=== PATIENT | male | born 1955 | race American Indian/Alaskan Native ===

== ENCOUNTER 2021-10-20 19:54 | Inpatient (IN) | payer OTHER ==
[2021-10-20] MEDS ORDERED: fentaNYL 100 MCG/2 ML INJ ONE (20:00)
[2021-10-20] MEDS ORDERED: LIDOCAINE PF 100 MG/5 ML (CARDIAC SYRINGE) IV ONE (20:08)
[2021-10-20] MEDS ORDERED: LACTATED RINGERS 1000 ML IV SOLN IV ONE (20:43)
--- NOTE | 2021-10-20 20:47 | Emergency Department Report ---
ED General Adult HPI - General Chief complaint: Dyspnea/Respdistress Stated complaint: RESPIRATORY DISTRESS Time Seen by Provider: 10/20/21 20:30 Source: patient, EMS (Verbal report received from emergency medical services. EMS documentation not available at time of chart dictation ), RN notes reviewed, old records reviewed Mode of arrival: Stretcher Limitations: Altered Mental Status - History of Present Illness Initial comments: Primary CARE doctor: Dr. José Past medical history: Prostate cancer, metastases to bone, chronic respiratory failure, anemia, generalized weakness, indwelling tracheostomy This is a 66-year-old gentleman. He is not known to myself previously. He is brought to the hospital by emergency medical services with an EMS articulated complaint of tracheostomy dislodgment and inability to replace trachea. Patient is found to be febrile and tachycardic with EMS and in the emergency room. In the ER, patient receiving [id number] ventilation from EMS and from respiratory therapy, and they are also attempting to replace patient's tracheostomy. They were unsuccessful. Patient is desaturating. Patient placed on nasal cannula at 15 L/min. Using a gum elastic bougie catheter, the patient's tracheal stoma is gently accessed and bougie is gently advanced, and palpable tracheal clicks are appreciated. A 6.0 endotracheal tube is then gently inserted over the bougie catheter, and placed appropriately into the patient's stoma. The pilot fuel engineer balloon was inflated, breath sounds are appreciated bilaterally, and patient has appropriate end-tidal capnography color change. Post procedure x-ray demonstrates close proximity to the right mainstem, so the endotracheal tube is subsequently retracted, repeat x-rays obtained, demonstrates appropriate placement. The tube was then sutured into place. A code sepsis is called overhead. The patient is awake but confused. He is not able to describe the qualitative nature of his symptoms, exacerbating factors, relieving factors or aggravating factors. No additional history is available at this time -: unknown - Related Data Allergies Allergy/AdvReac Type Severity Reaction Status Date / Time No Known Allergies Allergy Verified 10/20/21 20:58 ED Review of Systems ROS: Stated complaint: RESPIRATORY DISTRESS Other details as noted in HPI Comment: Unobtainable due to pts medical conditions ED Physical Exam - General Limitations: Altered Mental Status General appearance: anxious, in distress, obese - Head Head exam: Present: atraumatic, normocephalic - Eye Eye exam: Present: normal appearance, EOMI - ENT ENT exam: Present: normal exam, normal orophraynx, mucous membranes moist, normal external ear exam - Neck Neck exam: Absent: normal inspection (Tracheostomy stoma is noted to have some purulent material discharging.), tenderness, meningismus - Respiratory Respiratory exam: Present: respiratory distress, rales, rhonchi - Cardiovascular Cardiovascular Exam: Present: normal rhythm, tachycardia, normal heart sounds. Absent: bradycardia, irregular rhythm, systolic murmur, diastolic murmur, rubs, gallop - GI/Abdominal GI/Abdominal exam: Present: soft. Absent: distended, tenderness, guarding, rebound, rigid, pulsatile mass - Extremities Exam Extremities exam: Present: normal inspection, other (2+ pulses noted in the bilateral upper and lower extremities. There is no palpable cord. negative Homans sign. Muscular compartments are soft. The pelvis is stable.). Absent: calf tenderness - Back Exam Back exam: Present: normal inspection. Absent: tenderness, CVA tenderness (R), CVA tenderness (L), paraspinal tenderness, vertebral tenderness - Neurological Exam Neurological exam: Present: altered, other (The patient is awake. The patient moves 4 extremities. The patient is anxious and confused.) - Psychiatric Psychiatric exam: Present: anxious - Skin Skin exam: Present: warm, dry, intact, normal color. Absent: rash ED Course Vital Signs 10/20/21 10/20/21 10/20/21 19:56 20:00 20:05 Temperature Pulse Rate Respiratory Rate Blood Pressure Blood Pressure [Left] O2 Sat by Pulse 93 91 Oximetry O2 Sat by Pulse 96 Oximetry [ Changed] 10/20/21 10/20/21 10/20/21 20:16 20:31 20:45 Temperature Pulse Rate 130 H 129 H Respiratory 27 H 24 Rate Blood Pressure 90/55 98/64 Blood Pressure [Left] O2 Sat by Pulse 94 100 100 Oximetry O2 Sat by Pulse Oximetry [ Changed] 10/20/21 10/20/21 10/20/21 20:46 20:59 21:01 Temperature 99.3 F Pulse Rate 126 H 152 H 145 H Respiratory 24 24 28 H Rate Blood Pressure 100/70 89/62 Blood Pressure 89/62 [Left] O2 Sat by Pulse 100 100 Oximetry O2 Sat by Pulse Oximetry [ Changed] 10/20/21 10/20/21 10/20/21 21:15 21:31 21:45 Temperature Pulse Rate 129 H 130 H 128 H Respiratory 23 17 21 Rate Blood Pressure 96/56 99/58 105/66 Blood Pressure [Left] O2 Sat by Pulse 100 100 100 Oximetry O2 Sat by Pulse Oximetry [ Changed] 10/20/21 10/20/21 10/20/21 22:01 22:15 22:31 Temperature Pulse Rate 126 H 126 H 123 H Respiratory 23 23 26 H Rate Blood Pressure 100/70 105/71 110/64 Blood Pressure [Left] O2 Sat by Pulse 100 100 100 Oximetry O2 Sat by Pulse Oximetry [ Changed] 10/20/21 22:45 Temperature Pulse Rate 124 H Respiratory 22 Rate Blood Pressure 114/66 Blood Pressure [Left] O2 Sat by Pulse 100 Oximetry O2 Sat by Pulse Oximetry [ Changed] - Reevaluation(s) Reevaluation #1: 10/20/21 22:03 Differential diagnosis, including but not limited to: Sepsis, bacteremia, viremia, pneumonia, urinary tract infection, tracheostomy failure Assessment and plan: 66-year-old gentleman ruling in for sepsis, complicated by tracheostomy failure. I have intubated the patient through his tracheal stoma, and he is currently being maintained on a mechanical ventilator. Code sepsis called overhead, fluids, antibiotics, and appropriate laboratory studies. X-ray of the chest reviewed and appreciated. Contacted general surgery on-call, Dr. Rausch. Contacted critical care on-call, Dr. Santos. Discussed the patient's history, physical, and clinical impression. Dr. Santos of pulmonary critical care will follow in consultation. Dr. Hernandez of general surgery will follow in consultation. Blood pressure acceptable at this time, patient clinically improved on mechanical ventilation. Admit to the medical service for further management and care for the aforementioned. Hospital physician is paged to arrange admission. 10/20/21 23:02 Dr Means to admit to ICU Patient is 175 pounds, not 175 kg - Intubation Time Out Performed: No (Emergency situation) Sedative: none Laryngoscope: none Assist Device Used: Bougie ET Tube Size: 6 Tube Secured Depth (cm): 16 Tube Secured Location: other (At the neck) Tube Placement Confirmation: equal breath sounds bilat, no breath sounds over epi, confirmation by capnometr Additional Comments: Patient placed on nasal cannula at 15 L/min. He is preoxygenated to 99%. A gum elastic bougie catheter is gently placed through the tracheal stoma, and inserted distally, appreciating palpable tracheal clicks. A 6.0 endotracheal tube is then gently inserted over the gum elastic bougie catheter, and advanced distally. The bougie catheter is then removed, and the polyp balloon is inflated. The 6.0 endotracheal tube is sutured into the skin with 3-0 monofil ament nonabsorbable sutures. The patient tolerated the procedure adequately ED Medical Decision Making - Lab Data Result diagrams: 10/20/21 21:03 10/20/21 21:03 Vital Signs 10/20/21 10/20/21 10/20/21 19:56 20:00 20:05 Temperature Pulse Rate Respiratory Rate Blood Pressure Blood Pressure [Left] O2 Sat by Pulse 93 91 Oximetry O2 Sat by Pulse 96 Oximetry [ Changed] 10/20/21 10/20/21 10/20/21 20:16 20:31 20:45 Temperature Pulse Rate 130 H 129 H Respiratory 27 H 24 Rate Blood Pressure 90/55 98/64 Blood Pressure [Left] O2 Sat by Pulse 94 100 100 Oximetry O2 Sat by Pulse Oximetry [ Changed] 10/20/21 10/20/21 10/20/21 20:46 20:59 21:01 Temperature 99.3 F Pulse Rate 152 H 145 H Respiratory 24 24 28 H Rate Blood Pressure 89/62 Blood Pressure 89/62 [Left] O2 Sat by Pulse 100 Oximetry O2 Sat by Pulse Oximetry [ Changed] 10/20/21 10/20/21 21:15 21:31 Temperature Pulse Rate 129 H 130 H Respiratory 23 17 Rate Blood Pressure 96/56 99/58 Blood Pressure [Left] O2 Sat by Pulse 100 100 Oximetry O2 Sat by Pulse Oximetry [ Changed] Lab Results 10/20/21 10/20/21 10/20/21 Range/Units 21:03 21:03 21:03 WBC 9.2 (4.5-11.0) K/mm3 RBC 2.86 L (3.65-5.03) M/mm3 Hgb 7.7 L (11.8-15.2) gm/dl Hct 23.6 L (35.5-45.6) % MCV 83 L (84-94) fl MCH 27 L (28-32) pg MCHC 33 (32-34) % RDW 23.0 H (13.2-15.2) % Plt Count 535 H (140-440) K/mm3 Lymph % (Auto) 6.7 L (13.4-35.0) % [place] % (Auto) 9.4 H (0.0-7.3) % Eos % (Auto) 0.2 (0.0-4.3) % Baso % (Auto) 0.2 (0.0-1.8) % Lymph # (Auto) 0.6 L (1.2-5.4) K/mm3 [place] # (Auto) 0.9 H (0.0-0.8) K/mm3 Eos # (Auto) 0.0 (0.0-0.4) K/mm3 Baso # (Auto) 0.0 (0.0-0.1) K/mm3 Seg Neutrophils % 83.5 H (40.0-70.0) % Seg Neutrophils # 7.6 (1.8-7.7) K/mm3 APTT 41.4 H (24.2-36.6) Sec. Sodium 136 L (137-145) mmol/L Potassium 5.0 (3.6-5.0) mmol/L Chloride 101.0 (98-107) mmol/L Carbon Dioxide 18 L (22-30) mmol/L Anion Gap 22 mmol/L BUN 16 (9-20) mg/dL Creatinine 0.7 L (0.8-1.3) mg/dL Estimated GFR > 60 ml/min BUN/Creatinine Ratio 23 % Glucose 114 H (75-100) mg/dL Lactic Acid (0.7-2.0) mmol/L Calcium 7.1 L (8.4-10.2) mg/dL Total Bilirubin 0.90 (0.1-1.2) mg/dL AST 70 H (5-40) units/L ALT 7 (7-56) units/L Alkaline Phosphatase 1174 H (35-129) units/L Total Protein 5.1 L (6.3-8.2) g/dL Albumin 2.3 L (3.9-5) g/dL Albumin/Globulin Ratio 0.8 % Urine Color (Yellow) Urine Turbidity (Clear) Urine pH (5.0-7.0) Ur Specific [place] (1.003-1.030) Urine Protein (Negative) mg/dL Urine Glucose (UA) (Negative) mg/dL Urine Ketones (Negative) mg/dL Urine Blood (Negative) Urine Nitrite (Negative) Ur Reducing Substances Urine Bilirubin (Negative) Urine Ictotest Urine Urobilinogen (<2.0) mg/dL Ur Leukocyte Esterase (Negative) Urine WBC (Auto) (0.0-6.0) /HPF Urine RBC (Auto) (0.0-6.0) /HPF Urine Mucus /HPF 10/20/21 10/20/21 Range/Units 21:03 Unknown WBC (4.5-11.0) K/mm3 RBC (3.65-5.03) M/mm3 Hgb (11.8-15.2) gm/dl Hct (35.5-45.6) % MCV (84-94) fl MCH (28-32) pg MCHC (32-34) % RDW (13.2-15.2) % Plt Count (140-440) K/mm3 Lymph % (Auto) (13.4-35.0) % [place] % (Auto) (0.0-7.3) % Eos % (Auto) (0.0-4.3) % Baso % (Auto) (0.0-1.8) % Lymph # (Auto) (1.2-5.4) K/mm3 [place] # (Auto) (0.0-0.8) K/mm3 Eos # (Auto) (0.0-0.4) K/mm3 Baso # (Auto) (0.0-0.1) K/mm3 Seg Neutrophils % (40.0-70.0) % Seg Neutrophils # (1.8-7.7) K/mm3 APTT (24.2-36.6) Sec. Sodium (137-145) mmol/L Potassium (3.6-5.0) mmol/L Chloride (98-107) mmol/L Carbon Dioxide (22-30) mmol/L Anion Gap mmol/L BUN (9-20) mg/dL Creatinine (0.8-1.3) mg/dL Estimated GFR ml/min BUN/Creatinine Ratio % Glucose (75-100) mg/dL Lactic Acid 3.10 H* (0.7-2.0) mmol/L Calcium (8.4-10.2) mg/dL Total Bilirubin (0.1-1.2) mg/dL AST (5-40) units/L ALT (7-56) units/L Alkaline Phosphatase (35-129) units/L Total Protein (6.3-8.2) g/dL Albumin (3.9-5) g/dL Albumin/Globulin Ratio % Urine Color [place] (Yellow) Urine Turbidity Clear (Clear) Urine pH 5.0 (5.0-7.0) Ur Specific [place] 1.035 H (1.003-1.030) Urine Protein 30 mg/dl (Negative) mg/dL Urine Glucose (UA) Neg (Negative) mg/dL Urine Ketones Neg (Negative) mg/dL Urine Blood Neg (Negative) Urine Nitrite Neg (Negative) Ur Reducing Substances Not Reportable Urine Bilirubin Neg (Negative) Urine Ictotest Not Reportable Urine Urobilinogen < 2.0 (<2.0) mg/dL Ur Leukocyte Esterase Negative (Negative) Urine WBC (Auto) 2.0 (0.0-6.0) /HPF Urine RBC (Auto) < 1.0 (0.0-6.0) /HPF Urine Mucus Few /HPF - EKG Data -: EKG Interpreted by [place] EKG shows normal: sinus rhythm Rate: tachycardia - EKG Data When compared to previous EKG there are: previous EKG unavailable 10/20/21 21:52 The EKG is interpreted at 21: 24 Sinus rhythm, tachycardia, rate 128 bpm. Motion artifact. PACs. Not a STEMI. Normal axis. - Radiology Data Radiology results: pending, report reviewed, image reviewed XR chest 1V ap INDICATION / CLINICAL INFORMATION: ett placement. COMPARISON: None available. FINDINGS: SUPPORT DEVICES: Endotracheal tube projects over the midtrachea. Right chest wall port catheter tip terminates over the cavoatrial junction. HEART /PULMONARY VASCULATURE: Heart is enlarged. LUNGS / PLEURA: There is masslike consolidation left upper lung. Right lung appears to be clear. No sizable pleural effusion. No pneumothorax. Additional findings: Diffuse sclerosis of the osseous structures, likely reflecting diffuse osseous metastatic disease. IMPRESSION: 1. Left upper lobe mass, presumably reflecting neoplasm. 2. Suspected diffuse osseous metastatic disease. 3. Endotracheal tube projects over the midtrachea. Signer Name: Mamadou Crocker MD Signed: 10/20/2021 8:28 PM Workstation Name: [id number] Critical Care Time: Yes Critical care time in (mins) excluding proc time.: 45 Critical care attestation.: If time is entered above; I have spent that time in minutes in the direct care of this critically ill patient, excluding procedure time. ED Disposition Clinical Impression: Sepsis, Tracheostomy malfunction, Chronic respiratory failure, Prostate cancer metastatic to bone Disposition: ADMITTED INPATIENT Is pt being admited?: Yes Does the pt Need Aspirin: No Condition: Fair Referrals: LUKE JOSÉ MD [Primary Care Provider] - 3-5 Days
[2021-10-20] MEDS: fentaNYL 100 MCG/2 ML INJ IV PRN ×2 (21:01→22:01)
[2021-10-20 21:06] LABS: Mucus,Urine FEW /HPF; RBC,Urine < 1.0 /HPF (0.0-6.0)
[2021-10-20 21:16] LABS: Color,Urine Amber (Yellow)
[2021-10-20 21:17] LABS: Bilirubin,Urine NEG (Negative); Blood,Urine NEG (Negative); Urobilinogen,Urine < 2.0 mg/dL (<2.0)
[2021-10-20 21:18] LABS: Basophils % (Auto) 0.2 % (0.0-1.8); Eosinophils % (Auto) 0.2 % (0.0-4.3); Hematocrit 23.6 % (35.5-45.6); Hemoglobin 7.7 gm/dl (11.8-15.2); Lymphocytes # (Auto) 0.6 K/mm3 (1.2-5.4); Lymphocytes % (Auto) 6.7 % (13.4-35.0); Mean Corpuscular HGB Conc 33 % (32-34); Mean Corpuscular Volume 83 fl (84-94); Monocytes # (Auto) 0.9 K/mm3 (0.0-0.8); Monocytes % (Auto) 9.4 % (0.0-7.3); Platelet Count 535 K/mm3 (140-440); Red Blood Count 2.86 M/mm3 (3.65-5.03)
--- NOTE | 2021-10-20 21:33 | XRay Report ---
XR chest 1V ap INDICATION / CLINICAL INFORMATION: ett placement. COMPARISON: None available. FINDINGS: SUPPORT DEVICES: Endotracheal tube projects over the midtrachea. Right chest wall port catheter tip t erminates over the cavoatrial junction. HEART /PULMONARY VASCULATURE: Heart is enlarged. LUNGS / PLEURA: There is masslike consolidation left upper lung. Right lung appears to be clear. No s izable pleural effusion. No pneumothorax. Additional findings: Diffuse sclerosis of the osseous structures, likely reflecting diffuse osseous m etastatic disease. IMPRESSION: 1. Left upper lobe mass, presumably reflecting neoplasm. 2. Suspected diffuse osseous metastatic disease. 3. Endotracheal tube projects over the midtrachea. Signer Name: Mamadou Crocker MD Signed: 10/20/2021 9:28 PM Workstation Name: [id number]
[2021-10-20 21:38] LABS: Alanine Aminotransferase 7 units/L (7-56); Albumin 2.3 g/dL (3.9-5); Blood Urea Nitrogen 16 mg/dL (9-20); Calcium 7.1 mg/dL (8.4-10.2); Hemolysis Index 4
[2021-10-20 21:41] LABS: BUN/Creatinine Ratio 23
[2021-10-20] MEDS ORDERED: ACETAMINOPHEN 650 MG RECT SUPP PR ONE (21:44)
[2021-10-20] MEDS ORDERED: VANCOMYCIN 2,000 MG in SODIUM CHLORIDE 0.9% 500 ML 500 ML IV ONE (22:00)
[2021-10-20 22:42] LABS: ABG Base Excess -6.4 mmol/L (-2.0-3.0); ABG Methemoglobin 0.6 % (0.0-1.5); ABG Oxygen Saturation 99.3 % (95.0-99.0); ABG PCO2 30.9 mm Hg; ABG PH 7.383 pH Units (7.350-7.450)
[2021-10-20] MEDS ORDERED: CEFEPIME/NS 2 GM/100 ML 2 GM/100 ML BAG IV ONE (23:44)
[2021-10-20] MEDS ORDERED: VANCOMYCIN PHARMACY TO DOSE IV SCH (23:45)
[2021-10-20] MEDS ORDERED: ONDANSETRON 4 MG/2 ML INJ IV PRN (23:57)
[2021-10-20] MEDS ORDERED: MORPHINE 2 MG/1 ML INJ IV PRN (23:57)
[2021-10-20] MEDS ORDERED: ALBUTEROL 2.5 MG/3 ML NEBU IH PRN (23:57)
[2021-10-20] MEDS ORDERED: ACETAMINOPHEN 325 MG TAB PO PRN (23:57)
--- NOTE | 2021-10-21 00:05 | History and Physical Report ---
History of Present Illness Date of examination: 10/21/21 Date of admission: 10/21/21 Chief complaint: Dyspnea Respiratory distress History of present illness: Prostate cancer, metastases to bone, chronic respiratory failure, anemia, generalized weakness, indwelling tracheostomy 66-year-old gentleman with history of Prostate cancer, metastases to bone, chronic respiratory failure, anemia, generalized weakness, indwelling tracheostomy was brought to the emergency room because of tracheostomy dislodgment and inability to replace trachea. Patient is found to be febrile and tachycardic with EMS and in the emergency room. In the ER, patient receiving [id number] ventilation from EMS and from respiratory therapy, and they are also attempting to replace patient's tracheostomy. They were unsuccessful. Patient is desaturating. Patient placed on nasal cannula at 15 L/min. Using a gum elastic bougie catheter A 6.0 endotracheal tube is then gently inserted over the bougie catheter, and placed appropriately into the patient's stoma. The remotely piloted vehicle controller balloon was inflated, breath sounds are appreciated bilaterally, and patient has appropriate end-tidal capnography color change. Post procedure x-ray demonstrates close proximity to the right mainstem, so the endotracheal tube is subsequently retracted, repeat x-rays obtained, demonstrates appropriate placement. The tube was then sutured into place. A code sepsis is called overhead. The patient is awake but confused. In the emergency room patient also found to have WBC of 9.2, hemoglobin 7.7 and lactic acid 3.10. We are going to admit the patient to the ICU will consult critical care and surgery for evaluation 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, chronic respiratory failure, anemia, generalized weakness, indwelling tracheostomy) Past Surgical History: Other (Tracheostomy) Social history: other (Unknown) Family history: no significant family history Medications and Allergies Allergies Allergy/AdvReac Type Severity Reaction Status Date / Time No Known Allergies Allergy Verified 10/20/21 20:58 Active Meds: Active Medications Fentanyl (Fentanyl 100 Mcg/2 Ml Inj) 50 mcg IV Q10MIN PRN PRN Reason: ANALGESIA Last Admin: 10/20/21 22:01 Dose: 50 mcg Fentanyl Citrate (Fentanyl Drip Premix) 2,000 mcg in 100 mls @ 8.765 mls/hr IV TITR [place]; Protocol Cefepime HCl (Cefepime/Ns 2 Gm/100 Ml) 2 gm in 100 mls @ 200 mls/hr IV ONCE ONE; Protocol Stop: 10/21/21 00:13 Last Admin: 10/20/21 23:13 Dose: 200 mls/hr Review of Systems All systems: negative Constitutional: other (Respiratory distress) Cardiovascular: shortness of breath, dyspnea on exertion Respiratory: cough, shortness of breath, dyspnea on exertion Exam - Constitutional Vitals: Temp Pulse Resp BP Pulse Ox 99.3 F 131 H 21 113/63 95 10/20/21 20:59 10/20/21 23:39 10/20/21 23:31 10/20/21 23:31 10/20/21 23:39 General appearance: Present: severe distress - EENT Eyes: Present: PERRL ENT: hearing intact, clear oral mucosa - Neck Neck: Present: supple, normal ROM - Respiratory Respiratory effort: normal Respiratory: bilateral: diminished - Cardiovascular Heart Sounds: Present: S1 & S2. Absent: rub, click - Extremities Extremities: pulses symmetrical, No edema Peripheral Pulses: within normal limits - Abdominal General gastrointestinal: Present: soft, non-tender, non-distended, normal bowel sounds Male genitourinary: Present: normal - Integumentary Integumentary: Present: clear, warm, dry - Musculoskeletal Musculoskeletal: gait normal, strength equal bilaterally - Psychiatric Psychiatric: other (Patient is awake but confused) - Neurologic Neurologic: CNII-XII intact, moves all extremities, other (Patient is alert but confused) Results - Labs CBC & Chem 7: 10/20/21 21:03 10/20/21 21:03 Labs: Laboratory Last Values WBC 9.2 K/mm3 (4.5-11.0) 10/20/21 21:03 RBC 2.86 M/mm3 (3.65-5.03) L 10/20/21 21:03 Hgb 7.7 gm/dl (11.8-15.2) L 10/20/21 21:03 Hct 23.6 % (35.5-45.6) L 10/20/21 21:03 MCV 83 fl (84-94) L 10/20/21 21:03 MCH 27 pg (28-32) L 10/20/21 21:03 MCHC 33 % (32-34) 10/20/21 21:03 RDW 23.0 % (13.2-15.2) H 10/20/21 21:03 Plt Count 535 K/mm3 (140-440) H 10/20/21 21:03 Lymph % (Auto) 6.7 % (13.4-35.0) L 10/20/21 21:03 [place] % (Auto) 9.4 % (0.0-7.3) H 10/20/21 21:03 Eos % (Auto) 0.2 % (0.0-4.3) 10/20/21 21:03 Baso % (Auto) 0.2 % (0.0-1.8) 10/20/21 21:03 Lymph # (Auto) 0.6 K/mm3 (1.2-5.4) L 10/20/21 21:03 [place] # (Auto) 0.9 K/mm3 (0.0-0.8) H 10/20/21 21:03 Eos # (Auto) 0.0 K/mm3 (0.0-0.4) 10/20/21 21:03 Baso # (Auto) 0.0 K/mm3 (0.0-0.1) 10/20/21 21:03 Seg Neutrophils % 83.5 % (40.0-70.0) H 10/20/21 21:03 Seg Neutrophils # 7.6 K/mm3 (1.8-7.7) 10/20/21 21:03 APTT 41.4 Sec. (24.2-36.6) H 10/20/21 21:03 ABG pH 7.383 pH Units (7.350-7.450) 10/20/21 22:30 ABG pCO2 30.9 mm Hg 10/20/21 22:30 ABG pO2 218.0 mm Hg (80.0-90.0) H 10/20/21 22:30 ABG HCO3 18.0 mmol/L (20.0-26.0) L 10/20/21 22:30 ABG O2 Saturation 99.3 % (95.0-99.0) H 10/20/21 22:30 ABG O2 Content 11.0 (0.0-44) 10/20/21 22:30 ABG Base Excess -6.4 mmol/L (-2.0-3.0) L 10/20/21 22:30 ABG Hemoglobin 7.6 gm/dl (14.0-18.0) L 10/20/21 22:30 ABG Carboxyhemoglobin 1.1 % (0.0-5.0) 10/20/21 22:30 ABG Methemoglobin 0.6 % (0.0-1.5) 10/20/21 22:30 Oxyhemoglobin 97.6 % (95.0-99.0) 10/20/21 22:30 FiO2 100 % 10/20/21 22:30 Sodium 136 mmol/L (137-145) L 10/20/21 21:03 Potassium 5.0 mmol/L (3.6-5.0) 10/20/21 21:03 Chloride 101.0 mmol/L (98-107) 10/20/21 21:03 Carbon Dioxide 18 mmol/L (22-30) L 10/20/21 21:03 Anion Gap 22 mmol/L 10/20/21 21:03 BUN 16 mg/dL (9-20) 10/20/21 21:03 Creatinine 0.7 mg/dL (0.8-1.3) L 10/20/21 21:03 Estimated GFR > 60 ml/min 10/20/21 21:03 BUN/Creatinine Ratio 23 % 10/20/21 21:03 Glucose 114 mg/dL (75-100) H 10/20/21 21:03 Lactic Acid 3.10 mmol/L (0.7-2.0) H* 10/20/21 21:03 Calcium 7.1 mg/dL (8.4-10.2) L 10/20/21 21:03 Total Bilirubin 0.90 mg/dL (0.1-1.2) 10/20/21 21:03 AST 70 units/L (5-40) H 10/20/21 21:03 ALT 7 units/L (7-56) 10/20/21 21:03 Alkaline Phosphatase 1174 units/L (35-129) H 10/20/21 21:03 Total Protein 5.1 g/dL (6.3-8.2) L 10/20/21 21:03 Albumin 2.3 g/dL (3.9-5) L 10/20/21 21:03 Albumin/Globulin Ratio 0.8 % 10/20/21 21:03 Urine Color [place] (Yellow) 10/20/21 Unknown Urine Turbidity Clear (Clear) 10/20/21 Unknown Urine pH 5.0 (5.0-7.0) 10/20/21 Unknown Ur Specific [place] 1.035 (1.003-1.030) H 10/20/21 Unknown Urine Protein 30 mg/dl mg/dL (Negative) 10/20/21 Unknown Urine Glucose (UA) Neg mg/dL (Negative) 10/20/21 Unknown Urine Ketones Neg mg/dL (Negative) 10/20/21 Unknown Urine Blood Neg (Negative) 10/20/21 Unknown Urine Nitrite Neg (Negative) 10/20/21 Unknown Ur Reducing Substances Not Reportable 10/20/21 Unknown Urine Bilirubin Neg (Negative) 10/20/21 Unknown Urine Ictotest Not Reportable 10/20/21 Unknown Urine Urobilinogen < 2.0 mg/dL (<2.0) 10/20/21 Unknown Ur Leukocyte Esterase Negative (Negative) 10/20/21 Unknown Urine WBC (Auto) 2.0 /HPF (0.0-6.0) 10/20/21 Unknown Urine RBC (Auto) < 1.0 /HPF (0.0-6.0) 10/20/21 Unknown Urine Mucus Few /HPF 10/20/21 Unknown Microbiology: Microbiology 10/20/21 21:03 Peripheral/Venous Blood Culture - Preliminary Culture in Progress 10/20/21 21:03 Peripheral/Venous Blood Culture - Preliminary Culture in Progress - Imaging and Cardiology Chest x-ray: report reviewed Assessment and Plan VTE prophylaxis?: Chemical Plan of care discussed with patient/family: Yes - Patient Problems (1) Acute respiratory failure Current Visit: Yes Status: Acute Plan to address problem: Admit the patient to the ICU. Patient is on vent through tracheostomy, DuoNeb by nebulizer every 4 hours. Albuterol via nebulizer every 4 hours as needed. Will consult critical care evaluation as well as surgery for evaluation and management. (2) Sepsis Current Visit: Yes Status: Acute Plan to address problem: D5 half-normal saline at the rate of 100 cc/h. Cefepime 1 g IV every 8 hours and vancomycin 1 g IV every 12 hours. We will do the blood cultures sputum culture. We recheck the CBC and lactic acid in the morning. (3) Weakness Current Visit: Yes Status: Acute Plan to address problem: D5 half-normal saline at the rate of 100 cc/h. Reconsult nutrition evaluation for malnutrition (4) Anemia Current Visit: Yes Status: Acute Plan to address problem: We will closely monitor the hemoglobin we will transfuse if the hemoglobin less than 7.5. Recheck CBC in the morning (5) Prostate cancer metastatic to bone Current Visit: Yes Status: Acute Plan to address problem: . We continue the home medication. Outpatient follow-up with oncology. (6) Tracheostomy malfunction Current Visit: Yes Status: Acute Plan to address problem: Patient is on vent through tracheostomy, DuoNeb by nebulizer every 4 hours. Albuterol via nebulizer every 4 hours as needed. Will consult critical care evaluation as well as surgery for evaluation and management. (7) DVT prophylaxis Current Visit: Yes Status: Acute Plan to address problem: Heparin 5000 units subcu every 12 hours for DVT prophylaxis. Pepcid 20 mg IV every 12 hours for GI prophylaxis. Patient is a full code
[2021-10-21] MEDS: fentaNYL DRIP Premix 2,000 MCG/100 ML BAG IV SCH ×3 (01:26→23:22)
[2021-10-21] MEDS: IPRATROPIUM/ALBUTEROL SULFATE 3 ML AMPUL.NEB IH SCH ×4 (04:26→21:08)
[2021-10-21] MEDS: D5W/0.45% NACL 1,000 ML IV SCH (04:32)
[2021-10-21 05:05] LABS: Basophils # (Auto) 0.1 K/mm3 (0.0-0.1); Basophils % (Auto) 0.8 % (0.0-1.8); Eosinophils % (Auto) 0.6 % (0.0-4.3); Hematocrit 21.7 % (35.5-45.6); Hemoglobin 6.9 gm/dl (11.8-15.2); Lymphocytes # (Auto) 0.5 K/mm3 (1.2-5.4); Mean Corpuscular HGB Conc 32 % (32-34); Mean Corpuscular Volume 83 fl (84-94); Monocytes # (Auto) 0.6 K/mm3 (0.0-0.8); Monocytes % (Auto) 9.2 % (0.0-7.3); Platelet Count 490 K/mm3 (140-440); Red Blood Count 2.63 M/mm3 (3.65-5.03)
[2021-10-21 05:12] LABS: Red Cell Distribution Width 22.7 % (13.2-15.2)
[2021-10-21 05:13] LABS: ABG HCO3 19.1 mmol/L (20.0-26.0); ABG Methemoglobin 0.5 % (0.0-1.5); ABG Oxygen Saturation 97.5 % (95.0-99.0); ABG PCO2 30.7 mm Hg; ABG PH 7.411 pH Units (7.350-7.450); ABG PO2 94.2 mm Hg (80.0-90.0)
[2021-10-21 05:26] LABS: BUN/Creatinine Ratio 30; Blood Urea Nitrogen 18 mg/dL (9-20); Calcium 7.6 mg/dL (8.4-10.2); Hemolysis Index 8
--- NOTE | 2021-10-21 07:02 | Consultation ---
History of Present Illness Reason for consult: abdominal pain - History of present illness History of present illness: 66-year-old gentleman with history of Prostate cancer, metastases to bone, chronic respiratory failure, anemia, generalized weakness, indwelling tracheostomy was brought to the emergency room because of tracheostomy dislodgment and inability to replace trachea. Patient is found to be febrile and tachycardic with EMS and in the emergency room. In the ER, patient receiving [id number] ventilation from EMS and from respiratory therapy, and they are also attempting to replace patient's tracheostomy. They were unsuccessful. Patient is desaturating. Patient placed on nasal cannula at 15 L/min. Using a gum elastic bougie catheter A 6.0 endotracheal tube is then gently inserted over the bougie catheter, and placed appropriately into the patient's stoma. The air force pilot balloon was inflated, breath sounds are appreciated bilaterally, and patient has appropriate end-tidal capnography color change. Post procedure x-ray demonstrates close proximity to the right mainstem, so the endotracheal tube is subsequently retracted, repeat x-rays obtained, demonstrates appropriate placement. The tube was then sutured into place. A code sepsis is called overhead. The patient is awake but confused. In the emergency room patient also found to have WBC of 9.2, hemoglobin 7.7 and lactic acid 3.10. We are going to admit the patient to the ICU will consult critical care and surgery for evaluation. surgical consult is for replacement of the shiley tracheostomy device. 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, chronic respiratory failure, anemia, generalized weakness, indwelling tracheostomy) Past Surgical History: Other (Tracheostomy) Social history: other (Unknown) Family history: no significant family history Medications and Allergies Allergies Allergy/AdvReac Type Severity Reaction Status Date / Time No Known Allergies Allergy Verified 10/20/21 20:58 Active Meds: Active Medications Acetaminophen (Acetaminophen 325 Mg Tab) 650 mg PO Q4H PRN PRN Reason: Pain MILD(1-3)/Fever >100.5/RIVAS Albuterol (Albuterol 2.5 Mg/3 Ml Nebu) 2.5 mg IH Q3HRT PRN PRN Reason: Shortness Of Breath Albuterol/Ipratropium (Ipratropium/Albuterol Sulfate 3 Ml Ampul.Neb) 1 ampul IH Q6HRT [place] Last Admin: 10/21/21 04:26 Dose: 1 ampul Famotidine (Famotidine 20 Mg/2 Ml Inj) 20 mg IV BID [facility] Fentanyl (Fentanyl 100 Mcg/2 Ml Inj) 50 mcg IV Q10MIN PRN PRN Reason: ANALGESIA Last Admin: 10/20/21 22:01 Dose: 50 mcg Heparin Sodium (Porcine) (Heparin 5,000 Unit/1 Ml Vial) 5,000 unit SUB-Q Q12HR [place] Hydromorphone HCl (Hydromorphone 1 Mg/1 Ml Inj) 0.5 mg IV Q3H PRN PRN Reason: Pain , Severe (7-10) Fentanyl Citrate (Fentanyl Drip Premix) 2,000 mcg in 100 mls @ 8.765 mls/hr IV TITR [place]; Protocol Last Titration: 10/21/21 02:10 Dose: 2 mcg/kg/hr, 17.53 mls/hr Dextrose/Sodium Chloride (D5/0.45ns) 1,000 mls @ 100 mls/hr IV DIRECT [place] Last Admin: 10/21/21 04:32 Dose: 100 mls/hr Cefepime HCl (Cefepime/Ns 1 Gm/100 Ml) 1 gm in 100 mls @ 200 mls/hr IV Q8H [place]; Protocol Vancomycin HCl 1,250 mg/ (Sodium Chloride) 275 mls @ 166.667 mls/hr IV Q12H [place] Morphine Sulfate (Morphine 2 Mg/1 Ml Inj) 2 mg IV Q4H PRN PRN Reason: Pain, Moderate (4-6) Ondansetron HCl (Ondansetron 4 Mg/2 Ml Inj) 4 mg IV Q8H PRN PRN Reason: Nausea And Vomiting Sodium Chloride (Sodium Chloride 0.9% 10 Ml Flush Syringe) 10 ml IV BID [place] Sodium Chloride (Sodium Chloride 0.9% 10 Ml Flush Syringe) 10 ml IV PRN PRN PRN Reason: LINE FLUSH Exam Vital Signs Pulse Ox 93 10/20/21 19:56 Results - Labs 10/21/21 15:23 10/21/21 04:44 Abnormal lab results 10/20/21 10/20/21 10/20/21 Range/Units 21:03 21:03 21:03 RBC 2.86 L (3.65-5.03) M/mm3 Hgb 7.7 L (11.8-15.2) gm/dl Hct 23.6 L (35.5-45.6) % MCV 83 L (84-94) fl MCH 27 L (28-32) pg RDW 23.0 H (13.2-15.2) % Plt Count 535 H (140-440) K/mm3 Lymph % (Auto) 6.7 L (13.4-35.0) % [place] % (Auto) 9.4 H (0.0-7.3) % Lymph # (Auto) 0.6 L (1.2-5.4) K/mm3 [place] # (Auto) 0.9 H (0.0-0.8) K/mm3 Seg Neutrophils % 83.5 H (40.0-70.0) % APTT 41.4 H (24.2-36.6) Sec. ABG pO2 (80.0-90.0) mm Hg ABG HCO3 (20.0-26.0) mmol/L ABG O2 Saturation (95.0-99.0) % ABG Base Excess (-2.0-3.0) mmol/L ABG Hemoglobin (14.0-18.0) gm/dl Sodium 136 L (137-145) mmol/L Carbon Dioxide 18 L (22-30) mmol/L Creatinine 0.7 L (0.8-1.3) mg/dL Glucose 114 H (75-100) mg/dL Lactic Acid (0.7-2.0) mmol/L Calcium 7.1 L (8.4-10.2) mg/dL AST 70 H (5-40) units/L Alkaline Phosphatase 1174 H (35-129) units/L Total Protein 5.1 L (6.3-8.2) g/dL Albumin 2.3 L (3.9-5) g/dL Ur Specific [place] (1.003-1.030) 10/20/21 10/20/21 10/20/21 Range/Units 21:03 22:30 Unknown RBC (3.65-5.03) M/mm3 Hgb (11.8-15.2) gm/dl Hct (35.5-45.6) % MCV (84-94) fl MCH (28-32) pg RDW (13.2-15.2) % Plt Count (140-440) K/mm3 Lymph % (Auto) (13.4-35.0) % [place] % (Auto) (0.0-7.3) % Lymph # (Auto) (1.2-5.4) K/mm3 [place] # (Auto) (0.0-0.8) K/mm3 Seg Neutrophils % (40.0-70.0) % APTT (24.2-36.6) Sec. ABG pO2 218.0 H (80.0-90.0) mm Hg ABG HCO3 18.0 L (20.0-26.0) mmol/L ABG O2 Saturation 99.3 H (95.0-99.0) % ABG Base Excess -6.4 L (-2.0-3.0) mmol/L ABG Hemoglobin 7.6 L (14.0-18.0) gm/dl Sodium (137-145) mmol/L Carbon Dioxide (22-30) mmol/L Creatinine (0.8-1.3) mg/dL Glucose (75-100) mg/dL Lactic Acid 3.10 H* (0.7-2.0) mmol/L Calcium (8.4-10.2) mg/dL AST (5-40) units/L Alkaline Phosphatase (35-129) units/L Total Protein (6.3-8.2) g/dL Albumin (3.9-5) g/dL Ur Specific [place] 1.035 H (1.003-1.030) 10/21/21 10/21/21 10/21/21 Range/Units 04:44 04:44 04:44 RBC 2.63 L (3.65-5.03) M/mm3 Hgb 6.9 L (11.8-15.2) gm/dl Hct 21.7 L (35.5-45.6) % MCV 83 L (84-94) fl MCH 26 L (28-32) pg RDW 22.7 H (13.2-15.2) % Plt Count 490 H (140-440) K/mm3 Lymph % (Auto) 7.0 L (13.4-35.0) % [place] % (Auto) 9.2 H (0.0-7.3) % Lymph # (Auto) 0.5 L (1.2-5.4) K/mm3 [place] # (Auto) (0.0-0.8) K/mm3 Seg Neutrophils % 82.4 H (40.0-70.0) % APTT (24.2-36.6) Sec. ABG pO2 94.2 H (80.0-90.0) mm Hg ABG HCO3 19.1 L (20.0-26.0) mmol/L ABG O2 Saturation (95.0-99.0) % ABG Base Excess -5.0 L (-2.0-3.0) mmol/L ABG Hemoglobin 6.6 L (14.0-18.0) gm/dl Sodium (137-145) mmol/L Carbon Dioxide 17 L (22-30) mmol/L Creatinine 0.6 L (0.8-1.3) mg/dL Glucose (75-100) mg/dL Lactic Acid (0.7-2.0) mmol/L Calcium 7.6 L (8.4-10.2) mg/dL AST (5-40) units/L Alkaline Phosphatase (35-129) units/L Total Protein (6.3-8.2) g/dL Albumin (3.9-5) g/dL Ur Specific [place] (1.003-1.030) Diabetes panel 10/20/21 10/21/21 Range/Units 21:03 04:44 Sodium 136 L 138 (137-145) mmol/L Potassium 5.0 5.0 (3.6-5.0) mmol/L Chloride 101.0 105.7 (98-107) mmol/L Carbon Dioxide 18 L 17 L (22-30) mmol/L BUN 16 18 (9-20) mg/dL Creatinine 0.7 L 0.6 L (0.8-1.3) mg/dL Glucose 114 H 96 (75-100) mg/dL Calcium 7.1 L 7.6 L (8.4-10.2) mg/dL AST 70 H (5-40) units/L ALT 7 (7-56) units/L Alkaline Phosphatase 1174 H (35-129) units/L Total Protein 5.1 L (6.3-8.2) g/dL Albumin 2.3 L (3.9-5) g/dL Calcium panel 10/20/21 10/21/21 Range/Units 21:03 04:44 Calcium 7.1 L 7.6 L (8.4-10.2) mg/dL Albumin 2.3 L (3.9-5) g/dL Pituitary panel 10/20/21 10/21/21 Range/Units 21:03 04:44 Sodium 136 L 138 (137-145) mmol/L Potassium 5.0 5.0 (3.6-5.0) mmol/L Chloride 101.0 105.7 (98-107) mmol/L Carbon Dioxide 18 L 17 L (22-30) mmol/L BUN 16 18 (9-20) mg/dL Creatinine 0.7 L 0.6 L (0.8-1.3) mg/dL Glucose 114 H 96 (75-100) mg/dL Calcium 7.1 L 7.6 L (8.4-10.2) mg/dL Adrenal panel 10/20/21 10/21/21 Range/Units 21:03 04:44 Sodium 136 L 138 (137-145) mmol/L Potassium 5.0 5.0 (3.6-5.0) mmol/L Chloride 101.0 105.7 (98-107) mmol/L Carbon Dioxide 18 L 17 L (22-30) mmol/L BUN 16 18 (9-20) mg/dL Creatinine 0.7 L 0.6 L (0.8-1.3) mg/dL Glucose 114 H 96 (75-100) mg/dL Calcium 7.1 L 7.6 L (8.4-10.2) mg/dL Total Bilirubin 0.90 (0.1-1.2) mg/dL AST 70 H (5-40) units/L ALT 7 (7-56) units/L Alkaline Phosphatase 1174 H (35-129) units/L Total Protein 5.1 L (6.3-8.2) g/dL Albumin 2.3 L (3.9-5) g/dL Assessment and Plan surgical consult is for replacement of the shiley tracheostomy device. Will discuss with shipping coordinator, pulmonary and anesthesia. CT of neck imaging reviewed. tracheal stenosis extends from just below the glott ic area to the level of the thoracic inlet. Replacing the ET tube would require a long stem shiley. Reccommend transfer to facility with ENT and Thoracic services. Also not Dr. Santos' last note regarding pt's advanced directives.
[2021-10-21] MEDS: CEFEPIME/NS 1 GM/100 ML 1 GM/100 ML BAG IV SCH ×2 (07:50→17:22)
[2021-10-21] MEDS ORDERED: SODIUM CHLORIDE 0.9% 500 ML 500 ML IV SCH ×2 (08:00→16:25)
--- NOTE | 2021-10-21 09:47 | XRay Report ---
CHEST - 1 VIEW INDICATION: follow up respiratory failure COMPARISON: Yesterday FINDINGS: SUPPORT DEVICES: Stable support device positioning. HEART: Stable cardiomediastinal silhouette. LUNGS/PLEURA: Metastatic disease and patchy multifocal airspace disease again noted, improved in the left upper lobe. ADDITIONAL FINDINGS: None. IMPRESSION: Slightly improved exam. Signer Name: Reese Yeung MD Signed: 10/21/2021 9:43 AM Workstation Name: [id number]
[2021-10-21] MEDS ORDERED: LACTATED RINGERS 1,000 ML IV ONE ×3 (10:00→15:00)
[2021-10-21] MEDS ORDERED: VANCOMYCIN 1,000 MG in SODIUM CHLORIDE 0.9% 500 ML 500 ML IV SCH (10:00)
[2021-10-21] MEDS: HEPARIN 5,000 UNIT/1 ML VIAL SUB-Q SCH ×2 (10:26→21:51)
[2021-10-21] MEDS: ACETAMINOPHEN 650 MG RECT SUPP PR PRN ×2 (10:26→23:44)
[2021-10-21] MEDS: FAMOTIDINE 20 MG/2 ML INJ IV SCH ×2 (10:26→21:51)
--- NOTE | 2021-10-21 11:26 | Electrocardiograph Report ---
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
--- NOTE | 2021-10-21 11:27 | Electrocardiograph Report ---
[facility] Test Date: 2021-10-21 Test Time: 10:20:37 Pat Name: SHAUN ADAMS Department: Room: A252 1 Gender: M Managed Care Nurse: NURSE : 1955 Requested By: AGUEDA SALINAS Order Number: [id number] Reading MD: Gera Bolaños Measurements Intervals [place] Rate: 150 P: 263 [place]: 52 QRS: 68 QRSD: 73 T: 86 QT: 346 QTc: 547 Interpretive Statements Sinus or ectopic atrial tachycardia Prolonged QT interval Compared to ECG 10/20/2021 21:24:12 Prolonged QT interval now present Sinus tachycardia no longer present Myocardial infarct finding no longer present Electronically Signed On 10-21-2021 11:27:37 EDT by Gera Bolaños
--- NOTE | 2021-10-21 11:49 | Consultation ---
History of Present Illness Consult date: 10/21/21 Requesting physician: TAJ FIORE Reason for consult: other (Airway Dislodgement) History of present illness: 66 y/o male with known Prostate CA with mets to bone and chronic respiratory failure admitted via the ED after patient had dislodgement of trach. Per ED notes, RT and EMS not able to replace trach so using a bougie, stoma was intubated with a 6.0 tube. Per ED they spoke with general surgery who agreed to evaluate patient and replace trach as this ET tube was placed as a temporary measure. Remainder of the review is either unobtainable or negative. Currently on Fent drip and has been placed on the vent via ET in stoma that is sutured in. 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, chronic respiratory failure, anemia, generalized weakness, indwelling tracheostomy) Past Surgical History: Other (Tracheostomy) Social history: other (Unknown) Family history: no significant family history Medications and Allergies Allergies Allergy/AdvReac Type Severity Reaction Status Date / Time No Known Allergies Allergy Verified 10/20/21 20:58 Active Meds: Active Medications Acetaminophen (Acetaminophen 325 Mg Tab) 650 mg PO Q4H PRN PRN Reason: Pain MILD(1-3)/Fever >100.5/RIVAS Acetaminophen (Acetaminophen 650 Mg Rect Supp) 650 mg PA Q4H PRN PRN Reason: Pain, Mild (1-3) Last Admin: 10/21/21 10:26 Dose: 650 mg Albuterol (Albuterol 2.5 Mg/3 Ml Nebu) 2.5 mg IH Q3HRT PRN PRN Reason: Shortness Of Breath Albuterol/Ipratropium (Ipratropium/Albuterol Sulfate 3 Ml Ampul.Neb) 1 ampul IH Q6HRT [facility] Last Admin: 10/21/21 08:35 Dose: 1 ampul Famotidine (Famotidine 20 Mg/2 Ml Inj) 20 mg IV BID [facility] Last Admin: 10/21/21 10:26 Dose: 20 mg Fentanyl (Fentanyl 100 Mcg/2 Ml Inj) 50 mcg IV Q10MIN PRN PRN Reason: ANALGESIA Last Admin: 10/20/21 22:01 Dose: 50 mcg Heparin Sodium (Porcine) (Heparin 5,000 Unit/1 Ml Vial) 5,000 unit SUB-Q Q12HR [facility] Last Admin: 10/21/21 10:26 Dose: 5,000 unit Hydromorphone HCl (Hydromorphone 1 Mg/1 Ml Inj) 0.5 mg IV Q3H PRN PRN Reason: Pain , Severe (7-10) Fentanyl Citrate (Fentanyl Drip Premix) 2,000 mcg in 100 mls @ 8.765 mls/hr IV TITR [place]; Protocol Last Titration: 10/21/21 02:10 Dose: 2 mcg/kg/hr, 17.53 mls/hr Dextrose/Sodium Chloride (D5/0.45ns) 1,000 mls @ 100 mls/hr IV DIRECT [place] Last Admin: 10/21/21 04:32 Dose: 100 mls/hr Cefepime HCl (Cefepime/Ns 1 Gm/100 Ml) 1 gm in 100 mls @ 200 mls/hr IV Q8H [place]; Protocol Last Admin: 10/21/21 07:50 Dose: 200 mls/hr Vancomycin HCl 1,250 mg/ (Sodium Chloride) 275 mls @ 166.667 mls/hr IV Q12H [facility] Sodium Chloride (Nacl 0.9% 500 Ml) 500 mls @ 0 mls/hr IV ONCE@0800 [facility] Stop: 10/21/21 18:00 Last Admin: 10/21/21 10:27 Dose: 42 mls/hr Morphine Sulfate (Morphine 2 Mg/1 Ml Inj) 2 mg IV Q4H PRN PRN Reason: Pain, Moderate (4-6) Ondansetron HCl (Ondansetron 4 Mg/2 Ml Inj) 4 mg IV Q8H PRN PRN Reason: Nausea And Vomiting Sodium Chloride (Sodium Chloride 0.9% 10 Ml Flush Syringe) 10 ml IV BID [facility] Sodium Chloride (Sodium Chloride 0.9% 10 Ml Flush Syringe) 10 ml IV PRN PRN PRN Reason: LINE FLUSH Review of Systems ROS unobtainable: due to mental status Physical Examination Vital signs: Vital Signs Pulse Ox 93 10/20/21 19:56 General appearance: asleep Eyes: non-icteric Neck: other (6.0 ET tube in stoma) Effort: normal Ascultation: Bilateral: clear Percussion: Bilateral: not dull Cardiovascular: other (sinus tach) Gastrointestinal: normoactive bowel sounds Extremities: no cyanosis, no edema, pulses normal Results - Laboratory Findings CBC and BMP: 10/21/21 04:44 10/21/21 04:44 ABG ABG pH 7.411 pH Units (7.350-7.450) 10/21/21 04:44 ABG pCO2 30.7 mm Hg 10/21/21 04:44 ABG pO2 94.2 mm Hg (80.0-90.0) H 10/21/21 04:44 ABG O2 Saturation 97.5 % (95.0-99.0) 10/21/21 04:44 Abnormal lab findings: Abnormal Labs 10/20/21 10/20/21 10/20/21 21:03 21:03 21:03 RBC 2.86 L Hgb 7.7 L Hct 23.6 L MCV 83 L MCH 27 L RDW 23.0 H Plt Count 535 H Lymph % (Auto) 6.7 L [place] % (Auto) 9.4 H Lymph # (Auto) 0.6 L [place] # (Auto) 0.9 H Seg Neutrophils % 83.5 H APTT 41.4 H ABG pO2 ABG HCO3 ABG O2 Saturation ABG Base Excess ABG Hemoglobin Sodium 136 L Carbon Dioxide 18 L Creatinine 0.7 L Glucose 114 H Lactic Acid Calcium 7.1 L AST 70 H Alkaline Phosphatase 1174 H Total Protein 5.1 L Albumin 2.3 L Ur Specific [place] Crossmatch 10/20/21 10/20/21 10/20/21 21:03 22:30 Unknown RBC Hgb Hct MCV MCH RDW Plt Count Lymph % (Auto) [place] % (Auto) Lymph # (Auto) [place] # (Auto) Seg Neutrophils % APTT ABG pO2 218.0 H ABG HCO3 18.0 L ABG O2 Saturation 99.3 H ABG Base Excess -6.4 L ABG Hemoglobin 7.6 L Sodium Carbon Dioxide Creatinine Glucose Lactic Acid 3.10 H* Calcium AST Alkaline Phosphatase Total Protein Albumin Ur Specific [place] 1.035 H Crossmatch 10/21/21 10/21/21 10/21/21 04:44 04:44 04:44 RBC 2.63 L Hgb 6.9 L Hct 21.7 L MCV 83 L MCH 26 L RDW 22.7 H Plt Count 490 H Lymph % (Auto) 7.0 L [place] % (Auto) 9.2 H Lymph # (Auto) 0.5 L [place] # (Auto) Seg Neutrophils % 82.4 H APTT ABG pO2 94.2 H ABG HCO3 19.1 L ABG O2 Saturation ABG Base Excess -5.0 L ABG Hemoglobin 6.6 L Sodium Carbon Dioxide 17 L Creatinine 0.6 L Glucose Lactic Acid Calcium 7.6 L AST Alkaline Phosphatase Total Protein Albumin Ur Specific [place] Crossmatch 10/21/21 10/21/21 07:37 07:37 RBC Hgb Hct MCV MCH RDW Plt Count Lymph % (Auto) [place] % (Auto) Lymph # (Auto) [place] # (Auto) Seg Neutrophils % APTT ABG pO2 ABG HCO3 ABG O2 Saturation ABG Base Excess ABG Hemoglobin Sodium Carbon Dioxide Creatinine Glucose Lactic Acid 4.10 H* Calcium AST Alkaline Phosphatase Total Protein Albumin Ur Specific [place] Crossmatch See Detail - Diagnostic Findings Chest x-ray: image reviewed Assessment and Plan 66 y/o male with chronic respiratory failure, admitted with dislodgement of trach. Called the Rehab/custodial doc who looked up patient. He came [place] the [place] and apparently has tracheal stenosis with vocal cord paralysis and there was no plan to remove this trach. I have spoken with general surgery about this as well. Will do the followin. Attempt to obtain records from [place], especially regarding the tracheal stenosis and the level of stenosis. 2. Will obtain CT of neck here, noncontrast to see if we can evaluate the level 3. Consider attempting to transfer back to [place] if gen surge not able to help with airway or to an institution that has ENT care 4. Tachycardia is sinus. Patient is in pain but likely is volume deplete as well. He has gotten one unit of blood and will give several boluses of fluids now and reassess as tolerated. 5. Anemia, likely from chronic disease. Agree with transfusion but would have given 2 units. 6. Pain control 7. Guarded prognosis. CCT 31 minutes.
--- NOTE | 2021-10-21 12:30 | Event Note ---
Date: 10/21/21 Patient has an advanced directive and a medical power of divorce attorney who is here and has brought in his prostate cancer meds. His advance directive says that he would not want to be resuscitated and would not want to be placed on mechanical ventilation. He has now been made an AND.
[2021-10-21] MEDS: VANCOMYCIN 1,250 MG in SODIUM CHLORIDE 0.9% 250ML 250 ML IV SCH ×2 (13:06→23:33)
[2021-10-21] MEDS ORDERED: DEXTROSE 50% IN WATER (25GM) 50 ML SYRINGE IV PRN (15:09)
--- NOTE | 2021-10-21 15:27 | Progress Note ---
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, chronic respiratory failure s/p trach, sacral stenosis, HTN, SVT admitted with dislodgment of tracheostomy Neuro: h/o chronic pain -Sedated with fentanyl -RASS goal 0 to -1 -Avoid delirium -Reorientation as needed -Maintain sleep-wake cycle -As needed analgesia -Bilateral restraints for safety Cardiac: ST, h/o SVT, HTN -Cardiology consulted, appreciate recommendations -Blood pressure monitoring per protocol -We will give LR boluses and reassess -Given two bolus so far -Of note patient home meds include metoprolol 50mg BID -BP soft->with holding IV BB for now Respiratory: Chronic respiratory failure, h/o tracheal stenosis, vocal cord paralysis -[facility] consulted, appreciate recommendations -Intubated with a 6.0 ETT and tracheostomy tube on 10/20 in the ED -A.m. vent settings: Assist-control/PRVC tidal volume 500, rate 18, PEEP 6, FiO2 60% -See RT notes for titration -A.m. ABG noted -VAP bundle -SPO2 monitoring -CT neck pending GI: Protein calorie malnutrition, elevated alkaline phos and AST -24 hours -523 mL -PPI -MIVF while n.p.o. -Trend LFTs : Metabolic acidosis -Strict intake and output -Renally dose medications -Avoid nephrotoxic medications -Daily weights ID: Lactic acidosis, ? PNA, Sepsis -meets criteria with LA, tachycardia, possible pna on imaging -Infectious disease consulted, appreciate recommendation -Antibiotic therapy with cefepime, vancomycin -Follow-up blood culture -Monitor WBC and temperature curve Endo: NAD -Avoid hypoglycemia -SSI -Accu-Cheks q. 6 Heme: Anemia, h/o anemia of chronic disease -Trend CBC -Transfuse hemoglobin less than 7 -h/h 6.9/21.7 -1 unit prbc -repeat hbg 6.8 -1 unit prbc -Monitor for signs of bleeding -SCDs to BLE while in bed -heparin subq The high probability of a clinically significant, sudden or life threatening deterioration of the [multi] system(s) required my full and direct attention, intervention and personal management. The aggregate critical care time was [60] minutes. This time is in addition to time spent performing reported procedures but includes the following: [x] Data Review and interpretation [x] Patient assessment and monitoring of vital signs [x] Documentation [x] Medication orders and management Disposition Plan: icu Total Time Spent with Patient (Minutes): 60 History Interval history: This is 66 year old male with Prostate CA with mets to spine s/p radiaiton therapy, chronic resp failure s/p trach (2018), trachal stenosis, HTN, h/o SVT, COVID 19 (06/2021) with moderna vaccine x2, anemia and chronic pain who presented to the ED on 10/20 from his [facility] after tracheostomy dislodgement and inability to replace trach via EMS on 15 L NC. In the ED 6.0 OETT was inserted into his tracheostomy and sutured into place. Work-up in the emergency department revealed lactic acidosis, tachycardia. Patient was admitted to the hospitalist service with consults to [facility] and general surgery patient was admitted to the hospital service Hospital course to date: 10/21: Code status changed to DNR, POA brought Living will which is in the chart along with records from [facility]. LR bolus for tachycardia. Upon review of medical records it was noted that patient was on beta-giovanni. No p.o. access currently. Withholding IV beta-giovanni initiation due to low blood pressure. We will continue antibiotics due to concerning imaging. Neck CT pending. Hospitalist Physical - Constitutional Vitals: Temp Pulse Resp BP Pulse Ox 100.9 F H 128 H 24 84/60 100 10/21/21 11:54 10/21/21 14:46 10/21/21 14:46 10/21/21 13:00 10/21/21 13:00 General appearance: Present: mild distress - EENT Eyes: Present: PERRL, EOM intact - Neck Neck: Absent: masses or JVD, cervical LAD - Respiratory Respiratory effort: normal Respiratory: bilateral: diminished - Cardiovascular Rhythm: regular Heart Sounds: Present: S1 & S2. Absent: systolic murmur, diastolic murmur - Extremities Extremities: no ischemia, pulses intact, pulses symmetrical, No edema, normal temperature, normal color Peripheral Pulses: within normal limits - Abdominal General gastrointestinal: soft, non-tender, non-distended, normal bowel sounds - Integumentary Integumentary: Present: warm, dry - Psychiatric Psychiatric: other (sedated) - Neurologic Neurologic: other (sedated, bilateral wrist restriants in place) - Allied Health Allied health notes reviewed: nursing, RT Results - Labs CBC & Chem 7: 10/21/21 15:23 10/21/21 04:44 Labs: Laboratory Last Values WBC 6.7 K/mm3 (4.5-11.0) 10/21/21 04:44 RBC 2.63 M/mm3 (3.65-5.03) L 10/21/21 04:44 Hgb 6.9 gm/dl (11.8-15.2) L 10/21/21 04:44 Hct 21.7 % (35.5-45.6) L 10/21/21 04:44 MCV 83 fl (84-94) L 10/21/21 04:44 MCH 26 pg (28-32) L 10/21/21 04:44 MCHC 32 % (32-34) 10/21/21 04:44 RDW 22.7 % (13.2-15.2) H 10/21/21 04:44 Plt Count 490 K/mm3 (140-440) H 10/21/21 04:44 Lymph % (Auto) 7.0 % (13.4-35.0) L 10/21/21 04:44 [place] % (Auto) 9.2 % (0.0-7.3) H 10/21/21 04:44 Eos % (Auto) 0.6 % (0.0-4.3) 10/21/21 04:44 Baso % (Auto) 0.8 % (0.0-1.8) 10/21/21 04:44 Lymph # (Auto) 0.5 K/mm3 (1.2-5.4) L 10/21/21 04:44 [place] # (Auto) 0.6 K/mm3 (0.0-0.8) 10/21/21 04:44 Eos # (Auto) 0.0 K/mm3 (0.0-0.4) 10/21/21 04:44 Baso # (Auto) 0.1 K/mm3 (0.0-0.1) 10/21/21 04:44 Seg Neutrophils % 82.4 % (40.0-70.0) H 10/21/21 04:44 Seg Neutrophils # 5.5 K/mm3 (1.8-7.7) 10/21/21 04:44 APTT 41.4 Sec. (24.2-36.6) H 10/20/21 21:03 ABG pH 7.411 pH Units (7.350-7.450) 10/21/21 04:44 ABG pCO2 30.7 mm Hg 10/21/21 04:44 ABG pO2 94.2 mm Hg (80.0-90.0) H 10/21/21 04:44 ABG HCO3 19.1 mmol/L (20.0-26.0) L 10/21/21 04:44 ABG O2 Saturation 97.5 % (95.0-99.0) 10/21/21 04:44 ABG O2 Content 9.1 (0.0-44) 10/21/21 04:44 ABG Base Excess -5.0 mmol/L (-2.0-3.0) L 10/21/21 04:44 ABG Hemoglobin 6.6 gm/dl (14.0-18.0) L 10/21/21 04:44 ABG Carboxyhemoglobin 1.4 % (0.0-5.0) 10/21/21 04:44 ABG Methemoglobin 0.5 % (0.0-1.5) 10/21/21 04:44 Oxyhemoglobin 95.6 % (95.0-99.0) 10/21/21 04:44 FiO2 60 % 10/21/21 04:44 Sodium 138 mmol/L (137-145) 10/21/21 04:44 Potassium 5.0 mmol/L (3.6-5.0) 10/21/21 04:44 Chloride 105.7 mmol/L (98-107) 10/21/21 04:44 Carbon Dioxide 17 mmol/L (22-30) L 10/21/21 04:44 Anion Gap 20 mmol/L 10/21/21 04:44 BUN 18 mg/dL (9-20) 10/21/21 04:44 Creatinine 0.6 mg/dL (0.8-1.3) L 10/21/21 04:44 Estimated GFR > 60 ml/min 10/21/21 04:44 BUN/Creatinine Ratio 30 % 10/21/21 04:44 Glucose 96 mg/dL (75-100) 10/21/21 04:44 Lactic Acid 4.10 mmol/L (0.7-2.0) H* 10/21/21 07:37 Calcium 7.6 mg/dL (8.4-10.2) L 10/21/21 04:44 Total Bilirubin 0.90 mg/dL (0.1-1.2) 10/20/21 21:03 AST 70 units/L (5-40) H 10/20/21 21:03 ALT 7 units/L (7-56) 10/20/21 21:03 Alkaline Phosphatase 1174 units/L (35-129) H 10/20/21 21:03 Total Protein 5.1 g/dL (6.3-8.2) L 10/20/21 21:03 Albumin 2.3 g/dL (3.9-5) L 10/20/21 21:03 Albumin/Globulin Ratio 0.8 % 10/20/21 21:03 Urine Color Lala (Yellow) 10/20/21 Unknown Urine Turbidity Clear (Clear) 10/20/21 Unknown Urine pH 5.0 (5.0-7.0) 10/20/21 Unknown Ur Specific [place] 1.035 (1.003-1.030) H 10/20/21 Unknown Urine Protein 30 mg/dl mg/dL (Negative) 10/20/21 Unknown Urine Glucose (UA) Neg mg/dL (Negative) 10/20/21 Unknown Urine Ketones Neg mg/dL (Negative) 10/20/21 Unknown Urine Blood Neg (Negative) 10/20/21 Unknown Urine Nitrite Neg (Negative) 10/20/21 Unknown Ur Reducing Substances Not Reportable 10/20/21 Unknown Urine Bilirubin Neg (Negative) 10/20/21 Unknown Urine Ictotest Not Reportable 10/20/21 Unknown Urine Urobilinogen < 2.0 mg/dL (<2.0) 10/20/21 Unknown Ur Leukocyte Esterase Negative (Negative) 10/20/21 Unknown Urine WBC (Auto) 2.0 /HPF (0.0-6.0) 10/20/21 Unknown Urine RBC (Auto) < 1.0 /HPF (0.0-6.0) 10/20/21 Unknown Urine Mucus Few /HPF 10/20/21 Unknown Blood Type A POSITIVE 10/21/21 07:37 Antibody Screen Negative 10/21/21 07:37 Crossmatch See Detail 10/21/21 07:37 Microbiology: Microbiology 10/20/21 22:30 Tracheal Aspirate Sputum Culture - Preliminary 10/20/21 21:03 Peripheral/Venous Blood Culture - Preliminary Culture in Progress 10/20/21 21:03 Peripheral/Venous Blood Culture - Preliminary Culture in Progress Duran/IV: Voiding Method Indwelling Catheter Active Medications - Current Medications Current Medications: Generic Name Dose Route Start Last Admin Trade Name Freq PRN Reason Stop Dose Admin Acetaminophen 650 mg 10/20/21 23:57 Acetaminophen 325 Mg Tab PO Q4H PRN Pain MILD(1-3)/Fever >100.5/RIVAS Acetaminophen 650 mg 10/21/21 10:09 10/21/21 10:26 Acetaminophen 650 Mg Rect Supp NV 650 mg Q4H PRN Administration Pain, Mild (1-3) Albuterol 2.5 mg 10/20/21 23:57 Albuterol 2.5 Mg/3 Ml Nebu IH Q3HRT PRN Shortness Of Breath Albuterol/Ipratropium 1 ampul 10/21/21 02:00 10/21/21 14:46 Ipratropium/Albuterol Sulfate 3 Ml Ampul.Neb IH 1 ampul Q6HRT [place] Administration Dextrose 0 ml 10/21/21 15:11 Dextrose 10% *Hypoglycemia IV PRN PRN Hypoglycemia Famotidine 20 mg 10/21/21 10:00 10/21/21 10:26 Famotidine 20 Mg/2 Ml Inj IV 20 mg BID [place] Administration Fentanyl 50 mcg 10/20/21 20:44 10/20/21 22:01 Fentanyl 100 Mcg/2 Ml Inj IV 50 mcg Q10MIN PRN Administration ANALGESIA Heparin Sodium (Porcine) 5,000 unit 10/21/21 10:00 10/21/21 10:26 Heparin 5,000 Unit/1 Ml Vial SUB-Q 5,000 unit Q12HR [place] Administration Hydromorphone HCl 0.5 mg 10/20/21 23:57 Hydromorphone 1 Mg/1 Ml Inj IV Q3H PRN Pain , Severe (7-10) Fentanyl Citrate 2,000 mcg in 100 mls @ 8.765 mls/hr 10/20/21 21:00 10/21/21 13:05 Fentanyl Drip Premix IV 2 mcg/kg/hr TITR [place] 17.53 mls/hr Administration Protocol 1 MCG/KG/HR Dextrose/Sodium Chloride 1,000 mls @ 100 mls/hr 10/20/21 23:45 10/21/21 04:32 D5/0.45ns IV 100 mls/hr DIRECT [place] Administration Cefepime HCl 1 gm in 100 mls @ 200 mls/hr 10/21/21 08:00 10/21/21 07:50 Cefepime/Ns 1 Gm/100 Ml IV 200 mls/hr Q8H [place] Administration Protocol Vancomycin HCl 1,250 mg/ 275 mls @ 166.667 mls/hr 10/21/21 10:00 10/21/21 13:06 Sodium Chloride IV 166.667 mls/hr Q12H [place] Administration Sodium Chloride 500 mls @ 0 mls/hr 10/21/21 08:00 10/21/21 10:27 Nacl 0.9% 500 Ml IV 10/21/21 18:00 42 mls/hr ONCE@0800 [place] Administration As Directed Lactated Ringer's 1,000 mls @ 999 mls/hr 10/21/21 15:00 Lactated Ringers IV 10/21/21 16:00 BOLUS ONE Insulin Human Regular 0 units 10/21/21 16:00 Insulin Regular, Human 100 Units/1 Ml SUB-Q Q6H [facility] Protocol Morphine Sulfate 2 mg 10/20/21 23:57 Morphine 2 Mg/1 Ml Inj IV Q4H PRN Pain, Moderate (4-6) Ondansetron HCl 4 mg 10/20/21 23:57 Ondansetron 4 Mg/2 Ml Inj IV Q8H PRN Nausea And Vomiting Sodium Chloride 10 ml 10/21/21 10:00 10/21/21 13:06 Sodium Chloride 0.9% 10 Ml Flush Syringe IV 10 ml BID [place] Administration Sodium Chloride 10 ml 10/20/21 23:57 Sodium Chloride 0.9% 10 Ml Flush Syringe IV PRN PRN LINE FLUSH
[2021-10-21 15:39] LABS: Basophils % (Auto) 0.4 % (0.0-1.8); Eosinophils # (Auto) 0.1 K/mm3 (0.0-0.4); Hematocrit 20.9 % (35.5-45.6); Hemoglobin 6.8 gm/dl (11.8-15.2); Lymphocytes # (Auto) 0.5 K/mm3 (1.2-5.4); Lymphocytes % (Auto) 7.1 % (13.4-35.0); Mean Corpuscular HGB Conc 33 % (32-34); Mean Corpuscular Volume 83 fl (84-94); Monocytes # (Auto) 0.5 K/mm3 (0.0-0.8); Monocytes % (Auto) 6.5 % (0.0-7.3); Platelet Count 422 K/mm3 (140-440); Red Blood Count 2.51 M/mm3 (3.65-5.03); Red Cell Distribution Width 21.6 % (13.2-15.2)
--- NOTE | 2021-10-21 17:36 | Cat Scan Report ---
CT NECK 10/21/2021 HISTORY: Concern for tracheal stenosis. FINDINGS: Unenhanced CT images of the soft tissues of the neck were obtained. Images are evaluated in the axial, coronal, and sagittal plane. Patient has a tracheostomy tube in place. Above this level, the trachea and airway is completely occl uded are coapted. Soft tissue thickening is seen surrounding the tracheostomy tube into the subglotti c region. It is unclear whether this represents inflammatory or neoplastic soft tissue. Extensive osseous metastases are present throughout all visible skeletal structures. This includes an expansile lesion of the right clavicular head. There is evidence of a moderate left pleural effusion and small right pleural effusion. IMPRESSION: Soft tissue thickening in the supraglottic trachea above the tracheostomy level, with soft tissue thi ckening surrounding the upper tracheal endotracheal tube. Diffuse osseous metastasis. Bilateral pleural effusion, left greater than right All CT scans at this location are performed using dose reduction to ALARA by means of automated expos ure control. Signer Name: Alexei Lai MD Signed: 10/21/2021 5:32 PM Workstation Name: [id number]
[2021-10-21] MEDS: INSULIN REGULAR, HUMAN 100 UNITS/1 ML SUB-Q SCH (19:09)
[2021-10-21] MEDS ORDERED: dilTIAZem 25 MG/5 ML INJ IV ONE (21:48)
[2021-10-21] MEDS: HYDROmorphone 1 MG/1 ML INJ IV PRN (23:52)
[2021-10-22] MEDS: CEFEPIME/NS 1 GM/100 ML 1 GM/100 ML BAG IV SCH ×3 (00:55→16:25)
[2021-10-22] MEDS: D5W/0.45% NACL 1,000 ML IV SCH ×3 (00:55→22:38)
[2021-10-22] MEDS ORDERED: SODIUM CHLORIDE 0.9% 1000 ML 1,000 ML IV ONE ×2 (02:29→08:30)
[2021-10-22] MEDS: IPRATROPIUM/ALBUTEROL SULFATE 3 ML AMPUL.NEB IH SCH ×4 (02:47→20:10)
[2021-10-22 04:51] LABS: Hematocrit 23.3 % (35.5-45.6); Hemoglobin 7.4 gm/dl (11.8-15.2); Mean Corpuscular HGB Conc 32 % (32-34); Mean Corpuscular Volume 84 fl (84-94); Platelet Count 413 K/mm3 (140-440); Red Blood Count 2.76 M/mm3 (3.65-5.03)
[2021-10-22 05:14] LABS: Blood Urea Nitrogen 15 mg/dL (9-20); Calcium 7.5 mg/dL (8.4-10.2); Hemolysis Index 0
[2021-10-22 05:16] LABS: BUN/Creatinine Ratio 30
[2021-10-22] MEDS: DEXTROSE 10% *Hypoglycemia IV PRN (05:16)
[2021-10-22 05:19] LABS: ABG Base Excess -5.8 mmol/L (-2.0-3.0); ABG HCO3 19.5 mmol/L (20.0-26.0); ABG Methemoglobin 0.6 % (0.0-1.5); ABG Oxygen Saturation 97.2 % (95.0-99.0); ABG PCO2 37.2 mm Hg; ABG PH 7.337 pH Units (7.350-7.450); ABG PO2 94.2 mm Hg (80.0-90.0)
[2021-10-22] MEDS: fentaNYL DRIP Premix 2,000 MCG/100 ML BAG IV SCH ×4 (06:44→22:27)
[2021-10-22] MEDS ORDERED: SODIUM CHLORIDE 0.9% 1000 ML 1,000 ML ONE (06:45)
--- NOTE | 2021-10-22 08:10 | Electrocardiograph Report ---
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
--- NOTE | 2021-10-22 08:38 | Progress Note ---
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, chronic respiratory failure s/p trach, sacral stenosis, HTN, SVT admitted with dislodgment of tracheostomy Neuro: h/o chronic pain -Sedated with fentanyl -RASS goal 0 to -1 -Avoid delirium -Reorientation as needed -Maintain sleep-wake cycle -As needed analgesia -Bilateral restraints for safety Cardiac: ST, h/o SVT, HTN -Cardiology consulted, appreciate recommendations -Blood pressure monitoring per protocol -We will give LR boluses and reassess -Given two bolus so far -Of note patient home meds include metoprolol 50mg BID -BP soft->with holding IV BB for now Respiratory: Chronic respiratory failure, h/o tracheal stenosis, vocal cord paralysis -[facility] consulted, appreciate recommendations -Intubated with a 6.0 ETT and tracheostomy tube on 10/20 in the ED -A.m. vent settings: Assist-control/PRVC tidal volume 500, rate 18, PEEP 6, FiO2 60% -See RT notes for titration -A.m. ABG noted -VAP bundle -SPO2 monitoring -CT neck pending GI: Protein calorie malnutrition, elevated alkaline phos and AST -24 hours -523 mL -PPI -MIVF while n.p.o. -Trend LFTs : Metabolic acidosis -Strict intake and output -Renally dose medications -Avoid nephrotoxic medications -Daily weights ID: Lactic acidosis, ? PNA, Sepsis -meets criteria with LA, tachycardia, possible pna on imaging -Infectious disease consulted, appreciate recommendation -Antibiotic therapy with cefepime, vancomycin -Follow-up blood culture -Monitor WBC and temperature curve Endo: NAD -Avoid hypoglycemia -SSI -Accu-Cheks q. 6 Heme: Anemia, h/o anemia of chronic disease -Trend CBC -Transfuse hemoglobin less than 7 -h/h 6.9/21.7 -1 unit prbc -repeat hbg 6.8 -1 unit prbc -Monitor for signs of bleeding -SCDs to BLE while in bed -heparin subq The high probability of a clinically significant, sudden or life threatening deterioration of the [multi] system(s) required my full and direct attention, intervention and personal management. The aggregate critical care time was [60] minutes. This time is in addition to time spent performing reported procedures but includes the following: [x] Data Review and interpretation [x] Patient assessment and monitoring of vital signs [x] Documentation [x] Medication orders and management Disposition Plan: icu Total Time Spent with Patient (Minutes): 60 History Interval history: This is 66 year old male with Prostate CA with mets to spine s/p radiaiton therapy, chronic resp failure s/p trach (2018), trachal stenosis, HTN, h/o SVT, COVID 19 (06/2021) with moderna vaccine x2, anemia and chronic pain who presented to the ED on 10/20 from his [place] [facility] after tracheostomy dislodgement and inability to replace trach via EMS on 15 L [place]. In the ED 6.0 OETT was inserted into his tracheostomy and sutured into place. Work-up in the emergency department revealed lactic acidosis, tachycardia. Patient was admitted to the hospitalist service with consults to [facility] and general surgery patient was admitted to the hospital service Hospital course to date: 10/21: Code status changed to DNR, POA brought Living will which is in the chart along with records from [place] [facility]. LR bolus for tachycardia. Upon review of medical records it was noted that patient was on beta-giovanni. No p.o. access currently. Withholding IV beta-giovanni initiation due to low blood pressure. We will continue antibiotics due to concerning imaging. Neck CT pending. 10/22: Ct neck results noted. Supraglottic stenosis noted as well as diffuse metatatic disease c/w history of prostate ca. Surgical and PCCM perspective noted. Unfortunately, will likely need ENT services if POA decides be aggressive with tracheal stenosis which we do not have in house. Will need to discuss with POA re: GOC and how aggressive they would like to be. Hgb drop noted this AM, transfused one unit. Hospitalist Physical - Physical exam Narrative exam: General appearance: Present: mild distress - EENT Eyes: Present: PERRL, EOM intact - Neck Neck: Absent: masses or JVD, cervical LAD - Respiratory Respiratory effort: normal Respiratory: bilateral: diminished - Cardiovascular Rhythm: regular Heart Sounds: Present: S1 & S2. Absent: systolic murmur, diastolic murmur - Extremities Extremities: no ischemia, pulses intact, pulses symmetrical, No edema, normal temperature, normal color Peripheral Pulses: within normal limits - Abdominal General gastrointestinal: soft, non-tender, non-distended, normal bowel sounds - Integumentary Integumentary: Present: warm, dry - Psychiatric Psychiatric: other (sedated) - Neurologic Neurologic: other (sedated, bilateral wrist restriants in place) - Allied Health Allied health notes reviewed: nursing, RT - Constitutional Vitals: Temp Pulse Resp BP Pulse Ox 102 F H 174 H 16 88/36 99 10/22/21 03:22 10/22/21 06:01 10/22/21 06:01 10/22/21 06:01 10/22/21 06:01 General appearance: Present: mild distress Results - Labs CBC & Chem 7: 10/22/21 04:24 10/22/21 04:24 Labs: Laboratory Last Values WBC 8.7 K/mm3 (4.5-11.0) 10/22/21 04:24 RBC 2.76 M/mm3 (3.65-5.03) L 10/22/21 04:24 Hgb 7.4 gm/dl (11.8-15.2) L 10/22/21 04:24 Hct 23.3 % (35.5-45.6) L 10/22/21 04:24 MCV 84 fl (84-94) 10/22/21 04:24 MCH 27 pg (28-32) L 10/22/21 04:24 MCHC 32 % (32-34) 10/22/21 04:24 RDW 22.0 % (13.2-15.2) H 10/22/21 04:24 Plt Count 413 K/mm3 (140-440) 10/22/21 04:24 Lymph % (Auto) 7.1 % (13.4-35.0) L 10/21/21 15:23 [place] % (Auto) 6.5 % (0.0-7.3) 10/21/21 15:23 Eos % (Auto) 2.0 % (0.0-4.3) 10/21/21 15:23 Baso % (Auto) 0.4 % (0.0-1.8) 10/21/21 15:23 Lymph # (Auto) 0.5 K/mm3 (1.2-5.4) L 10/21/21 15:23 [place] # (Auto) 0.5 K/mm3 (0.0-0.8) 10/21/21 15:23 Eos # (Auto) 0.1 K/mm3 (0.0-0.4) 10/21/21 15:23 Baso # (Auto) 0.0 K/mm3 (0.0-0.1) 10/21/21 15:23 Seg Neutrophils % 84.0 % (40.0-70.0) H 10/21/21 15: Seg Neutrophils # 6.1 K/mm3 (1.8-7.7) 10/21/21 15:23 APTT 41.4 Sec. (24.2-36.6) H 10/20/21 21:03 ABG pH 7.337 pH Units (7.350-7.450) L 10/22/21 04:15 ABG pCO2 37.2 mm Hg 10/22/21 04:15 ABG pO2 94.2 mm Hg (80.0-90.0) H 10/22/21 04:15 ABG HCO3 19.5 mmol/L (20.0-26.0) L 10/22/21 04:15 ABG O2 Saturation 97.2 % (95.0-99.0) 10/22/21 04:15 ABG O2 Content 9.9 (0.0-44) 10/22/21 04:15 ABG Base Excess -5.8 mmol/L (-2.0-3.0) L 10/22/21 04:15 ABG Hemoglobin 7.2 gm/dl (14.0-18.0) L 10/22/21 04:15 ABG Carboxyhemoglobin 1.4 % (0.0-5.0) 10/22/21 04:15 ABG Methemoglobin 0.6 % (0.0-1.5) 10/22/21 04:15 Oxyhemoglobin 95.3 % (95.0-99.0) 10/22/21 04:15 FiO2 45 % 10/22/21 04:15 Sodium 137 mmol/L (137-145) 10/22/21 04:24 Potassium 4.2 mmol/L (3.6-5.0) 10/22/21 04:24 Chloride 109.2 mmol/L (98-107) H 10/22/21 04:24 Carbon Dioxide 18 mmol/L (22-30) L 10/22/21 04:24 Anion Gap 14 mmol/L 10/22/21 04:24 BUN 15 mg/dL (9-20) 10/22/21 04:24 Creatinine 0.5 mg/dL (0.8-1.3) L 10/22/21 04:24 Estimated GFR > 60 ml/min 10/22/21 04:24 BUN/Creatinine Ratio 30 % 10/22/21 04:24 Glucose 77 mg/dL (75-100) 10/22/21 04:24 POC Glucose 81 mg/dL (70-105) 10/21/21 16:38 Lactic Acid 2.40 mmol/L (0.7-2.0) H* 10/21/21 15:11 Calcium 7.5 mg/dL (8.4-10.2) L 10/22/21 04:24 Phosphorus 3.00 mg/dL (2.5-4.5) 10/22/21 04:24 Magnesium 1.80 mg/dL (1.7-2.3) 10/22/21 04:24 Total Bilirubin 0.90 mg/dL (0.1-1.2) 10/20/21 21:03 AST 70 units/L (5-40) H 10/20/21 21:03 ALT 7 units/L (7-56) 10/20/21 21:03 Alkaline Phosphatase 1174 units/L (35-129) H 10/20/21 21:03 Total Protein 5.1 g/dL (6.3-8.2) L 10/20/21 21:03 Albumin 2.3 g/dL (3.9-5) L 10/20/21 21:03 Albumin/Globulin Ratio 0.8 % 10/20/21 21:03 Urine Color [place] (Yellow) 10/20/21 Unknown Urine Turbidity Clear (Clear) 10/20/21 Unknown Urine pH 5.0 (5.0-7.0) 10/20/21 Unknown Ur Specific [place] 1.035 (1.003-1.030) H 10/20/21 Unknown Urine Protein 30 mg/dl mg/dL (Negative) 10/20/21 Unknown Urine Glucose (UA) Neg mg/dL (Negative) 10/20/21 Unknown Urine Ketones Neg mg/dL (Negative) 10/20/21 Unknown Urine Blood Neg (Negative) 10/20/21 Unknown Urine Nitrite Neg (Negative) 10/20/21 Unknown Ur Reducing Substances Not Reportable 10/20/21 Unknown Urine Bilirubin Neg (Negative) 10/20/21 Unknown Urine Ictotest Not Reportable 10/20/21 Unknown Urine Urobilinogen < 2.0 mg/dL (<2.0) 10/20/21 Unknown Ur Leukocyte Esterase Negative (Negative) 10/20/21 Unknown Urine WBC (Auto) 2.0 /HPF (0.0-6.0) 10/20/21 Unknown Urine RBC (Auto) < 1.0 /HPF (0.0-6.0) 10/20/21 Unknown Urine Mucus Few /HPF 10/20/21 Unknown Blood Type A POSITIVE 10/21/21 07:37 Antibody Screen Negative 10/21/21 07:37 Crossmatch See Detail 10/21/21 07:37 Microbiology: Microbiology 10/20/21 21:03 Peripheral/Venous Blood Culture - Preliminary NO GROWTH AFTER 24 HOURS 10/20/21 21:03 Peripheral/Venous Blood Culture - Preliminary NO GROWTH AFTER 24 HOURS 10/20/21 22:30 Tracheal Aspirate Sputum Culture - Preliminary [place]/IV: Voiding Method Indwelling Catheter Active Medications - Current Medications Current Medications: Generic Name Dose Route Start Last Admin Trade Name Freq PRN Reason Stop Dose Admin Acetaminophen 650 mg 10/20/21 23:57 10/21/21 16:01 Acetaminophen 325 Mg Tab PO 650 mg Q4H PRN Administration Pain MILD(1-3)/Fever >100.5/RIVAS Acetaminophen 650 mg 10/21/21 10:09 10/21/21 23:44 Acetaminophen 650 Mg Rect Supp NV 650 mg Q4H PRN Administration Pain, Mild (1-3) Albuterol 2.5 mg 10/20/21 23:57 Albuterol 2.5 Mg/3 Ml Nebu IH Q3HRT PRN Shortness Of Breath Albuterol/Ipratropium 1 ampul 10/21/21 02:00 10/22/21 02:47 Ipratropium/Albuterol Sulfate 3 Ml Ampul.Neb IH Not Given Q6HRT [place] Dextrose 0 ml 10/21/21 15:11 10/22/21 05:16 Dextrose 10% *Hypoglycemia IV 250 ml PRN PRN Administration Hypoglycemia Famotidine 20 mg 10/21/21 10:00 10/21/21 21:51 Famotidine 20 Mg/2 Ml Inj IV 20 mg BID [place] Administration Fentanyl 50 mcg 10/20/21 20:44 10/20/21 22:01 Fentanyl 100 Mcg/2 Ml Inj IV 50 mcg Q10MIN PRN Administration ANALGESIA Heparin Sodium (Porcine) 5,000 unit 10/21/21 10:00 10/21/21 21:51 Heparin 5,000 Unit/1 Ml Vial SUB-Q 5,000 unit Q12HR [place] Administration Hydromorphone HCl 0.5 mg 10/20/21 23:57 10/21/21 23:52 Hydromorphone 1 Mg/1 Ml Inj IV 0.5 mg Q3H PRN Administration Pain , Severe (7-10) Fentanyl Citrate 2,000 mcg in 100 mls @ 8.765 mls/hr 10/20/21 21:00 10/22/21 07:56 Fentanyl Drip Premix IV 2 mcg/kg/hr TITR [place] 17.53 mls/hr Titration Protocol 1 MCG/KG/HR Dextrose/Sodium Chloride 1,000 mls @ 100 mls/hr 10/20/21 23:45 10/22/21 00:55 D5/0.45ns IV 100 mls/hr DIRECT [place] Administration Cefepime HCl 1 gm in 100 mls @ 200 mls/hr 10/21/21 08:00 10/22/21 00:55 Cefepime/Ns 1 Gm/100 Ml IV 200 mls/hr Q8H [place] Administration Protocol Vancomycin HCl 1,250 mg/ 275 mls @ 166.667 mls/hr 10/21/21 10:00 10/21/21 23:33 Sodium Chloride IV 166.667 mls/hr Q12H [place] Administration Sodium Chloride 500 mls @ 0 mls/hr 10/21/21 16:25 Nacl 0.9% 500 Ml IV ONCE [place] As Directed Sodium Chloride 1,000 mls @ 999 mls/hr 10/22/21 08:30 Nacl 0.9% 1000 Ml IV 10/22/21 09:30 BOLUS ONE Insulin Human Regular 0 units 10/21/21 16:00 10/21/21 19:09 Insulin Regular, Human 100 Units/1 Ml SUB-Q Not Given Q6H [place] Protocol Morphine Sulfate 2 mg 10/20/21 23:57 Morphine 2 Mg/1 Ml Inj IV Q4H PRN Pain, Moderate (4-6) Ondansetron HCl 4 mg 10/20/21 23:57 Ondansetron 4 Mg/2 Ml Inj IV Q8H PRN Nausea And Vomiting Sodium Chloride 10 ml 10/21/21 10:00 10/21/21 21:56 Sodium Chloride 0.9% 10 Ml Flush Syringe IV 10 ml BID [place] Administration Sodium Chloride 10 ml 10/20/21 23:57 Sodium Chloride 0.9% 10 Ml Flush Syringe IV PRN PRN LINE FLUSH Nutrition/Malnutrition Assess - Dietary Evaluation Nutrition/Malnutrition Findings: Nutrition Notes Start: 10/21/21 17:22 Freq: Status: Active Protocol: Document 10/21/21 17:22 FELECIA (Rec: 10/21/21 17:35 FELECIA [id number]) Nutrition Notes Need for Assessment generated from: MD Order Initial or Follow up Brief Note Current Diagnosis Sepsis,Respiratory Failure Other Pertinent Diagnosis Tracheostomy malfunction, Anemia, Metastatic Cancer, Weakness. Current Diet NPO (since 10/20 23:58). Height 5 ft 10 in Weight 80 kg [place] Body Weight (kg) 75.45 BMI 25.2 Intake Prior to Admission Good Weight change and time frame POt denies having loss body weight [place]. Weight Status Appropriate Subjective/Other Information RD consult for evaluation of nutritional intake. Pt is currently on NPO, evaluation of nutritional intake cannot be performed. Will assess at F/U. Pt on mechanical ventilation through tracheostomy. Percent of energy/protein needs met: Pt currently on NPO. Nutrition Intervention Follow-Up By: 10/28/21 Additional Comments When pertinent, start monitoring food tolerance, %PO intake of meals, and BM.
--- NOTE | 2021-10-22 09:44 | XRay Report ---
CHEST 1 VIEW INDICATION: follow up respiratory failure. COMPARISON: Yesterday FINDINGS: Support devices: Stable Heart: Within normal limits. Lungs/Pleura: Bilateral lung opacities appear slightly increased since yesterday's exam, more so on t he left lung. No pleural effusion or pneumothorax is identified. Additional findings: Extensive bony metastases are again noted. IMPRESSION: Mild interval increase in the bilateral lung opacities. Signer Name: Marlon Mckeon Jr, MD Signed: 10/22/2021 9:40 AM Workstation Name: [id number]
[2021-10-22] MEDS: HEPARIN 5,000 UNIT/1 ML VIAL SUB-Q SCH ×2 (09:46→21:25)
[2021-10-22] MEDS: FAMOTIDINE 20 MG/2 ML INJ IV SCH ×2 (09:46→21:24)
[2021-10-22] MEDS: ACETAMINOPHEN 650 MG RECT SUPP PR PRN (09:47)
[2021-10-22] MEDS: VANCOMYCIN 1,250 MG in SODIUM CHLORIDE 0.9% 250ML 250 ML IV SCH ×2 (10:00→22:37)
[2021-10-22] MEDS: INSULIN REGULAR, HUMAN 100 UNITS/1 ML SUB-Q SCH ×3 (10:00→19:49)
--- NOTE | 2021-10-22 11:05 | Progress Note ---
Assessment and Plan 66 y/o male with chronic respiratory failure, admitted with dislodgement of trach. 10/22/21: Patient with completely occluded airway proxmial/caudal to the 6.0 ET tube going through stoma. Per surgery here, they are not able to place trach and suggest transfer. I am considering calling his POA and discussing comfort measures given this patient has metastatic cancer and because this was not done with contrast, rads states they cannot tell exactly what type if tissue is occluding airway but they are concerned for tumor vs some inflammatory tissue. I personally do no think another institution with ENT or Thoracic would accept this patient knowing his overall prognosis. Continue supportive measures for now. Called the Rehab/correction doc who looked up patient. He came from the [place] and apparently has tracheal stenosis with vocal cord paralysis and there was no plan to remove this trach. I have spoken with general surgery about this as well. Will do the followin. Attempt to obtain records from [place], especially regarding the tracheal stenosis and the level of stenosis. 2. Will obtain CT of neck here, noncontrast to see if we can evaluate the level 3. Consider attempting to transfer back to [place] if gen surge not able to help with airway or to an institution that has ENT care 4. Tachycardia is sinus. Patient is in pain but likely is volume deplete as well. He has gotten one unit of blood and will give several boluses of fluids now and reassess as tolerated. 5. Anemia, likely from chronic disease. Agree with transfusion but would have given 2 units. 6. Pain control 7. Guarded prognosis. CCT 31 minutes. Subjective Date of service: 10/22/21 Interval history: No acute events. CT of neck done showing complete occlusion proximal/caudal airway. Spoke general surgery this am and they are not able to obtain trach given this situation and have recommended transfer for ENT vs Thoracic, vs both. Objective Vital Signs - 12hr 10/21/21 10/21/21 10/21/21 23:10 23:20 23:30 Temperature Pulse Rate 117 H 118 H 122 H Pulse Rate [ Bilateral Throughout] Pulse Rate [ Radial] Pulse Rate [ Right Dorsalis Pedis] Respiratory 13 18 16 Rate Respiratory Rate [Bilateral Throughout] Blood Pressure 93/64 93/64 96/61 O2 Sat by Pulse 100 100 100 Oximetry 10/21/21 10/21/21 10/21/21 23:40 23:50 23:56 Temperature 102.8 F H Pulse Rate 126 H 126 H Pulse Rate [ Bilateral Throughout] Pulse Rate [ Radial] Pulse Rate [ Right Dorsalis Pedis] Respiratory 16 11 L Rate Respiratory Rate [Bilateral Throughout] Blood Pressure 96/61 96/61 O2 Sat by Pulse 100 94 Oximetry 10/22/21 10/22/21 10/22/21 00:00 00:10 00:20 Temperature Pulse Rate 129 H 122 H 120 H Pulse Rate [ Bilateral Throughout] Pulse Rate [ Radial] Pulse Rate [ 123 H Right Dorsalis Pedis] Respiratory 6 L 17 8 L Rate Respiratory Rate [Bilateral Throughout] Blood Pressure 94/46 94/46 94/46 O2 Sat by Pulse 100 100 100 Oximetry 10/22/21 10/22/21 10/22/21 00:30 00:41 00:51 Temperature Pulse Rate 120 H 124 H 149 H Pulse Rate [ Bilateral Throughout] Pulse Rate [ Radial] Pulse Rate [ Right Dorsalis Pedis] Respiratory 6 L 10 L 8 L Rate Respiratory Rate [Bilateral Throughout] Blood Pressure 78/46 94/46 81/44 O2 Sat by Pulse 100 99 100 Oximetry 10/22/21 10/22/21 10/22/21 01:00 01:11 01:21 Temperature Pulse Rate 124 H 117 H 122 H Pulse Rate [ Bilateral Throughout] Pulse Rate [ Radial] Pulse Rate [ Right Dorsalis Pedis] Respiratory 16 9 L 11 L Rate Respiratory Rate [Bilateral Throughout] Blood Pressure 77/45 77/45 77/45 O2 Sat by Pulse 100 100 100 Oximetry 10/22/21 10/22/21 10/22/21 01:25 01:31 01:33 Temperature Pulse Rate 178 H 152 H Pulse Rate [ Bilateral Throughout] Pulse Rate [ 123 H Radial] Pulse Rate [ Right Dorsalis Pedis] Respiratory 13 18 Rate Respiratory Rate [Bilateral Throughout] Blood Pressure 108/68 108/58 108/58 O2 Sat by Pulse 99 100 Oximetry 10/22/21 10/22/21 10/22/21 01:41 01:51 02:00 Temperature Pulse Rate 150 H 122 H 118 H Pulse Rate [ Bilateral Throughout] Pulse Rate [ Radial] Pulse Rate [ Right Dorsalis Pedis] Respiratory 7 L 13 6 L Rate Respiratory Rate [Bilateral Throughout] Blood Pressure 108/58 108/58 95/52 O2 Sat by Pulse 99 100 100 Oximetry 10/22/21 10/22/2110/22/22 02:11 02:21 02:30 Temperature Pulse Rate 120 H 180 H 180 H Pulse Rate [ Bilateral Throughout] Pulse Rate [ Radial] Pulse Rate [ Right Dorsalis Pedis] Respiratory 5 L 15 13 Rate Respiratory Rate [Bilateral Throughout] Blood Pressure 95/52 95/52 92/51 O2 Sat by Pulse 99 97 99 Oximetry 10/22/21 10/22/21 10/22/21 02:40 02:51 03:00 Temperature Pulse Rate 178 H 122 H 127 H Pulse Rate [ Bilateral Throughout] Pulse Rate [ Radial] Pulse Rate [ Right Dorsalis Pedis] Respiratory 11 L 16 7 L Rate Respiratory Rate [Bilateral Throughout] Blood Pressure 108/51 103/60 92/55 O2 Sat by Pulse 98 97 99 Oximetry 10/22/21 10/22/21 10/22/21 03:11 03:20 03:22 Temperature 102 F H Pulse Rate 129 H 121 H Pulse Rate [ Bilateral Throughout] Pulse Rate [ Radial] Pulse Rate [ Right Dorsalis Pedis] Respiratory 9 L 9 L Rate Respiratory Rate [Bilateral Throughout] Blood Pressure 92/55 104/56 O2 Sat by Pulse 100 99 Oximetry 10/22/21 10/22/21 10/22/21 03:30 03:41 03:51 Temperature Pulse Rate 126 H 120 H 119 H Pulse Rate [ Bilateral Throughout] Pulse Rate [ Radial] Pulse Rate [ Right Dorsalis Pedis] Respiratory 6 L 0 L 8 L Rate Respiratory Rate [Bilateral Throughout] Blood Pressure 88/49 88/49 88/49 O2 Sat by Pulse 100 100 100 Oximetry 10/22/21 10/22/21 10/22/21 04:00 04:11 04:21 Temperature Pulse Rate 117 H 123 H 122 H Pulse Rate [ Bilateral Throughout] Pulse Rate [ Radial] Pulse Rate [ 123 H Right Dorsalis Pedis] Respiratory 7 L 5 L 15 Rate Respiratory Rate [Bilateral Throughout] Blood Pressure 90/41 90/41 90/41 O2 Sat by Pulse 100 100 100 Oximetry 10/22/21 10/22/21 10/22/21 04:30 04:41 04:48 Temperature Pulse Rate 119 H 118 H 117 H Pulse Rate [ Bilateral Throughout] Pulse Rate [ Radial] Pulse Rate [ Right Dorsalis Pedis] Respiratory 10 L 8 L Rate Respiratory Rate [Bilateral Throughout] Blood Pressure 89/48 89/48 89/48 O2 Sat by Pulse 99 99 99 Oximetry 10/22/21 10/22/21 10/22/21 04:51 05:00 05:11 Temperature Pulse Rate 116 H 116 H 119 H Pulse Rate [ Bilateral Throughout] Pulse Rate [ Radial] Pulse Rate [ Right Dorsalis Pedis] Respiratory 7 L 6 L 12 Rate Respiratory Rate [Bilateral Throughout] Blood Pressure 89/48 87/48 87/48 O2 Sat by Pulse 100 100 100 Oximetry 10/22/21 10/22/21 10/22/21 05:21 05:30 05:41 Temperature Pulse Rate 115 H 113 H 122 H Pulse Rate [ Bilateral Throughout] Pulse Rate [ Radial] Pulse Rate [ Right Dorsalis Pedis] Respiratory 7 L 5 L 6 L Rate Respiratory Rate [Bilateral Throughout] Blood Pressure 90/54 84/46 88/36 O2 Sat by Pulse 100 100 100 Oximetry 10/22/21 10/22/21 10/22/21 05:51 06:01 07:48 Temperature Pulse Rate 124 H 174 H 119 H Pulse Rate [ Bilateral Throughout] Pulse Rate [ Radial] Pulse Rate [ Right Dorsalis Pedis] Respiratory 9 L 16 Rate Respiratory Rate [Bilateral Throughout] Blood Pressure 88/36 88/36 85/48 O2 Sat by Pulse 100 99 100 Oximetry 10/22/21 10/22/21 09:00 09:20 Temperature 101.5 F H Pulse Rate Pulse Rate [ 130 H Bilateral Throughout] Pulse Rate [ Radial] Pulse Rate [ Right Dorsalis Pedis] Respiratory Rate Respiratory 18 Rate [Bilateral Throughout] Blood Pressure O2 Sat by Pulse Oximetry Constitutional: asleep Eyes: non-icteric Neck: other (6.0 ET tube in stoma) Effort: normal Ascultation: Bilateral: clear Percussion: Bilateral: not dull Cardiovascular: other (sinus tach) Gastrointestinal: normoactive bowel sounds Extremities: no cyanosis, no edema, pulses normal CBC and BMP: 10/24/21 04:13 10/24/21 04:13 ABG, PT/INR, D-dimer: ABG ABG pH 7.337 pH Units (7.350-7.450) L 10/22/21 04:15 ABG pCO2 37.2 mm Hg 10/22/21 04:15 ABG pO2 94.2 mm Hg (80.0-90.0) H 10/22/21 04:15 ABG O2 Saturation 97.2 % (95.0-99.0) 10/22/21 04:15 Abnormal lab findings: Abnormal Labs 10/20/21 10/20/21 10/20/21 21:03 21:03 21:03 RBC 2.86 L Hgb 7.7 L Hct 23.6 L MCV 83 L MCH 27 L RDW 23.0 H Plt Count 535 H Lymph % (Auto) 6.7 L [place] % (Auto) 9.4 H Lymph # (Auto) 0.6 L [place] # (Auto) 0.9 H Seg Neutrophils % 83.5 H APTT 41.4 H ABG pH ABG pO2 ABG HCO3 ABG O2 Saturation ABG Base Excess ABG Hemoglobin Sodium 136 L Chloride Carbon Dioxide 18 L Creatinine 0.7 L Glucose 114 H Lactic Acid Calcium 7.1 L AST 70 H Alkaline Phosphatase 1174 H Total Protein 5.1 L Albumin 2.3 L Ur Specific [place] Crossmatch 10/20/21 10/20/21 10/20/21 21:03 22:30 Unknown RBC Hgb Hct MCV MCH RDW Plt Count Lymph % (Auto) [place] % (Auto) Lymph # (Auto) [place] # (Auto) Seg Neutrophils % APTT ABG pH ABG pO2 218.0 H ABG HCO3 18.0 L ABG O2 Saturation 99.3 H ABG Base Excess -6.4 L ABG Hemoglobin 7.6 L Sodium Chloride Carbon Dioxide Creatinine Glucose Lactic Acid 3.10 H* Calcium AST Alkaline Phosphatase Total Protein Albumin Ur Specific [place] 1.035 H Crossmatch 10/21/21 10/21/21 10/21/21 04:44 04:44 04:44 RBC 2.63 L Hgb 6.9 L Hct 21.7 L MCV 83 L MCH 26 L RDW 22.7 H Plt Count 490 H Lymph % (Auto) 7.0 L [place] % (Auto) 9.2 H Lymph # (Auto) 0.5 L [place] # (Auto) Seg Neutrophils % 82.4 H APTT ABG pH ABG pO2 94.2 H ABG HCO3 19.1 L ABG O2 Saturation ABG Base Excess -5.0 L ABG Hemoglobin 6.6 L Sodium Chloride Carbon Dioxide 17 L Creatinine 0.6 L Glucose Lactic Acid Calcium 7.6 L AST Alkaline Phosphatase Total Protein Albumin Ur Specific [place] Crossmatch 10/21/21 10/21/2110/21/22 07:37 07:37 15:11 RBC Hgb Hct MCV MCH RDW Plt Count Lymph % (Auto) [place] % (Auto) Lymph # (Auto) [place] # (Auto) Seg Neutrophils % APTT ABG pH ABG pO2 ABG HCO3 ABG O2 Saturation ABG Base Excess ABG Hemoglobin Sodium Chloride Carbon Dioxide Creatinine Glucose Lactic Acid 4.10 H* 2.40 H* Calcium AST Alkaline Phosphatase Total Protein Albumin Ur Specific [place] Crossmatch See Detail 10/21/21 10/22/21 10/22/21 15:23 04:15 04:24 RBC 2.51 L 2.76 L Hgb 6.8 L 7.4 L Hct 20.9 L 23.3 L MCV 83 L MCH 27 L 27 L RDW 21.6 H 22.0 H Plt Count Lymph % (Auto) 7.1 L [place] % (Auto) Lymph # (Auto) 0.5 L [place] # (Auto) Seg Neutrophils % 84.0 H APTT ABG pH 7.337 L ABG pO2 94.2 H ABG HCO3 19.5 L ABG O2 Saturation ABG Base Excess -5.8 L ABG Hemoglobin 7.2 L Sodium Chloride Carbon Dioxide Creatinine Glucose Lactic Acid Calcium AST Alkaline Phosphatase Total Protein Albumin Ur Specific [place] Crossmatch 10/22/21 04:24 RBC Hgb Hct MCV MCH RDW Plt Count Lymph % (Auto) [place] % (Auto) Lymph # (Auto) [place] # (Auto) Seg Neutrophils % APTT ABG pH ABG pO2 ABG HCO3 ABG O2 Saturation ABG Base Excess ABG Hemoglobin Sodium Chloride 109.2 H Carbon Dioxide 18 L Creatinine 0.5 L Glucose Lactic Acid Calcium 7.5 L AST Alkaline Phosphatase Total Protein Albumin Ur Specific [place] Crossmatch
[2021-10-22] MEDS ORDERED: dilTIAZem 25 MG/5 ML INJ IV ONE (21:32)
[2021-10-23] MEDS: DEXTROSE 10% *Hypoglycemia IV PRN (00:55)
[2021-10-23] MEDS: IPRATROPIUM/ALBUTEROL SULFATE 3 ML AMPUL.NEB IH SCH ×4 (01:09→19:51)
[2021-10-23] MEDS: CEFEPIME/NS 1 GM/100 ML 1 GM/100 ML BAG IV SCH ×4 (01:29→23:59)
[2021-10-23] MEDS: fentaNYL DRIP Premix 2,000 MCG/100 ML BAG IV SCH ×5 (03:42→22:35)
[2021-10-23] MEDS: INSULIN REGULAR, HUMAN 100 UNITS/1 ML SUB-Q SCH ×4 (03:44→22:45)
--- NOTE | 2021-10-23 03:50 | Progress Note ---
Assessment and Plan 66 y/o male with chronic respiratory failure, admitted with dislodgement of trach. 10/23/21: I did not call any place on yesterday. I will speak with the POA sometime this weekend. I want to give him (POA) some more time as this will be difficult for him. Continue supportive measures. 10/22/21: Patient with completely occluded airway proxmial/caudal to the 6.0 ET tube going through stoma. Per surgery here, they are not able to place trach and suggest transfer. I am considering calling his POA and discussing comfort measures given this patient has metastatic cancer and because this was not done with contrast, rads states they cannot tell exactly what type if tissue is occluding airway but they are concerned for tumor vs some inflammatory tissue. I personally do no think another institution with ENT or Thoracic would accept this patient knowing his overall prognosis. Continue supportive measures for now. Called the [facility] doc who looked up patient. 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 I have spoken with general surgery about this as well. Will do the followin. Attempt to obtain records from [place], especially regarding the tracheal stenosis and the level of stenosis. 2. Will obtain CT of neck here, noncontrast to see if we can evaluate the level 3. Consider attempting to transfer back to [place] if gen surge not able to help with airway or to an institution that has ENT care 4. Tachycardia is sinus. Patient is in pain but likely is volume deplete as well. He has gotten one unit of blood and will give several boluses of fluids now and reassess as tolerated. 5. Anemia, likely from chronic disease. Agree with transfusion but would have given 2 units. 6. Pain control 7. Guarded prognosis. CCT 31 minutes. Subjective Date of service: 10/23/21 Interval history: I did not call another institution yesterday. Clinically unchanged. Objective Vital Signs - 12hr 10/22/21 10/22/21 10/22/21 15:50 16:00 16:10 Temperature Pulse Rate 111 H 110 H 111 H Pulse Rate [ Bilateral Throughout] Pulse Rate [ Right Dorsalis Pedis] Respiratory 21 18 17 Rate Respiratory Rate [Bilateral Throughout] Blood Pressure 97/64 97/64 104/59 O2 Sat by Pulse 100 100 100 Oximetry 10/22/21 10/22/21 10/22/21 16:20 16:30 16:40 Temperature Pulse Rate 112 H 109 H 111 H Pulse Rate [ Bilateral Throughout] Pulse Rate [ Right Dorsalis Pedis] Respiratory 19 12 20 Rate Respiratory Rate [Bilateral Throughout] Blood Pressure 104/59 105/70 105/70 O2 Sat by Pulse 100 92 100 Oximetry 10/22/21 10/22/21 10/22/21 16:50 17:00 17:10 Temperature 98.5 F Pulse Rate 111 H 113 H 111 H Pulse Rate [ Bilateral Throughout] Pulse Rate [ Right Dorsalis Pedis] Respiratory 18 18 22 Rate Respiratory Rate [Bilateral Throughout] Blood Pressure 105/70 97/63 97/63 O2 Sat by Pulse 100 100 Oximetry 10/22/21 10/22/21 10/22/21 17:20 17:30 17:40 Temperature Pulse Rate 111 H 112 H 111 H Pulse Rate [ Bilateral Throughout] Pulse Rate [ Right Dorsalis Pedis] Respiratory 16 20 17 Rate Respiratory Rate [Bilateral Throughout] Blood Pressure 97/63 100/56 100/56 O2 Sat by Pulse 100 100 100 Oximetry 10/22/21 10/22/21 10/22/21 17:50 18:00 18:10 Temperature Pulse Rate 113 H 111 H 114 H Pulse Rate [ Bilateral Throughout] Pulse Rate [ Right Dorsalis Pedis] Respiratory 17 19 17 Rate Respiratory Rate [Bilateral Throughout] Blood Pressure 100/56 96/64 96/64 O2 Sat by Pulse 100 100 100 Oximetry 10/22/21 10/22/21 10/22/21 18:20 18:30 18:40 Temperature Pulse Rate 119 H 113 H 119 H Pulse Rate [ Bilateral Throughout] Pulse Rate [ Right Dorsalis Pedis] Respiratory 19 17 16 Rate Respiratory Rate [Bilateral Throughout] Blood Pressure 96/64 89/62 89/62 O2 Sat by Pulse 100 100 100 Oximetry 10/22/21 10/22/21 10/22/21 18:50 19:00 19:10 Temperature Pulse Rate 111 H 113 H 109 H Pulse Rate [ Bilateral Throughout] Pulse Rate [ Right Dorsalis Pedis] Respiratory 19 19 15 Rate Respiratory Rate [Bilateral Throughout] Blood Pressure 89/62 92/62 92/62 O2 Sat by Pulse 100 100 100 Oximetry 10/22/21 10/22/21 10/22/21 19:20 19:30 19:40 Temperature Pulse Rate 119 H 122 H 112 H Pulse Rate [ Bilateral Throughout] Pulse Rate [ Right Dorsalis Pedis] Respiratory 18 18 15 Rate Respiratory Rate [Bilateral Throughout] Blood Pressure 92/62 95/63 95/63 O2 Sat by Pulse 100 100 100 Oximetry 10/22/21 10/22/21 10/22/21 19:50 19:53 20:00 Temperature 98.9 F Pulse Rate 109 H 115 H 110 H Pulse Rate [ Bilateral Throughout] Pulse Rate [ 110 H Right Dorsalis Pedis] Respiratory 18 17 Rate Respiratory Rate [Bilateral Throughout] Blood Pressure 95/63 95/63 96/59 O2 Sat by Pulse 100 100 84 Oximetry 10/22/21 10/22/21 10/22/21 20:10 20:20 20:30 Temperature Pulse Rate 117 H 112 H 113 H Pulse Rate [ 112 H Bilateral Throughout] Pulse Rate [ Right Dorsalis Pedis] Respiratory 21 12 15 Rate Respiratory 18 Rate [Bilateral Throughout] Blood Pressure 96/59 96/59 96/59 O2 Sat by Pulse 100 96 97 Oximetry 10/22/21 10/22/21 10/22/21 20:40 20:50 21:00 Temperature Pulse Rate 114 H 112 H 142 H Pulse Rate [ Bilateral Throughout] Pulse Rate [ Right Dorsalis Pedis] Respiratory 17 17 18 Rate Respiratory Rate [Bilateral Throughout] Blood Pressure 96/59 96/59 96/59 O2 Sat by Pulse 100 100 100 Oximetry 10/22/21 10/22/21 10/22/21 21:10 21:20 21:30 Temperature Pulse Rate 114 H 122 H 178 H Pulse Rate [ Bilateral Throughout] Pulse Rate [ Right Dorsalis Pedis] Respiratory 17 13 15 Rate Respiratory Rate [Bilateral Throughout] Blood Pressure 94/59 94/59 104/60 O2 Sat by Pulse 100 94 Oximetry 10/22/21 10/22/21 10/22/21 21:39 21:40 21:50 Temperature Pulse Rate 177 H 175 H 133 H Pulse Rate [ Bilateral Throughout] Pulse Rate [ Right Dorsalis Pedis] Respiratory 14 17 18 Rate Respiratory Rate [Bilateral Throughout] Blood Pressure 101/57 101/57 101/57 O2 Sat by Pulse 100 100 100 Oximetry 10/22/21 10/22/21 10/22/21 22:00 22:10 22:20 Temperature Pulse Rate 116 H 122 H 128 H Pulse Rate [ Bilateral Throughout] Pulse Rate [ Right Dorsalis Pedis] Respiratory 19 17 18 Rate Respiratory Rate [Bilateral Throughout] Blood Pressure 106/59 106/59 106/59 O2 Sat by Pulse 100 100 100 Oximetry 10/22/21 10/22/21 10/22/21 22:30 22:40 22:50 Temperature Pulse Rate 119 H 121 H 117 H Pulse Rate [ Bilateral Throughout] Pulse Rate [ Right Dorsalis Pedis] Respiratory 17 17 16 Rate Respiratory Rate [Bilateral Throughout] Blood Pressure 86/55 86/55 86/55 O2 Sat by Pulse 100 100 100 Oximetry 10/22/21 10/22/21 10/22/21 23:00 23:10 23:20 Temperature Pulse Rate 119 H 116 H 112 H Pulse Rate [ Bilateral Throughout] Pulse Rate [ Right Dorsalis Pedis] Respiratory 18 19 18 Rate Respiratory Rate [Bilateral Throughout] Blood Pressure 93/63 93/63 93/63 O2 Sat by Pulse 100 100 100 Oximetry 10/22/21 10/22/21 10/22/21 23:30 23:40 23:44 Temperature Pulse Rate 114 H 112 H 113 H Pulse Rate [ Bilateral Throughout] Pulse Rate [ Right Dorsalis Pedis] Respiratory 19 14 Rate Respiratory Rate [Bilateral Throughout] Blood Pressure 95/61 95/61 95/61 O2 Sat by Pulse 100 100 100 Oximetry 10/22/21 10/23/21 10/23/21 23:50 00:00 00:10 Temperature 99.3 F Pulse Rate 118 H 112 H 117 H Pulse Rate [ Bilateral Throughout] Pulse Rate [ 112 H Right Dorsalis Pedis] Respiratory 17 16 18 Rate Respiratory Rate [Bilateral Throughout] Blood Pressure 95/61 99/65 99/65 O2 Sat by Pulse 100 100 100 Oximetry 10/23/21 10/23/21 10/23/21 00:20 00:30 00:40 Temperature Pulse Rate 112 H 113 H 112 H Pulse Rate [ Bilateral Throughout] Pulse Rate [ Right Dorsalis Pedis] Respiratory 18 18 21 Rate Respiratory Rate [Bilateral Throughout] Blood Pressure 99/65 100/56 100/56 O2 Sat by Pulse 100 100 100 Oximetry 10/23/21 10/23/21 10/23/21 00:50 01:00 01:09 Temperature Pulse Rate 112 H 115 H Pulse Rate [ 107 H Bilateral Throughout] Pulse Rate [ Right Dorsalis Pedis] Respiratory 18 16 Rate Respiratory 19 Rate [Bilateral Throughout] Blood Pressure 100/56 96/56 O2 Sat by Pulse 100 100 Oximetry 10/23/21 10/23/21 10/23/21 01:10 01:20 01:30 Temperature Pulse Rate 111 H 115 H 112 H Pulse Rate [ Bilateral Throughout] Pulse Rate [ Right Dorsalis Pedis] Respiratory 16 16 17 Rate Respiratory Rate [Bilateral Throughout] Blood Pressure 96/56 96/56 100/64 O2 Sat by Pulse 100 100 77 L Oximetry 10/23/21 10/23/21 10/23/21 01:40 01:50 02:00 Temperature Pulse Rate 111 H 113 H 112 H Pulse Rate [ Bilateral Throughout] Pulse Rate [ Right Dorsalis Pedis] Respiratory 14 18 19 Rate Respiratory Rate [Bilateral Throughout] Blood Pressure 100/64 100/64 104/58 O2 Sat by Pulse 100 100 100 Oximetry 10/23/21 10/23/21 10/23/21 02:10 02:20 02:30 Temperature Pulse Rate 112 H 110 H 114 H Pulse Rate [ Bilateral Throughout] Pulse Rate [ Right Dorsalis Pedis] Respiratory 18 17 17 Rate Respiratory Rate [Bilateral Throughout] Blood Pressure 104/58 104/58 93/61 O2 Sat by Pulse 100 100 100 Oximetry 10/23/21 10/23/21 10/23/21 02:40 02:50 03:00 Temperature Pulse Rate 107 H 108 H 109 H Pulse Rate [ Bilateral Throughout] Pulse Rate [ Right Dorsalis Pedis] Respiratory 18 17 18 Rate Respiratory Rate [Bilateral Throughout] Blood Pressure 93/61 93/61 99/57 O2 Sat by Pulse 100 100 100 Oximetry 10/23/21 10/23/21 03:04 03:37 Temperature 98.6 F Pulse Rate 109 H Pulse Rate [ Bilateral Throughout] Pulse Rate [ Right Dorsalis Pedis] Respiratory Rate Respiratory Rate [Bilateral Throughout] Blood Pressure 99/57 O2 Sat by Pulse 100 Oximetry Constitutional: asleep Eyes: non-icteric Neck: other (6.0 ET tube in stoma) Effort: normal Ascultation: Bilateral: clear Percussion: Bilateral: not dull Cardiovascular: other (sinus tach) Gastrointestinal: normoactive bowel sounds Extremities: no cyanosis, no edema, pulses normal CBC and BMP: 10/22/21 04:24 10/22/21 04:24 ABG, PT/INR, D-dimer: ABG ABG pH 7.337 pH Units (7.350-7.450) L 10/22/21 04:15 ABG pCO2 37.2 mm Hg 10/22/21 04:15 ABG pO2 94.2 mm Hg (80.0-90.0) H 10/22/21 04:15 ABG O2 Saturation 97.2 % (95.0-99.0) 10/22/21 04:15 Abnormal lab findings: Abnormal Labs 10/20/21 10/20/21 10/20/21 21:03 21:03 21:03 RBC 2.86 L Hgb 7.7 L Hct 23.6 L MCV 83 L MCH 27 L RDW 23.0 H Plt Count 535 H Lymph % (Auto) 6.7 L [place] % (Auto) 9.4 H Lymph # (Auto) 0.6 L [place] # (Auto) 0.9 H Seg Neutrophils % 83.5 H APTT 41.4 H ABG pH ABG pO2 ABG HCO3 ABG O2 Saturation ABG Base Excess ABG Hemoglobin Sodium 136 L Chloride Carbon Dioxide 18 L Creatinine 0.7 L Glucose 114 H POC Glucose Lactic Acid Calcium 7.1 L AST 70 H Alkaline Phosphatase 1174 H Total Protein 5.1 L Albumin 2.3 L Ur Specific [place] Crossmatch 10/20/21 10/20/21 10/20/21 21:03 22:30 Unknown RBC Hgb Hct MCV MCH RDW Plt Count Lymph % (Auto) [place] % (Auto) Lymph # (Auto) [place] # (Auto) Seg Neutrophils % APTT ABG pH ABG pO2 218.0 H ABG HCO3 18.0 L ABG O2 Saturation 99.3 H ABG Base Excess -6.4 L ABG Hemoglobin 7.6 L Sodium Chloride Carbon Dioxide Creatinine Glucose POC Glucose Lactic Acid 3.10 H* Calcium AST Alkaline Phosphatase Total Protein Albumin Ur Specific [place] 1.035 H Crossmatch 10/21/21 10/21/21 10/21/21 04:44 04:44 04:44 RBC 2.63 L Hgb 6.9 L Hct 21.7 L MCV 83 L MCH 26 L RDW 22.7 H Plt Count 490 H Lymph % (Auto) 7.0 L [place] % (Auto) 9.2 H Lymph # (Auto) 0.5 L [place] # (Auto) Seg Neutrophils % 82.4 H APTT ABG pH ABG pO2 94.2 H ABG HCO3 19.1 L ABG O2 Saturation ABG Base Excess -5.0 L ABG Hemoglobin 6.6 L Sodium Chloride Carbon Dioxide 17 L Creatinine 0.6 L Glucose POC Glucose Lactic Acid Calcium 7.6 L AST Alkaline Phosphatase Total Protein Albumin Ur Specific [place] Crossmatch 10/21/21 10/21/21 10/21/21 07:37 07:37 15:11 RBC Hgb Hct MCV MCH RDW Plt Count Lymph % (Auto) [place] % (Auto) Lymph # (Auto) [place] # (Auto) Seg Neutrophils % APTT ABG pH ABG pO2 ABG HCO3 ABG O2 Saturation ABG Base Excess ABG Hemoglobin Sodium Chloride Carbon Dioxide Creatinine Glucose POC Glucose Lactic Acid 4.10 H* 2.40 H* Calcium AST Alkaline Phosphatase Total Protein Albumin Ur Specific [place] Crossmatch See Detail 10/21/21 10/22/21 10/22/21 15:23 04:15 04:24 RBC 2.51 L 2.76 L Hgb 6.8 L 7.4 L Hct 20.9 L 23.3 L MCV 83 L MCH 27 L 27 L RDW 21.6 H 22.0 H Plt Count Lymph % (Auto) 7.1 L [place] % (Auto) Lymph # (Auto) 0.5 L [place] # (Auto) Seg Neutrophils % 84.0 H APTT ABG pH 7.337 L ABG pO2 94.2 H ABG HCO3 19.5 L ABG O2 Saturation ABG Base Excess -5.8 L ABG Hemoglobin 7.2 L Sodium Chloride Carbon Dioxide Creatinine Glucose POC Glucose Lactic Acid Calcium AST Alkaline Phosphatase Total Protein Albumin Ur Specific [place] Crossmatch 10/22/21 10/22/21 10/22/21 04:24 05:11 09:23 RBC Hgb Hct MCV MCH RDW Plt Count Lymph % (Auto) [place] % (Auto) Lymph # (Auto) [place] # (Auto) Seg Neutrophils % APTT ABG pH ABG pO2 ABG HCO3 ABG O2 Saturation ABG Base Excess ABG Hemoglobin Sodium Chloride 109.2 H Carbon Dioxide 18 L Creatinine 0.5 L Glucose POC Glucose 61 L 69 L Lactic Acid Calcium 7.5 L AST Alkaline Phosphatase Total Protein Albumin Ur Specific [place] Crossmatch
[2021-10-23 04:30] LABS: ABG Base Excess -8.3 mmol/L (-2.0-3.0); ABG HCO3 19.1 mmol/L (20.0-26.0); ABG PCO2 49.8 mm Hg; ABG PH 7.202 pH Units (7.350-7.450); ABG PO2 162.4 mm Hg (80.0-90.0)
[2021-10-23 04:31] LABS: ABG Methemoglobin 0.6 % (0.0-1.5); ABG Oxygen Saturation 98.7 % (95.0-99.0)
[2021-10-23] MEDS ORDERED: METOPROLOL TARTRATE 5 MG/5 ML INJ IV ONE ×2 (04:48→04:54)
[2021-10-23] MEDS: HYDROmorphone 1 MG/1 ML INJ IV PRN (05:54)
[2021-10-23 08:17] LABS: Hematocrit 24.6 % (35.5-45.6); Hemoglobin 7.6 gm/dl (11.8-15.2); Mean Corpuscular HGB Conc 31 % (32-34); Mean Corpuscular Volume 87 fl (84-94); Platelet Count 408 K/mm3 (140-440); Red Blood Count 2.82 M/mm3 (3.65-5.03)
[2021-10-23 08:19] LABS: Red Cell Distribution Width 21.8 % (13.2-15.2)
[2021-10-23 08:43] LABS: Blood Urea Nitrogen 16 mg/dL (9-20); Calcium 7.9 mg/dL (8.4-10.2); Hemolysis Index 19
[2021-10-23 08:50] LABS: BUN/Creatinine Ratio 32
[2021-10-23] MEDS: HEPARIN 5,000 UNIT/1 ML VIAL SUB-Q SCH ×2 (09:54→21:38)
[2021-10-23] MEDS: FAMOTIDINE 20 MG/2 ML INJ IV SCH ×2 (09:55→21:39)
[2021-10-23] MEDS: VANCOMYCIN 1,250 MG in SODIUM CHLORIDE 0.9% 250ML 250 ML IV SCH ×2 (10:00→21:38)
--- NOTE | 2021-10-23 11:23 | Progress Note ---
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, chronic respiratory failure s/p trach, sacral stenosis, HTN, SVT admitted with dislodgment of tracheostomy Neuro: h/o chronic pain -Sedated with fentanyl -RASS goal 0 to -1 -Avoid delirium -Reorientation as needed -Maintain sleep-wake cycle -As needed analgesia -Bilateral restraints for safety Cardiac: ST, h/o SVT, HTN -Cardiology consulted, appreciate recommendations -Blood pressure monitoring per protocol -s/p 5.5 L IVF bolus -Of note patient home meds include metoprolol 50mg BID -IV BB with hold parameters Respiratory: Chronic respiratory failure, h/o tracheal stenosis, vocal cord paralysis -CCM consulted, appreciate recommendations -Intubated with a 6.0 ETT and tracheostomy tube on 10/20 in the ED -A.m. vent settings: Assist-control/PRVC tidal volume 500, rate 18, PEEP 6, FiO2 60% -See RT notes for titration -A.m. ABG noted -VAP bundle -SPO2 monitoring -CT neck shows soft tissue thickening in the supraglottic trachea above the tracheostomy level with soft tissue thickening surrounding upper tracheal endotracheal tube, diffuse osseous metastasis, bilateral pleural effusions (right > left) GI: Protein calorie malnutrition, elevated alkaline phos and AST -24 hours +2660 mL -PPI -MIVF while n.p.o. -Ntr consult for TF -Trend LFTs : Metabolic acidosis -Strict intake and output -Renally dose medications -Avoid nephrotoxic medications -Daily weights ID: Lactic acidosis, ? PNA, Sepsis -meets criteria with LA, tachycardia, possible pna on imaging -Antibiotic therapy with cefepime, vancomycin -Follow-up blood culture -Monitor WBC and temperature curve Endo: NAD -Avoid hypoglycemia -SSI -Accu-Cheks q. 6 Heme: Anemia, h/o anemia of chronic disease -Trend CBC -Transfuse hemoglobin less than 7 -s/p 2 units prbc -Monitor for signs of bleeding -SCDs to BLE while in bed -Heparin subq The high probability of a clinically significant, sudden or life threatening deterioration of the [multi] system(s) required my full and direct attention, intervention and personal management. The aggregate critical care time was [90] minutes. This time is in addition to time spent performing reported procedures but includes the following: [x] Data Review and interpretation [x] Patient assessment and monitoring of vital signs [x] Documentation [x] Medication orders and management Disposition Plan: icu Total Time Spent with Patient (Minutes): 90 History Interval history: This is 66 year old male with Prostate CA with mets to spine s/p radiaiton therapy, chronic resp failure s/p trach (2018), trachal stenosis, HTN, h/o SVT, COVID 19 (06/2021) with moderna vaccine x2, anemia and chronic pain who presented to the ED on 10/20 from his snf after tracheostomy dislodgement and inability to replace trach via EMS on 15 L NC. In the ED 6.0 OETT was inserted into his tracheostomy and sutured into place. Work-up in the emergency department revealed lactic acidosis, tachycardia. Patient was admitted to the hospitalist service with consults to CCM and general surgery. Hospital course to date: 10/21: Code status changed to DNR, POA brought Living will which is in the chart along with records from snf. LR bolus for tachycardia. Upon review of medical records it was noted that patient was on beta-giovanni. No p.o. access currently. Withholding IV beta-giovanni initiation due to low blood pressure. We will continue antibiotics due to concerning imaging. Neck CT pending. 10/22: Ct neck results noted. Supraglottic stenosis noted as well as diffuse metatatic disease c/w history of prostate ca. Surgical and PCCM perspective noted. Unfortunately, will likely need ENT services if POA decides be aggressive with tracheal stenosis which we do not have in house. Will need to discuss with POA re: GOC and how aggressive they would like to be. Hgb drop noted this AM, transfused one unit. 10/23: DHT placed, consulted NTR, once TF started can wean off dextrose. POA updated by Dr. Vanegas Hospitalist Physical - Constitutional Vitals: Temp Pulse Resp BP Pulse Ox 98.1 F 104 H 19 97/62 100 10/23/21 07:52 10/23/21 08:20 10/23/21 08:20 10/23/21 08:20 10/23/21 08:20 General appearance: Present: no acute distress - EENT Eyes: Present: PERRL, EOM intact ENT: dentition normal - Neck Neck: Present: normal ROM - Respiratory Respiratory effort: normal Respiratory: bilateral: diminished - Cardiovascular Rhythm: regular Heart Sounds: Present: S1 & S2. Absent: systolic murmur, diastolic murmur - Extremities Extremities: no ischemia, pulses intact, pulses symmetrical, No edema, normal temperature, normal color Peripheral Pulses: within normal limits - Abdominal General gastrointestinal: soft, non-tender, non-distended, normal bowel sounds - Integumentary Integumentary: Present: warm, dry - Neurologic Neurologic: other (bilateral wrist restriants in place for safety) Results - Labs CBC & Chem 7: 10/23/21 07:41 10/23/21 07:41 Labs: Laboratory Last Values WBC 7.9 K/mm3 (4.5-11.0) 10/23/21 07:41 RBC 2.82 M/mm3 (3.65-5.03) L 10/23/21 07:41 Hgb 7.6 gm/dl (11.8-15.2) L 10/23/21 07:41 Hct 24.6 % (35.5-45.6) L 10/23/21 07:41 MCV 87 fl (84-94) 10/23/21 07:41 MCH 27 pg (28-32) L 10/23/21 07:41 MCHC 31 % (32-34) L 10/23/21 07:41 RDW 21.8 % (13.2-15.2) H 10/23/21 07:41 Plt Count 408 K/mm3 (140-440) 10/23/21 07:41 Lymph % (Auto) 7.1 % (13.4-35.0) L 10/21/21 15:23 [place] % (Auto) 6.5 % (0.0-7.3) 10/21/21 15:23 Eos % (Auto) 2.0 % (0.0-4.3) 10/21/21 15:23 Baso % (Auto) 0.4 % (0.0-1.8) 10/21/21 15:23 Lymph # (Auto) 0.5 K/mm3 (1.2-5.4) L 10/21/21 15:23 [place] # (Auto) 0.5 K/mm3 (0.0-0.8) 10/21/21 15:23 Eos # (Auto) 0.1 K/mm3 (0.0-0.4) 10/21/21 15:23 Baso # (Auto) 0.0 K/mm3 (0.0-0.1) 10/21/21 15:23 Seg Neutrophils % 84.0 % (40.0-70.0) H 10/21/21 15:23 Seg Neutrophils # 6.1 K/mm3 (1.8-7.7) 10/21/21 15:23 APTT 41.4 Sec. (24.2-36.6) H 10/20/21 21:03 ABG pH 7.202 pH Units (7.350-7.450) L 10/23/21 04:06 ABG pCO2 49.8 mm Hg 10/23/21 04:06 ABG pO2 162.4 mm Hg (80.0-90.0) H 10/23/21 04:06 ABG HCO3 19.1 mmol/L (20.0-26.0) L 10/23/21 04:06 ABG O2 Saturation 98.7 % (95.0-99.0) 10/23/21 04:06 ABG O2 Content 9.9 (0.0-44) 10/22/21 04:15 ABG Base Excess -8.3 mmol/L (-2.0-3.0) L 10/23/21 04:06 ABG Hemoglobin 7.4 gm/dl (14.0-18.0) L 10/23/21 04:06 ABG Carboxyhemoglobin 1.3 % (0.0-5.0) 10/23/21 04:06 ABG Methemoglobin 0.6 % (0.0-1.5) 10/23/21 04:06 Oxyhemoglobin 96.9 % (95.0-99.0) 10/23/21 04:06 FiO2 45 % 10/22/21 04:15 Sodium 135 mmol/L (137-145) L 10/23/21 07:41 Potassium 4.1 mmol/L (3.6-5.0) 10/23/21 07:41 Chloride 105.5 mmol/L (98-107) 10/23/21 07:41 Carbon Dioxide 16 mmol/L (22-30) L 10/23/21 07:41 Anion Gap 18 mmol/L 10/23/21 07:41 BUN 16 mg/dL (9-20) 10/23/21 07:41 Creatinine 0.5 mg/dL (0.8-1.3) L 10/23/21 07:41 Estimated GFR > 60 ml/min 10/23/21 07:41 BUN/Creatinine Ratio 32 % 10/23/21 07:41 Glucose 93 mg/dL (75-100) 10/23/21 07:41 POC Glucose 71 mg/dL (70-105) 10/23/21 05:21 Lactic Acid 2.40 mmol/L (0.7-2.0) H* 10/21/21 15:11 Calcium 7.9 mg/dL (8.4-10.2) L 10/23/21 07:41 Phosphorus 3.00 mg/dL (2.5-4.5) 10/22/21 04:24 Magnesium 1.80 mg/dL (1.7-2.3) 10/22/21 04:24 Total Bilirubin 0.90 mg/dL (0.1-1.2) 10/20/21 21:03 AST 70 units/L (5-40) H 10/20/21 21:03 ALT 7 units/L (7-56) 10/20/21 21:03 Alkaline Phosphatase 1174 units/L (35-129) H 10/20/21 21:03 Total Protein 5.1 g/dL (6.3-8.2) L 10/20/21 21:03 Albumin 2.3 g/dL (3.9-5) L 10/20/21 21:03 Albumin/Globulin Ratio 0.8 % 10/20/21 21:03 Urine Color [place] (Yellow) 10/20/21 Unknown Urine Turbidity Clear (Clear) 10/20/21 Unknown Urine pH 5.0 (5.0-7.0) 10/20/21 Unknown Ur Specific [place] 1.035 (1.003-1.030) H 10/20/21 Unknown Urine Protein 30 mg/dl mg/dL (Negative) 10/20/21 Unknown Urine Glucose (UA) Neg mg/dL (Negative) 10/20/21 Unknown Urine Ketones Neg mg/dL (Negative) 10/20/21 Unknown Urine Blood Neg (Negative) 10/20/21 Unknown Urine Nitrite Neg (Negative) 10/20/21 Unknown Ur Reducing Substances Not Reportable 10/20/21 Unknown Urine Bilirubin Neg (Negative) 10/20/21 Unknown Urine Ictotest Not Reportable 10/20/21 Unknown Urine Urobilinogen < 2.0 mg/dL (<2.0) 10/20/21 Unknown Ur Leukocyte Esterase Negative (Negative) 10/20/21 Unknown Urine WBC (Auto) 2.0 /HPF (0.0-6.0) 10/20/21 Unknown Urine RBC (Auto) < 1.0 /HPF (0.0-6.0) 10/20/21 Unknown Urine Mucus Few /HPF 10/20/21 Unknown Blood Type A POSITIVE 10/21/21 07:37 Antibody Screen Negative 10/21/21 07:37 Crossmatch See Detail 10/21/21 07:37 Microbiology: Microbiology 10/20/21 22:30 Tracheal Aspirate Sputum Culture - Final 10/20/21 Unknown Urine,Clean Catch Urine Culture - Final NO GROWTH AFTER 48 HOURS 10/20/21 21:03 Peripheral/Venous Blood Culture - Preliminary NO GROWTH AFTER 48 HOURS 10/20/21 21:03 Peripheral/Venous Blood Culture - Preliminary NO GROWTH AFTER 48 HOURS Duran/IV: Voiding Method Indwelling Catheter Active Medications - Current Medications Current Medications: Generic Name Dose Route Start Last Admin Trade Name Freq PRN Reason Stop Dose Admin Acetaminophen 650 mg 10/20/21 23:57 10/21/21 16:01 Acetaminophen 325 Mg Tab PO 650 mg Q4H PRN Administration Pain MILD(1-3)/Fever >100.5/RIVAS Acetaminophen 650 mg 10/21/21 10:09 10/22/21 09:47 Acetaminophen 650 Mg Rect Supp CA 650 mg Q4H PRN Administration Pain, Mild (1-3) Albuterol 2.5 mg 10/20/21 23:57 Albuterol 2.5 Mg/3 Ml Nebu IH Q3HRT PRN Shortness Of Breath Albuterol/Ipratropium 1 ampul 10/21/21 02:00 10/23/21 08:34 Ipratropium/Albuterol Sulfate 3 Ml Ampul.Neb IH 1 ampul Q6HRT [place] Administration Dextrose 0 ml 10/21/21 15:11 10/23/21 00:55 Dextrose 10% *Hypoglycemia IV 250 ml PRN PRN Administration Hypoglycemia Famotidine 20 mg 10/21/21 10:00 10/23/21 09:55 Famotidine 20 Mg/2 Ml Inj IV 20 mg BID [place] Administration Fentanyl 50 mcg 10/20/21 20:44 10/20/21 22:01 Fentanyl 100 Mcg/2 Ml Inj IV 50 mcg Q10MIN PRN Administration ANALGESIA Heparin Sodium (Porcine) 5,000 unit 10/21/21 10:00 10/23/21 09:54 Heparin 5,000 Unit/1 Ml Vial SUB-Q 5,000 unit Q12HR [place] Administration Hydromorphone HCl 0.5 mg 10/20/21 23:57 10/23/21 05:54 Hydromorphone 1 Mg/1 Ml Inj IV 0.5 mg Q3H PRN Administration Pain , Severe (7-10) Fentanyl Citrate 2,000 mcg in 100 mls @ 8.765 mls/hr 10/20/21 21:00 10/23/21 10:53 Fentanyl Drip Premix IV 3 mcg/kg/hr TITR [place] 26.295 mls/hr Administration Protocol 1 MCG/KG/HR Dextrose/Sodium Chloride 1,000 mls @ 100 mls/hr 10/20/21 23:45 10/22/21 22:38 D5/0.45ns IV 100 mls/hr DIRECT [place] Administration Cefepime HCl 1 gm in 100 mls @ 200 mls/hr 10/21/21 08:00 10/23/21 08:50 Cefepime/Ns 1 Gm/100 Ml IV 200 mls/hr Q8H [place] Administration Protocol Vancomycin HCl 1,250 mg/ 275 mls @ 166.667 mls/hr 10/21/21 10:00 10/22/21 22:37 Sodium Chloride IV 166.667 mls/hr Q12H [place] Administration Sodium Chloride 500 mls @ 0 mls/hr 10/21/21 16:25 Nacl 0.9% 500 Ml IV ONCE COUNTS INCLUDE 234 BEDS AT THE [facility] As Directed Insulin Human Regular 0 units 10/21/21 16:00 10/23/21 09:42 Insulin Regular, Human 100 Units/1 Ml SUB-Q Not Given Q6H COUNTS INCLUDE 234 BEDS AT THE [facility] Protocol Metoprolol Tartrate 5 mg 10/23/21 06:00 Metoprolol Tartrate 5 Mg/5 Ml Inj IV Q6HR COUNTS INCLUDE 234 BEDS AT THE [facility] Morphine Sulfate 2 mg 10/20/21 23:57 Morphine 2 Mg/1 Ml Inj IV Q4H PRN Pain, Moderate (4-6) Ondansetron HCl 4 mg 10/20/21 23:57 Ondansetron 4 Mg/2 Ml Inj IV Q8H PRN Nausea And Vomiting Sodium Chloride 10 ml 10/21/21 10:00 10/22/21 21:25 Sodium Chloride 0.9% 10 Ml Flush Syringe IV 10 ml BID [place] Administration Sodium Chloride 10 ml 10/20/21 23:57 Sodium Chloride 0.9% 10 Ml Flush Syringe IV PRN PRN LINE FLUSH Nutrition/Malnutrition Assess - Dietary Evaluation Nutrition/Malnutrition Findings: Nutrition Notes Start: 10/21/21 1 7:22 Freq: Status: Active Protocol: Document 10/21/21 17:22 FELECIA (Rec: 10/21/21 17:35 FELECIA [id number]) Nutrition Notes Need for Assessment generated from: MD Order Initial or Follow up Brief Note Current Diagnosis Sepsis,Respiratory Failure Other Pertinent Diagnosis Tracheostomy malfunction, Anemia, Metastatic Cancer, Weakness. Current Diet NPO (since 10/20 23:58). Height 5 ft 10 in Weight 80 kg [place] Body Weight (kg) 75.45 BMI 25.2 Intake Prior to Admission Good Weight change and time frame POt denies having loss body weight [employer]. Weight Status Appropriate Subjective/Other Information RD consult for evaluation of nutritional intake. Pt is currently on NPO, evaluation of nutritional intake cannot be performed. Will assess at F/U. Pt on mechanical ventilation through tracheostomy. Percent of energy/protein needs met: Pt currently on NPO. Nutrition Intervention Follow-Up By: 10/28/21 Additional Comments When pertinent, start monitoring food tolerance, %PO intake of meals, and BM.
--- NOTE | 2021-10-23 11:33 | XRay Report ---
ABDOMEN AP PORTABLE SUPINE 0745 INDICATION: new NG placement confirmation COMPARISON: None available. FINDINGS: Feeding tube extends well into the stomach. Signer Name: Judah Rhoades MD Signed: 10/23/2021 9:00 AM Workstation Name: [id number]
--- NOTE | 2021-10-23 11:33 | XRay Report ---
CHEST 1 VIEW INDICATION / CLINICAL INFORMATION: follow up respiratory failure. COMPARISON: Chest x-ray 10/22/2021 FINDINGS: SUPPORT DEVICES: Stable, satisfactory device positioning. HEART / MEDIASTINUM: No significant interval change. LUNGS / PLEURA: The lungs are clear. No pneumothorax. ADDITIONAL FINDINGS: Extensive osseous metastatic disease and aggressive appearing periosteal reactio n of the left humeral shaft unchanged. IMPRESSION: 1. No adverse interval change in the chest. Signer Name: Dhruv Johansen II, MD Signed: 10/23/2021 7:56 AM Workstation Name: [id number]
[2021-10-23] MEDS: METOPROLOL TARTRATE 5 MG/5 ML INJ IV SCH ×4 (12:51→23:57)
[2021-10-23] MEDS: D5W/0.45% NACL 1,000 ML IV SCH ×2 (19:41→21:40)
[2021-10-23] MEDS ORDERED: SODIUM CHLORIDE 0.9% 1000 ML 1,000 ML IV ONE (21:23)
[2021-10-23 22:10] LABS: Creatine Kinase MB 2.4 ng/mL (0.0-4.0)
[2021-10-24 00:25] LABS: Chol/HDL Ratio 4.3 %
[2021-10-24] MEDS: fentaNYL DRIP Premix 2,000 MCG/100 ML BAG IV SCH ×3 (03:18→23:53)
[2021-10-24] MEDS: IPRATROPIUM/ALBUTEROL SULFATE 3 ML AMPUL.NEB IH SCH ×4 (04:28→20:39)
[2021-10-24 04:55] LABS: Hematocrit 21.5 % (35.5-45.6); Hemoglobin 6.8 gm/dl (11.8-15.2); Mean Corpuscular HGB Conc 31 % (32-34); Mean Corpuscular Volume 87 fl (84-94); Red Blood Count 2.46 M/mm3 (3.65-5.03)
[2021-10-24] MEDS: INSULIN REGULAR, HUMAN 100 UNITS/1 ML SUB-Q SCH ×4 (05:00→21:13)
[2021-10-24] MEDS: METOPROLOL TARTRATE 5 MG/5 ML INJ IV SCH ×4 (05:04→23:55)
[2021-10-24 05:12] LABS: Platelet Count 325 K/mm3 (140-440); Red Cell Distribution Width 21.9 % (13.2-15.2)
[2021-10-24 05:14] LABS: BUN/Creatinine Ratio 24; Blood Urea Nitrogen 19 mg/dL (9-20); Calcium 7.6 mg/dL (8.4-10.2); Hemolysis Index 119
[2021-10-24 05:19] LABS: ABG Base Excess -9.1 mmol/L (-2.0-3.0); ABG HCO3 17.6 mmol/L (20.0-26.0); ABG Methemoglobin 0.5 % (0.0-1.5); ABG Oxygen Saturation 97.4 % (95.0-99.0); ABG PCO2 41.8 mm Hg; ABG PH 7.242 pH Units (7.350-7.450); ABG PO2 80.5 mm Hg (80.0-90.0)
[2021-10-24] MEDS: D5W/0.45% NACL 1,000 ML IV SCH ×3 (05:41→20:40)
--- NOTE | 2021-10-24 06:18 | XRay Report ---
CHEST 1 VIEW INDICATION / CLINICAL INFORMATION: follow up respiratory failure. COMPARISON: Chest x-ray 10/23/2021 FINDINGS: SUPPORT DEVICES: Tip of tracheostomy tube lies at or possibly just within the right main bronchus. Re traction by 2 cm recommended for optimal positioning.. Interval addition of weighted feeding tube tip below the inferior margin of the image. HEART / MEDIASTINUM: No significant interval change. LUNGS / PLEURA: Bilateral pulmonary opacities are without significant interval change. No pneumothora x. ADDITIONAL FINDINGS: Stable osseous structures. IMPRESSION: 1. Retraction of tracheostomy tube by 2 cm recommended for optimal positioning. 2. Interval insertion of a weighted feeding tube tip below the inferior margin of the image. 3. Otherwise no adverse interval change. Signer Name: Dhruv Johansen II, MD Signed: 10/24/2021 6:14 AM Workstation Name: [id number]
[2021-10-24 07:17] LABS: Creatine Kinase MB 2.3 ng/mL (0.0-4.0)
--- NOTE | 2021-10-24 08:41 | Progress Note ---
Assessment and Plan 66 y/o male with chronic respiratory failure, admitted with dislodgement of trach. 10/24/21: IMS spoke with POA on yesterday. Will discuss with them about current plans. Continue sedation for comfort and pain control. Very poor prognosis given recent CT findings. 10/23/21: I did not call any place on yesterday. I will speak with the POA sometime this weekend. I want to give him (POA) some more time as this will be difficult for him. Continue supportive measures. 10/22/21: Patient with completely occluded airway proxmial/caudal to the 6.0 ET tube going through stoma. Per surgery here, they are not able to place trach and suggest transfer. I am considering calling his POA and discussing comfort measures given this patient has metastatic cancer and because this was not done with contrast, rads states they cannot tell exactly what type if tissue is occluding airway but they are concerned for tumor vs some inflammatory tissue. I personally do no think another institution with ENT or Thoracic would accept this patient knowing his overall prognosis. Continue supportive measures for now. Called the Rehab/alf doc who looked up patient. 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 I have spoken with general surgery about this as well. Will do the followin. Attempt to obtain records from [place], especially regarding the tracheal stenosis and the level of stenosis. 2. Will obtain CT of neck here, noncontrast to see if we can evaluate the level 3. Consider attempting to transfer back to [place] if gen surge not able to help with airway or to an institution that has ENT care 4. Tachycardia is sinus. Patient is in pain but likely is volume deplete as well. He has gotten one unit of blood and will give several boluses of fluids now and reassess as tolerated. 5. Anemia, likely from chronic disease. Agree with transfusion but would have given 2 units. 6. Pain control 7. Guarded prognosis. CCT 31 minutes. Subjective Date of service: 10/24/21 Interval history: No acute events. Objective Vital Signs - 12hr 10/23/21 10/23/21 10/23/21 20:41 20:51 21:00 Temperature Pulse Rate 107 H 108 H 107 H Pulse Rate [ Bilateral Throughout] Pulse Rate [ From Monitor] Respiratory 20 20 20 Rate Respiratory Rate [Bilateral Throughout] Blood Pressure 86/52 86/52 78/51 O2 Sat by Pulse 100 94 95 Oximetry 10/23/21 10/23/21 10/23/21 21:11 21:20 21:30 Temperature Pulse Rate 109 H 109 H 113 H Pulse Rate [ Bilateral Throughout] Pulse Rate [ From Monitor] Respiratory 20 14 15 Rate Respiratory Rate [Bilateral Throughout] Blood Pressure 78/51 81/51 87/59 O2 Sat by Pulse 97 99 98 Oximetry 10/23/21 10/23/21 10/23/21 21:41 21:51 22:00 Temperature Pulse Rate 111 H 111 H 110 H Pulse Rate [ Bilateral Throughout] Pulse Rate [ From Monitor] Respiratory 20 20 20 Rate Respiratory Rate [Bilateral Throughout] Blood Pressure 81/51 81/51 88/51 O2 Sat by Pulse 98 100 99 Oximetry 10/23/21 10/23/21 10/23/21 22:11 22:21 22:30 Temperature Pulse Rate 111 H 111 H 111 H Pulse Rate [ Bilateral Throughout] Pulse Rate [ From Monitor] Respiratory 20 20 15 Rate Respiratory Rate [Bilateral Throughout] Blood Pressure 88/51 88/51 95/61 O2 Sat by Pulse 100 99 98 Oximetry 10/23/21 10/23/21 10/23/21 22:41 22:51 23:00 Temperature Pulse Rate 111 H 110 H 111 H Pulse Rate [ Bilateral Throughout] Pulse Rate [ From Monitor] Respiratory 21 20 20 Rate Respiratory Rate [Bilateral Throughout] Blood Pressure 95/61 95/61 102/60 O2 Sat by Pulse 100 100 Oximetry 10/23/21 10/23/21 10/23/21 23:01 23:10 23:11 Temperature Pulse Rate 112 H 110 H Pulse Rate [ Bilateral Throughout] Pulse Rate [ 110 H From Monitor] Respiratory 20 20 20 Rate Respiratory Rate [Bilateral Throughout] Blood Pressure 102/60 102/60 O2 Sat by Pulse 100 100 100 Oximetry 10/23/21 10/23/21 10/23/21 23:21 23:30 23:41 Temperature Pulse Rate 136 H 134 H 111 H Pulse Rate [ Bilateral Throughout] Pulse Rate [ From Monitor] Respiratory 20 20 20 Rate Respiratory Rate [Bilateral Throughout] Blood Pressure 102/60 88/57 88/57 O2 Sat by Pulse 100 99 100 Oximetry 10/23/21 10/23/21 10/23/21 23:51 23:54 23:57 Temperature 98.5 F Pulse Rate 109 H 112 H Pulse Rate [ Bilateral Throughout] Pulse Rate [ From Monitor] Respiratory 20 Rate Respiratory Rate [Bilateral Throughout] Blood Pressure 88/57 88/57 O2 Sat by Pulse 100 Oximetry 10/24/21 10/24/21 10/24/21 00:00 00:10 00:11 Temperature Pulse Rate 111 H 112 H 135 H Pulse Rate [ Bilateral Throughout] Pulse Rate [ From Monitor] Respiratory 18 20 Rate Respiratory Rate [Bilateral Throughout] Blood Pressure 103/57 103/57 103/57 O2 Sat by Pulse 99 99 Oximetry 10/24/21 10/24/21 10/24/21 00:21 00:30 00:41 Temperature Pulse Rate 111 H 137 H 112 H Pulse Rate [ Bilateral Throughout] Pulse Rate [ From Monitor] Respiratory 20 20 20 Rate Respiratory Rate [Bilateral Throughout] Blood Pressure 103/57 87/57 87/57 O2 Sat by Pulse 99 91 99 Oximetry 10/24/21 10/24/21 10/24/21 00:51 01:00 01:10 Temperature Pulse Rate 111 H 112 H Pulse Rate [ Bilateral Throughout] Pulse Rate [ 110 H From Monitor] Respiratory 20 20 20 Rate Respiratory Rate [Bilateral Throughout] Blood Pressure 87/57 92/58 O2 Sat by Pulse 99 100 Oximetry 10/24/21 10/24/21 10/24/21 01:11 01:21 01:30 Temperature Pulse Rate 112 H 111 H 111 H Pulse Rate [ Bilateral Throughout] Pulse Rate [ From Monitor] Respiratory 20 20 21 Rate Respiratory Rate [Bilateral Throughout] Blood Pressure 92/58 92/58 100/65 O2 Sat by Pulse 100 100 100 Oximetry 10/24/21 10/24/21 10/24/21 01:41 01:51 02:00 Temperature Pulse Rate 110 H 109 H 110 H Pulse Rate [ Bilateral Throughout] Pulse Rate [ From Monitor] Respiratory 20 21 20 Rate Respiratory Rate [Bilateral Throughout] Blood Pressure 100/65 100/65 94/55 O2 Sat by Pulse 100 100 100 Oximetry 10/24/21 10/24/21 10/24/21 02:11 02:15 02:21 Temperature Pulse Rate 109 H 109 H 110 H Pulse Rate [ Bilateral Throughout] Pulse Rate [ From Monitor] Respiratory 20 20 Rate Respiratory Rate [Bilateral Throughout] Blood Pressure 94/55 94/55 O2 Sat by Pulse 100 100 Oximetry 03/10/24/21 10/24/21 02:24 02:30 02:41 Temperature Pulse Rate 109 H 109 H 108 H Pulse Rate [ Bilateral Throughout] Pulse Rate [ From Monitor] Respiratory 20 19 Rate Respiratory Rate [Bilateral Throughout] Blood Pressure 87/55 87/55 O2 Sat by Pulse 100 Oximetry 10/24/21 10/24/21 10/24/21 02:51 03:00 03:11 Temperature Pulse Rate 109 H 108 H 113 H Pulse Rate [ Bilateral Throughout] Pulse Rate [ From Monitor] Respiratory 20 20 20 Rate Respiratory Rate [Bilateral Throughout] Blood Pressure 87/55 92/54 92/54 O2 Sat by Pulse 100 100 100 Oximetry 10/24/21 10/24/21 10/24/21 03:21 03:30 03:41 Temperature Pulse Rate 108 H 108 H 116 H Pulse Rate [ Bilateral Throughout] Pulse Rate [ From Monitor] Respiratory 20 20 14 Rate Respiratory Rate [Bilateral Throughout] Blood Pressure 92/54 96/56 96/56 O2 Sat by Pulse 100 100 100 Oximetry 10/24/21 10/24/21 10/24/21 03:51 03:55 04:00 Temperature 98.3 F Pulse Rate 115 H 119 H 118 H Pulse Rate [ Bilateral Throughout] Pulse Rate [ From Monitor] Respiratory 11 L 11 L Rate Respiratory Rate [Bilateral Throughout] Blood Pressure 96/56 102/60 O2 Sat by Pulse 96 100 Oximetry 10/24/21 10/24/21 10/24/21 04:10 04:11 04:21 Temperature Pulse Rate 115 H 119 H 115 H Pulse Rate [ Bilateral Throughout] Pulse Rate [ From Monitor] Respiratory 14 20 Rate Respiratory Rate [Bilateral Throughout] Blood Pressure 102/60 102/60 102/60 O2 Sat by Pulse 99 98 98 Oximetry 10/24/21 10/24/21 10/24/21 04:28 04:30 04:41 Temperature Pulse Rate 119 H 117 H Pulse Rate [ 114 H Bilateral Throughout] Pulse Rate [ From Monitor] Respiratory 22 19 Rate Respiratory 20 Rate [Bilateral Throughout] Blood Pressure 100/67 100/67 O2 Sat by Pulse 99 99 Oximetry 10/24/21 10/24/21 10/24/21 04:51 05:00 05:04 Temperature Pulse Rate 113 H 118 H 109 H Pulse Rate [ Bilateral Throughout] Pulse Rate [ From Monitor] Respiratory 20 20 Rate Respiratory Rate [Bilateral Throughout] Blood Pressure 100/67 89/63 89/63 O2 Sat by Pulse 100 100 Oximetry 10/24/21 10/24/21 10/24/21 05:11 05:21 05:30 Temperature Pulse Rate 115 H 117 H 114 H Pulse Rate [ Bilateral Throughout] Pulse Rate [ From Monitor] Respiratory 20 20 19 Rate Respiratory Rate [Bilateral Throughout] Blood Pressure 89/63 89/63 90/69 O2 Sat by Pulse 100 100 100 Oximetry 10/24/21 10/24/21 10/24/21 05:41 05:51 05:58 Temperature Pulse Rate 113 H 113 H Pulse Rate [ Bilateral Throughout] Pulse Rate [ From Monitor] Respiratory 20 19 20 Rate Respiratory Rate [Bilateral Throughout] Blood Pressure 90/69 90/69 O2 Sat by Pulse 100 100 100 Oximetry 10/24/21 10/24/21 10/24/21 06:00 06:11 06:21 Temperature Pulse Rate 113 H 114 H 113 H Pulse Rate [ Bilateral Throughout] Pulse Rate [ From Monitor] Respiratory 16 19 20 Rate Respiratory Rate [Bilateral Throughout] Blood Pressure 92/65 92/65 92/65 O2 Sat by Pulse 96 100 100 Oximetry 10/24/21 10/24/21 10/24/21 06:27 06:30 06:41 Temperature Pulse Rate 113 H 113 H 113 H Pulse Rate [ Bilateral Throughout] Pulse Rate [ From Monitor] Respiratory 20 20 Rate Respiratory Rate [Bilateral Throughout] Blood Pressure 100/65 100/65 O2 Sat by Pulse 100 100 Oximetry 10/24/21 10/24/21 10/24/21 06:51 07:00 07:11 Temperature Pulse Rate 113 H 111 H 112 H Pulse Rate [ Bilateral Throughout] Pulse Rate [ From Monitor] Respiratory 20 20 21 Rate Respiratory Rate [Bilateral Throughout] Blood Pressure 100/65 104/64 104/64 O2 Sat by Pulse 100 100 Oximetry 10/24/21 10/24/21 10/24/21 07:21 07:30 07:36 Temperature 98.7 F Pulse Rate 111 H 110 H Pulse Rate [ Bilateral Throughout] Pulse Rate [ From Monitor] Respiratory 19 20 Rate Respiratory Rate [Bilateral Throughout] Blood Pressure 104/64 94/60 O2 Sat by Pulse 100 97 Oximetry 10/24/21 10/24/21 10/24/21 07:41 07:51 08:00 Temperature Pulse Rate 109 H 109 H 109 H Pulse Rate [ 109 H Bilateral Throughout] Pulse Rate [ From Monitor] Respiratory 20 20 20 Rate Respiratory 20 Rate [Bilateral Throughout] Blood Pressure 94/60 94/60 95/63 O2 Sat by Pulse 100 100 100 Oximetry 10/24/21 08:11 Temperature Pulse Rate 109 H Pulse Rate [ Bilateral Throughout] Pulse Rate [ From Monitor] Respiratory 20 Rate Respiratory Rate [Bilateral Throughout] Blood Pressure 95/63 O2 Sat by Pulse 100 Oximetry Constitutional: asleep Eyes: non-icteric Neck: other (6.0 ET tube in stoma) Effort: normal Ascultation: Bilateral: clear Percussion: Bilateral: not dull Cardiovascular: other (sinus tach) Gastrointestinal: normoactive bowel sounds Extremities: no cyanosis, no edema, pulses normal CBC and BMP: 10/24/21 04:13 10/24/21 04:13 ABG, PT/INR, D-dimer: ABG ABG pH 7.242 pH Units (7.350-7.450) L 10/24/21 04:05 ABG pCO2 41.8 mm Hg 10/24/21 04:05 ABG pO2 80.5 mm Hg (80.0-90.0) 10/24/21 04:05 ABG O2 Saturation 97.4 % (95.0-99.0) 10/24/21 04:05 Abnormal lab findings: Abnormal Labs 10/20/21 10/20/21 10/20/21 21:03 21:03 21:03 RBC 2.86 L Hgb 7.7 L Hct 23.6 L MCV 83 L MCH 27 L MCHC RDW 23.0 H Plt Count 535 H Lymph % (Auto) 6.7 L [place] % (Auto) 9.4 H Lymph # (Auto) 0.6 L [place] # (Auto) 0.9 H Seg Neutrophils % 83.5 H APTT 41.4 H ABG pH ABG pO2 ABG HCO3 ABG O2 Saturation ABG Base Excess ABG Hemoglobin Sodium 136 L Chloride Carbon Dioxide 18 L Creatinine 0.7 L Glucose 114 H POC Glucose Lactic Acid Calcium 7.1 L AST 70 H Alkaline Phosphatase 1174 H Total Creatine Kinase Troponin T Total Protein 5.1 L Albumin 2.3 L Triglycerides LDL Cholesterol Direct HDL Cholesterol Ur Specific [place] Crossmatch 10/20/21 10/20/21 10/20/21 21:03 22:30 Unknown RBC Hgb Hct MCV MCH MCHC RDW Plt Count Lymph % (Auto) [place] % (Auto) Lymph # (Auto) [place] # (Auto) Seg Neutrophils % APTT ABG pH ABG pO2 218.0 H ABG HCO3 18.0 L ABG O2 Saturation 99.3 H ABG Base Excess -6.4 L ABG Hemoglobin 7.6 L Sodium Chloride Carbon Dioxide Creatinine Glucose POC Glucose Lactic Acid 3.10 H* Calcium AST Alkaline Phosphatase Total Creatine Kinase Troponin T Total Protein Albumin Triglycerides LDL Cholesterol Direct HDL Cholesterol Ur Specific [place] 1.035 H Crossmatch 10/21/21 10/21/21 10/21/21 04:44 04:44 04:44 RBC 2.63 L Hgb 6.9 L Hct 21.7 L MCV 83 L MCH 26 L MCHC RDW 22.7 H Plt Count 490 H Lymph % (Auto) 7.0 L [place] % (Auto) 9.2 H Lymph # (Auto) 0.5 L [place] # (Auto) Seg Neutrophils % 82.4 H APTT ABG pH ABG pO2 94.2 H ABG HCO3 19.1 L ABG O2 Saturation ABG Base Excess -5.0 L ABG Hemoglobin 6.6 L Sodium Chloride Carbon Dioxide 17 L Creatinine 0.6 L Glucose POC Glucose Lactic Acid Calcium 7.6 L AST Alkaline Phosphatase Total Creatine Kinase Troponin T Total Protein Albumin Triglycerides LDL Cholesterol Direct HDL Cholesterol Ur Specific [place] Crossmatch 10/21/21 10/21/21 10/21/21 07:37 07:37 15:11 RBC Hgb Hct MCV MCH MCHC RDW Plt Count Lymph % (Auto) [place] % (Auto) Lymph # (Auto) [place] # (Auto) Seg Neutrophils % APTT ABG pH ABG pO2 ABG HCO3 ABG O2 Saturation ABG Base Excess ABG Hemoglobin Sodium Chloride Carbon Dioxide Creatinine Glucose POC Glucose Lactic Acid 4.10 H* 2.40 H* Calcium AST Alkaline Phosphatase Total Creatine Kinase Troponin T Total Protein Albumin Triglycerides LDL Cholesterol Direct HDL Cholesterol Ur Specific [place] Crossmatch See Detail 10/21/21 10/22/21 10/22/21 15:23 04:15 04:24 RBC 2.51 L 2.76 L Hgb 6.8 L 7.4 L Hct 20.9 L 23.3 L MCV 83 L MCH 27 L 27 L MCHC RDW 21.6 H 22.0 H Plt Count Lymph % (Auto) 7.1 L [place] % (Auto) Lymph # (Auto) 0.5 L [place] # (Auto) Seg Neutrophils % 84.0 H APTT ABG pH 7.337 L ABG pO2 94.2 H ABG HCO3 19.5 L ABG O2 Saturation ABG Base Excess -5.8 L ABG Hemoglobin 7.2 L Sodium Chloride Carbon Dioxide Creatinine Glucose POC Glucose Lactic Acid Calcium AST Alkaline Phosphatase Total Creatine Kinase Troponin T Total Protein Albumin Triglycerides LDL Cholesterol Direct HDL Cholesterol Ur Specific [place] Crossmatch 10/22/21 10/22/21 10/22/21 04:24 05:11 09:23 RBC Hgb Hct MCV MCH MCHC RDW Plt Count Lymph % (Auto) [place] % (Auto) Lymph # (Auto) [place] # (Auto) Seg Neutrophils % APTT ABG pH ABG pO2 ABG HCO3 ABG O2 Saturation ABG Base Excess ABG Hemoglobin Sodium Chloride 109.2 H Carbon Dioxide 18 L Creatinine 0.5 L Glucose POC Glucose 61 L 69 L Lactic Acid Calcium 7.5 L AST Alkaline Phosphatase Total Creatine Kinase Troponin T Total Protein Albumin Triglycerides LDL Cholesterol Direct HDL Cholesterol Ur Specific [place] Crossmatch 10/23/21 10/23/21 10/23/21 04:06 07:41 07:41 RBC 2.82 L Hgb 7.6 L Hct 24.6 L MCV MCH 27 L MCHC 31 L RDW 21.8 H Plt Count Lymph % (Auto) [place] % (Auto) Lymph # (Auto) [place] # (Auto) Seg Neutrophils % APTT ABG pH 7.202 L ABG pO2 162.4 H ABG HCO3 19.1 L ABG O2 Saturation ABG Base Excess -8.3 L ABG Hemoglobin 7.4 L Sodium 135 L Chloride Carbon Dioxide 16 L Creatinine 0.5 L Glucose POC Glucose Lactic Acid Calcium 7.9 L AST Alkaline Phosphatase Total Creatine Kinase Troponin T Total Protein Albumin Triglycerides LDL Cholesterol Direct HDL Cholesterol Ur Specific [place] Crossmatch 10/23/21 10/24/21 10/24/21 21:38 04:05 04:13 RBC Hgb Hct MCV MCH MCHC RDW Plt Count Lymph % (Auto) [place] % (Auto) Lymph # (Auto) [place] # (Auto) Seg Neutrophils % APTT ABG pH 7.242 L ABG pO2 ABG HCO3 17.6 L ABG O2 Saturation ABG Base Excess -9.1 L ABG Hemoglobin 8.6 L Sodium Chloride Carbon Dioxide Creatinine Glucose POC Glucose Lactic Acid Calcium AST Alkaline Phosphatase Total Creatine Kinase 368 H Troponin T 0.041 H 0.039 H Total Protein Albumin Triglycerides 173 H LDL Cholesterol Direct 33 L HDL Cholesterol 23 L Ur Specific [place] Crossmatch 10/24/21 10/24/21 04:13 04:13 RBC 2.46 L Hgb 6.8 L Hct 21.5 L MCV MCH 27 L MCHC 31 L RDW 21.9 H Plt Count Lymph % (Auto) [place] % (Auto) Lymph # (Auto) [place] # (Auto) Seg Neutrophils % APTT ABG pH ABG pO2 ABG HCO3 ABG O2 Saturation ABG Base Excess ABG Hemoglobin Sodium 134 L Chloride Carbon Dioxide 15 L Creatinine Glucose POC Glucose Lactic Acid Calcium 7.6 L AST Alkaline Phosphatase Total Creatine Kinase Troponin T Total Protein Albumin Triglycerides LDL Cholesterol Direct HDL Cholesterol Ur Specific [place] Crossmatch
[2021-10-24] MEDS: CEFEPIME/NS 1 GM/100 ML 1 GM/100 ML BAG IV SCH ×2 (09:35→15:30)
[2021-10-24] MEDS: HEPARIN 5,000 UNIT/1 ML VIAL SUB-Q SCH ×2 (09:36→21:14)
--- NOTE | 2021-10-24 09:36 | Electrocardiograph Report ---
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
[2021-10-24] MEDS: FAMOTIDINE 20 MG/2 ML INJ IV SCH ×2 (09:37→21:14)
[2021-10-24] MEDS: VANCOMYCIN 1,250 MG in SODIUM CHLORIDE 0.9% 250ML 250 ML IV SCH (09:37)
[2021-10-24 11:57] LABS: Creatine Kinase MB 2.3 ng/mL (0.0-4.0)
--- NOTE | 2021-10-24 14:42 | Progress Note ---
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, chronic respiratory failure s/p trach, sacral stenosis, HTN, SVT admitted with dislodgment of tracheostomy Neuro: h/o chronic pain -Sedated with fentanyl -RASS goal 0 to -1 -Avoid delirium -Reorientation as needed -Maintain sleep-wake cycle -As needed analgesia -Bilateral restraints for safety Cardiac: ST, h/o SVT, HTN -Cardiology consulted, appreciate recommendations -Blood pressure monitoring per protocol -s/p 5.5 L IVF bolus -Of note patient home meds include metoprolol 50mg BID -IV BB with hold parameters Respiratory: Chronic respiratory failure, h/o tracheal stenosis, vocal cord paralysis -CCM consulted, appreciate recommendations -Intubated with a 6.0 ETT in trach on 10/20 in the ED -unable to be converted to trach by surgery -A.m. vent settings: Assist-control/PRVC tidal volume 500, rate 18, PEEP 6, FiO2 60% -See RT notes for titration -A.m. ABG noted -VAP bundle -SPO2 monitoring -CT neck shows soft tissue thickening in the supraglottic trachea above the tracheostomy level with soft tissue thickening surrounding upper tracheal endotracheal tube, diffuse osseous metastasis, bilateral pleural effusions (right > left) GI: Protein calorie malnutrition, elevated alkaline phos and AST -24 hours +3275 mL -PPI -MIVF -Ntr consult for TF -Trend LFTs : Metabolic acidosis -Strict intake and output -Renally dose medications -Avoid nephrotoxic medications -Daily weights ID: Lactic acidosis, ? PNA, Sepsis -meets criteria with LA, tachycardia, possible pna on imaging -Antibiotic therapy with cefepime, vancomycin -Follow-up blood culture -Monitor WBC and temperature curve Endo: NAD -Avoid hypoglycemia -SSI -Accu-Cheks q. 6 Heme: Anemia, h/o anemia of chronic disease -Trend CBC -Transfuse hemoglobin less than 7 -s/p 2 units prbc -Monitor for signs of bleeding -SCDs to BLE while in bed -Heparin subq The high probability of a clinically significant, sudden or life threatening det erioration of the [multi] system(s) required my full and direct attention, intervention and personal management. The aggregate critical care time was [60] minutes. This time is in addition to time spent performing reported procedures but includes the following: [x] Data Review and interpretation [x] Patient assessment and monitoring of vital signs [x] Documentation [x] Medication orders and management Disposition Plan: icu Total Time Spent with Patient (Minutes): 60 History Interval history: This is 66 year old male with Prostate CA with mets to spine s/p radiaiton therapy, chronic resp failure s/p trach (2018), trachal stenosis, HTN, h/o SVT, COVID 19 (06/2021) with moderna vaccine x2, anemia and chronic pain who presented to the ED on 10/20 from his correction after tracheostomy dislodg ement and inability to replace trach via EMS on 15 L NC. In the ED 6.0 OETT was inserted into his tracheostomy and sutured into place. Work-up in the emergency department revealed lactic acidosis, tachycardia. Patient was admitted to the hospitalist service with consults to CCM and general surgery. Hospital course to date: 10/21: Code status changed to DNR, POA brought Living will which is in the chart along with records from correction. LR bolus for tachycardia. Upon review of medical records it was noted that patient was on beta-giovanni. No p.o. access currently. Withholding IV beta-giovanni initiation due to low blood pressure. We will continue antibiotics due to concerning imaging. Neck CT pending. 10/22: Ct neck results noted. Supraglottic stenosis noted as well as diffuse metatatic disease c/w history of prostate ca. Surgical and PCCM perspective noted. Unfortunately, will likely need ENT services if POA decides be aggressive with tracheal stenosis which we do not have in house. Will need to discuss with POA re: GOC and how aggressive they would like to be. Hgb drop noted this AM, transfused one unit. 10/23: DHT placed, consulted NTR, once TF started can wean off dextrose. POA updated by Dr. Vanegas 10/24: Dr. Vanegas spoke to POA who will likely present Monday afternoon and has agreed to transfer patient to hospice. No acute events reported overnight. Metoprolol decreased due to soft blood pressures. Hospitalist Physical - Constitutional Vitals: Temp Pulse Resp BP Pulse Ox 98.0 F 108 H 18 109/79 100 10/24/21 11:39 10/24/21 13:30 10/24/21 13:30 10/24/21 13:30 10/24/21 13:30 General appearance: Present: no acute distress, cachectic - EENT Eyes: Present: PERRL, EOM intact - Neck Neck: Present: supple - Respiratory Respiratory effort: normal Respiratory: bilateral: diminished - Cardiovascular Rhythm: regular Heart Sounds: Present: S1 & S2. Absent: systolic murmur, diastolic murmur - Extremities Extremities: no ischemia, pulses intact, pulses symmetrical, No edema, normal temperature, normal color Peripheral Pulses: within normal limits - Abdominal General gastrointestinal: soft, non-tender, non-distended, normal bowel sounds - Integumentary Integumentary: Present: warm, dry - Psychiatric Psychiatric: other - Neurologic Neurologic: other (sedated, perrl) - Allied Health Allied health notes reviewed: nursing, RT HEART Score - HEART Score Troponin: Troponin T 0.039 ng/mL (0.00-0.029) H 10/24/21 11:26 Results - Labs CBC & Chem 7: 10/24/21 04:13 10/24/21 04:13 Labs: Laboratory Last Values WBC 8.4 K/mm3 (4.5-11.0) 10/24/21 04:13 RBC 2.46 M/mm3 (3.65-5.03) L 10/24/21 04:13 Hgb 6.8 gm/dl (11.8-15.2) L 10/24/21 04:13 Hct 21.5 % (35.5-45.6) L 10/24/21 04:13 MCV 87 fl (84-94) 10/24/21 04:13 MCH 27 pg (28-32) L 10/24/21 04:13 MCHC 31 % (32-34) L 10/24/21 04:13 RDW 21.9 % (13.2-15.2) H 10/24/21 04:13 Plt Count 325 K/mm3 (140-440) 10/24/21 04:13 Lymph % (Auto) 7.1 % (13.4-35.0) L 10/21/21 15:23 Mobile % (Auto) 6.5 % (0.0-7.3) 10/21/21 15:23 Eos % (Auto) 2.0 % (0.0-4.3) 10/21/21 15:23 Baso % (Auto) 0.4 % (0.0-1.8) 10/21/21 15:23 Lymph # (Auto) 0.5 K/mm3 (1.2-5.4) L 10/21/21 15:23 Mobile # (Auto) 0.5 K/mm3 (0.0-0.8) 10/21/21 15: Eos # (Auto) 0.1 K/mm3 (0.0-0.4) 10/21/21 15:23 Baso # (Auto) 0.0 K/mm3 (0.0-0.1) 10/21/21 15: Seg Neutrophils % 84.0 % (40.0-70.0) H 10/21/21 15: Seg Neutrophils # 6.1 K/mm3 (1.8-7.7) 10/21/21 15:23 APTT 41.4 Sec. (24.2-36.6) H 10/20/21 21:03 ABG pH 7.242 pH Units (7.350-7.450) L 10/24/21 04:05 ABG pCO2 41.8 mm Hg 10/24/21 04:05 ABG pO2 80.5 mm Hg (80.0-90.0) 10/24/21 04:05 ABG HCO3 17.6 mmol/L (20.0-26.0) L 10/24/21 04:05 ABG O2 Saturation 97.4 % (95.0-99.0) 10/24/21 04:05 ABG O2 Content 11.7 (0.0-44) 10/24/21 04:05 ABG Base Excess -9.1 mmol/L (-2.0-3.0) L 10/24/21 04:05 ABG Hemoglobin 8.6 gm/dl (14.0-18.0) L 10/24/21 04:05 ABG Carboxyhemoglobin 1.4 % (0.0-5.0) 10/24/21 04:05 ABG Methemoglobin 0.5 % (0.0-1.5) 10/24/21 04:05 Oxyhemoglobin 95.6 % (95.0-99.0) 10/24/21 04:05 FiO2 35 % 10/24/21 04:05 Sodium 134 mmol/L (137-145) L 10/24/21 04:13 Potassium 4.8 mmol/L (3.6-5.0) 10/24/21 04:13 Chloride 106.2 mmol/L (98-107) 10/24/21 04:13 Carbon Dioxide 15 mmol/L (22-30) L 10/24/21 04:13 Anion Gap 18 mmol/L 10/24/21 04:13 BUN 19 mg/dL (9-20) 10/24/21 04:13 Creatinine 0.8 mg/dL (0.8-1.3) D 10/24/21 04:13 Estimated GFR > 60 ml/min 10/24/21 04:13 BUN/Creatinine Ratio 24 % 10/24/21 04:13 Glucose 89 mg/dL (75-100) 10/24/21 04:13 POC Glucose 98 mg/dL (70-105) 10/24/21 11:28 Lactic Acid 2.40 mmol/L (0.7-2.0) H* 10/21/21 15:11 Calcium 7.6 mg/dL (8.4-10.2) L 10/24/21 04:13 Phosphorus 3.30 mg/dL (2.5-4.5) 10/24/21 04:13 Magnesium 1.90 mg/dL (1.7-2.3) 10/24/21 04:13 Total Bilirubin 0.90 mg/dL (0.1-1.2) 10/20/21 21:03 AST 70 units/L (5-40) H 10/20/21 21:03 ALT 7 units/L (7-56) 10/20/21 21:03 Alkaline Phosphatase 1174 units/L (35-129) H 10/20/21 21:03 Total Creatine Kinase 221 units/L (55-170) H 10/24/21 11:26 CK-MB (CK-2) 2.3 ng/mL (0.0-4.0) 10/24/21 11:26 CK-MB (CK-2) Rel Index 1.0 (0-4) 10/24/21 11:26 Troponin T 0.039 ng/mL (0.00-0.029) H 10/24/21 11:26 Total Protein 5.1 g/dL (6.3-8.2) L 10/20/21 21:03 Albumin 2.3 g/dL (3.9-5) L 10/20/21 21:03 Albumin/Globulin Ratio 0.8 % 10/20/21 21:03 Triglycerides 173 mg/dL (2-149) H 10/23/21 21:38 Cholesterol 99 mg/dL (50-199) 10/23/21 21:38 LDL Cholesterol Direct 33 mg/dL (50-130) L 10/23/21 21:38 HDL Cholesterol 23 mg/dL (40-59) L 10/23/21 21:38 Cholesterol/HDL Ratio 4.30 % 10/23/21 21:38 Urine Color [place] (Yellow) 10/20/21 Unknown Urine Turbidity Clear (Clear) 10/20/21 Unknown Urine pH 5.0 (5.0-7.0) 10/20/21 Unknown Ur Specific [place] 1.035 (1.003-1.030) H 10/20/21 Unknown Urine Protein 30 mg/dl mg/dL (Negative) 10/20/21 Unknown Urine Glucose (UA) Neg mg/dL (Negative) 10/20/21 Unknown Urine Ketones Neg mg/dL (Negative) 10/20/21 Unknown Urine Blood Neg (Negative) 10/20/21 Unknown Urine Nitrite Neg (Negative) 10/20/21 Unknown Ur Reducing Substances Not Reportable 10/20/21 Unknown Urine Bilirubin Neg (Negative) 10/20/21 Unknown Urine Ictotest Not Reportable 10/20/21 Unknown Urine Urobilinogen < 2.0 mg/dL (<2.0) 10/20/21 Unknown Ur Leukocyte Esterase Negative (Negative) 10/20/21 Unknown Urine WBC (Auto) 2.0 /HPF (0.0-6.0) 10/20/21 Unknown Urine RBC (Auto) < 1.0 /HPF (0.0-6.0) 10/20/21 Unknown Urine Mucus Few /HPF 10/20/21 Unknown Blood Type A POSITIVE 10/21/21 07:37 Antibody Screen Negative 10/21/21 07:37 Crossmatch See Detail 10/21/21 07:37 Microbiology: Microbiology 10/20/21 21:03 Peripheral/Venous Blood Culture - Preliminary NO GROWTH AFTER 72 HOURS 10/20/21 21:03 Peripheral/Venous Blood Culture - Preliminary NO GROWTH AFTER 72 HOURS [place]/IV: Voiding Method Indwelling Catheter Active Medications - Current Medications Current Medications: Generic Name Dose Route Start Last Admin Trade Name Freq PRN Reason Stop Dose Admin Acetaminophen 650 mg 10/20/21 23:57 10/21/21 16:01 Acetaminophen 325 Mg Tab PO 650 mg Q4H PRN Administration Pain MILD(1-3)/Fever >100.5/RIVAS Acetaminophen 650 mg 10/21/21 10:09 10/22/21 09:47 Acetaminophen 650 Mg Rect Supp MO 650 mg Q4H PRN Administration Pain, Mild (1-3) Albuterol 2.5 mg 10/20/21 23:57 Albuterol 2.5 Mg/3 Ml Nebu IH Q3HRT PRN Shortness Of Breath Albuterol/Ipratropium 1 ampul 10/21/21 02:00 10/24/21 08:26 Ipratropium/Albuterol Sulfate 3 Ml Ampul.Neb IH 1 ampul Q6HRT [place] Administration Dextrose 0 ml 10/21/21 15:11 10/23/21 00:55 Dextrose 10% *Hypoglycemia IV 250 ml PRN PRN Administration Hypoglycemia Famotidine 20 mg 10/21/21 10:00 10/24/21 09:37 Famotidine 20 Mg/2 Ml Inj IV 20 mg BID [place] Administration Fentanyl 50 mcg 10/20/21 20:44 10/20/21 22:01 Fentanyl 100 Mcg/2 Ml Inj IV 50 mcg Q10MIN PRN Administration ANALGESIA Heparin Sodium (Porcine) 5,000 unit 10/21/21 10:00 10/24/21 09:36 Heparin 5,000 Unit/1 Ml Vial SUB-Q 5,000 unit Q12HR [place] Administration Hydromorphone HCl 0.5 mg 10/20/21 23:57 10/23/21 05:54 Hydromorphone 1 Mg/1 Ml Inj IV 0.5 mg Q3H PRN Administration Pain , Severe (7-10) Fentanyl Citrate 2,000 mcg in 100 mls @ 8.765 mls/hr 10/20/21 21:00 10/24/21 12:35 Fentanyl Drip Premix IV 2 mcg/kg/hr TITR [place] 17.53 mls/hr Administration Protocol 1 MCG/KG/HR Cefepime HCl 1 gm in 100 mls @ 200 mls/hr 10/21/21 08:00 10/24/21 09:35 Cefepime/Ns 1 Gm/100 Ml IV 200 mls/hr Q8H [place] Administration Protocol Vancomycin HCl 1,250 mg/ 275 mls @ 166.667 mls/hr 10/21/21 10:00 10/24/21 09:37 Sodium Chloride IV 166.667 mls/hr Q12H [place] Administration Sodium Chloride 500 mls @ 0 mls/hr 10/21/21 16:25 Nacl 0.9% 500 Ml IV ONCE [place] As Directed Dextrose/Sodium Chloride 1,000 mls @ 125 mls/hr 10/23/21 21:25 10/24/21 12:36 D5/0.45ns IV 125 mls/hr DIRECT [place] Administration Insulin Human Regular 0 units 10/21/21 16:00 10/24/21 09:35 Insulin Regular, Human 100 Units/1 Ml SUB-Q Not Given Q6H [facility] Protocol Metoprolol Tartrate 2.5 mg 10/24/21 12:00 10/24/21 12:36 Metoprolol Tartrate 5 Mg/5 Ml Inj IV Not Given Q6HR [place] Morphine Sulfate 2 mg 10/20/21 23:57 Morphine 2 Mg/1 Ml Inj IV Q4H PRN Pain, Moderate (4-6) Ondansetron HCl 4 mg 10/20/21 23:57 Ondansetron 4 Mg/2 Ml Inj IV Q8H PRN Nausea And Vomiting Sodium Chloride 10 ml 10/21/21 10:00 10/24/21 09:37 Sodium Chloride 0.9% 10 Ml Flush Syringe IV 10 ml BID [place] Administration Sodium Chloride 10 ml 10/20/21 23:57 Sodium Chloride 0.9% 10 Ml Flush Syringe IV PRN PRN LINE FLUSH Nutrition/Malnutrition Assess - Dietary Evaluation Nutrition/Malnutrition Findings: Nutrition Notes Start: 10/21/21 17:22 Freq: Status: Active Protocol: Document 10/21/21 17:22 FELECIA (Rec: 10/21/21 17:35 FELECIA [id number]) Nutrition Notes Need for Assessment generated from: MD Order Initial or Follow up Brief Note Current Diagnosis Sepsis,Respiratory Failure Other Pertinent Diagnosis Tracheostomy malfunction, Anemia, Metastatic Cancer, Weakness. Current Diet NPO (since 10/20 23:58). Height 5 ft 10 in Weight 80 kg [place] Body Weight (kg) 75.45 BMI 25.2 Intake Prior to Admission Good Weight change and time frame POt denies having loss body weight [employer]. Weight Status Appropriate Subjective/Other Information RD consult for evaluation of nutritional intake. Pt is currently on NPO, evaluation of nutritional intake cannot be performed. Will assess at F/U. Pt on mechanical ventilation through tracheostomy. Percent of energy/protein needs met: Pt currently on NPO. Nutrition Intervention Follow-Up By: 10/28/21 Additional Comments When pertinent, start monitoring food tolerance, %PO intake of meals, and BM.
[2021-10-25] MEDS: VANCOMYCIN 1,250 MG in SODIUM CHLORIDE 0.9% 250ML 250 ML IV SCH (00:03)
[2021-10-25] MEDS: CEFEPIME/NS 1 GM/100 ML 1 GM/100 ML BAG IV SCH (02:00)
--- NOTE | 2021-10-25 02:19 | XRay Report ---
CHEST 1 VIEW INDICATION / CLINICAL INFORMATION: follow up respiratory failure. COMPARISON: Chest x-ray 10/24/2021 FINDINGS: SUPPORT DEVICES: Tubes and lines appear stable. HEART / MEDIASTINUM: No change LUNGS / PLEURA: No significant interval change. No pneumothorax. ADDITIONAL FINDINGS: Diffuse osseous disease unchanged. IMPRESSION: 1. No adverse interval change in the chest. Stable tubes and lines. Signer Name: Dhruv Johansen II, MD Signed: 10/25/2021 2:15 AM Workstation Name: [id number]
[2021-10-25] MEDS: INSULIN REGULAR, HUMAN 100 UNITS/1 ML SUB-Q SCH ×3 (04:30→17:05)
[2021-10-25 04:37] LABS: ABG Base Excess -10.3 mmol/L (-2.0-3.0); ABG HCO3 15.2 mmol/L (20.0-26.0); ABG Methemoglobin 0.6 % (0.0-1.5); ABG Oxygen Saturation 98.2 % (95.0-99.0); ABG PCO2 31.8 mm Hg; ABG PH 7.297 pH Units (7.350-7.450)
[2021-10-25] MEDS: METOPROLOL TARTRATE 5 MG/5 ML INJ IV SCH ×3 (05:00→17:36)
[2021-10-25] MEDS: IPRATROPIUM/ALBUTEROL SULFATE 3 ML AMPUL.NEB IH SCH ×3 (05:04→14:07)
[2021-10-25] MEDS: fentaNYL DRIP Premix 2,000 MCG/100 ML BAG IV SCH ×2 (09:18→19:17)
[2021-10-25] MEDS: HEPARIN 5,000 UNIT/1 ML VIAL SUB-Q SCH ×2 (09:21→22:24)
[2021-10-25] MEDS: D5W/0.45% NACL 1,000 ML IV SCH (09:47)
[2021-10-25] MEDS ORDERED: FAMOTIDINE 20 MG TAB FEEDTUBE SCH (10:00)
--- NOTE | 2021-10-25 14:47 | Progress Note ---
Assessment and Plan 66 y/o male with chronic respiratory failure, admitted with dislodgement of trach. 10/25/21: Continue supportive/comfort measures. To hospice tomorrow. 10/22/21: Patient with completely occluded airway proxmial/caudal to the 6.0 ET tube going through stoma. Per surgery here, they are not able to place trach and suggest transfer. I am considering calling his POA and discussing comfort measures given this patient has metastatic cancer and because this was not done with contrast, rads states they cannot tell exactly what type if tissue is occluding airway but they are concerned for tumor vs some inflammatory tissue. I personally do no think another institution with ENT or Thoracic would accept this patient knowing his overall prognosis. Continue supportive measures for now. Called the Rehab/detention doc who looked up patient. 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 I have spoken with general surgery about this as well. Will do the followin. Attempt to obtain records from [place], especially regarding the tracheal stenosis and the level of stenosis. 2. Will obtain CT of neck here, noncontrast to see if we can evaluate the level 3. Consider attempting to transfer back to [place] if gen surge not able to help with airway or to an institution that has ENT care 4. Tachycardia is sinus. Patient is in pain but likely is volume deplete as well. He has gotten one unit of blood and will give several boluses of fluids now and reassess as tolerated. 5. Anemia, likely from chronic disease. Agree with transfusion but would have given 2 units. 6. Pain control 7. Guarded prognosis. CCT 31 minutes. Subjective Date of service: 10/25/21 Interval history: No acute events. POA has chosen an inpatient hospice facility. Objective Vital Signs - 12hr 10/25/21 10/25/21 10/25/21 02:51 03:00 03:11 Temperature Pulse Rate 114 H 115 H 115 H Pulse Rate [ Bilateral Throughout] Pulse Rate [ From Monitor] Respiratory 19 20 19 Rate Respiratory Rate [Bilateral Throughout] Respiratory Rate [general bone pain] Blood Pressure 98/62 92/68 92/68 O2 Sat by Pulse 100 100 100 Oximetry 10/25/21 10/25/21 10/25/21 03:21 03:30 03:40 Temperature 98.7 F Pulse Rate 113 H 111 H Pulse Rate [ Bilateral Throughout] Pulse Rate [ From Monitor] Respiratory 16 20 Rate Respiratory Rate [Bilateral Throughout] Respiratory Rate [general bone pain] Blood Pressure 92/68 97/54 O2 Sat by Pulse 100 Oximetry 10/25/21 10/25/21 10/25/21 03:41 03:51 04:00 Temperature Pulse Rate 112 H 110 H 111 H Pulse Rate [ Bilateral Throughout] Pulse Rate [ From Monitor] Respiratory 21 17 18 Rate Respiratory Rate [Bilateral Throughout] Respiratory Rate [general bone pain] Blood Pressure 97/54 97/54 99/58 O2 Sat by Pulse 100 100 100 Oximetry 10/25/21 10/25/21 10/25/21 04:11 04:21 04:30 Temperature Pulse Rate 115 H 112 H 111 H Pulse Rate [ Bilateral Throughout] Pulse Rate [ From Monitor] Respiratory 18 7 L 7 L Rate Respiratory Rate [Bilateral Throughout] Respiratory Rate [general bone pain] Blood Pressure 109/70 109/70 106/56 O2 Sat by Pulse 100 100 Oximetry 10/25/21 10/25/21 10/25/21 04:41 04:51 05:00 Temperature Pulse Rate 110 H 116 H 111 H Pulse Rate [ Bilateral Throughout] Pulse Rate [ From Monitor] Respiratory 8 L 19 9 L Rate Respiratory Rate [Bilateral Throughout] Respiratory Rate [general bone pain] Blood Pressure 106/56 106/56 99/58 O2 Sat by Pulse 100 99 Oximetry 10/25/21 10/25/21 10/25/21 05:02 05:11 05:21 Temperature Pulse Rate 111 H 111 H Pulse Rate [ 110 H Bilateral Throughout] Pulse Rate [ From Monitor] Respiratory 8 L 10 L Rate Respiratory 20 Rate [Bilateral Throughout] Respiratory Rate [general bone pain] Blood Pressure 99/58 99/58 O2 Sat by Pulse 100 100 Oximetry 10/25/21 10/25/21 10/25/21 05:30 05:41 05:51 Temperature Pulse Rate 111 H 113 H 112 H Pulse Rate [ Bilateral Throughout] Pulse Rate [ From Monitor] Respiratory 9 L 17 15 Rate Respiratory Rate [Bilateral Throughout] Respiratory Rate [general bone pain] Blood Pressure 104/66 104/66 104/66 O2 Sat by Pulse 100 100 100 Oximetry 10/25/21 10/25/21 10/25/21 06:00 06:11 06:20 Temperature Pulse Rate 112 H 111 H 110 H Pulse Rate [ Bilateral Throughout] Pulse Rate [ From Monitor] Respiratory 13 8 L 8 L Rate Respiratory Rate [Bilateral Throughout] Respiratory Rate [general bone pain] Blood Pressure 96/59 96/59 96/59 O2 Sat by Pulse 100 100 100 Oximetry 10/25/21 10/25/21 10/25/21 06:30 06:40 06:50 Temperature Pulse Rate 110 H 110 H 111 H Pulse Rate [ Bilateral Throughout] Pulse Rate [ From Monitor] Respiratory 13 13 12 Rate Respiratory Rate [Bilateral Throughout] Respiratory Rate [general bone pain] Blood Pressure 100/58 100/58 100/58 O2 Sat by Pulse 100 100 Oximetry 10/25/21 10/25/21 10/25/21 07:00 07:06 07:10 Temperature 99.3 F Pulse Rate 112 H 112 H Pulse Rate [ Bilateral Throughout] Pulse Rate [ From Monitor] Respiratory 19 21 Rate Respiratory Rate [Bilateral Throughout] Respiratory Rate [general bone pain] Blood Pressure 104/66 100/58 O2 Sat by Pulse 100 100 Oximetry 10/25/21 10/25/21 10/25/21 07:20 07:30 07:40 Temperature Pulse Rate 111 H 110 H 113 H Pulse Rate [ Bilateral Throughout] Pulse Rate [ From Monitor] Respiratory 16 12 15 Rate Respiratory Rate [Bilateral Throughout] Respiratory Rate [general bone pain] Blood Pressure 100/58 93/61 93/61 O2 Sat by Pulse 100 100 Oximetry 10/25/21 10/25/21 10/25/21 07:50 08:00 08:10 Temperature Pulse Rate 110 H 110 H 110 H Pulse Rate [ Bilateral Throughout] Pulse Rate [ 112 H From Monitor] Respiratory 11 L 27 H 12 Rate Respiratory Rate [Bilateral Throughout] Respiratory Rate [general bone pain] Blood Pressure 93/61 104/68 104/68 O2 Sat by Pulse 100 100 100 Oximetry 10/25/21 10/25/21 10/25/21 08:20 08:30 08:40 Temperature Pulse Rate 112 H 110 H 109 H Pulse Rate [ Bilateral Throughout] Pulse Rate [ From Monitor] Respiratory 20 16 13 Rate Respiratory Rate [Bilateral Throughout] Respiratory Rate [general bone pain] Blood Pressure 104/68 114/63 114/63 O2 Sat by Pulse 100 100 Oximetry 10/25/21 10/25/21 10/25/21 08:41 08:50 08:53 Temperature Pulse Rate 110 H 111 H Pulse Rate [ 110 H Bilateral Throughout] Pulse Rate [ From Monitor] Respiratory 15 Rate Respiratory 23 Rate [Bilateral Throughout] Respiratory Rate [general bone pain] Blood Pressure 114/63 114/63 O2 Sat by Pulse 100 100 Oximetry 10/25/21 10/25/21 10/25/21 09:00 09:10 09:20 Temperature Pulse Rate 109 H 110 H 111 H Pulse Rate [ Bilateral Throughout] Pulse Rate [ From Monitor] Respiratory 11 L 12 14 Rate Respiratory Rate [Bilateral Throughout] Respiratory Rate [general bone pain] Blood Pressure 109/62 109/62 109/62 O2 Sat by Pulse 100 100 100 Oximetry 10/25/21 10/25/21 10/25/21 09:30 09:40 09:50 Temperature Pulse Rate 126 H 117 H 117 H Pulse Rate [ Bilateral Throughout] Pulse Rate [ From Monitor] Respiratory 23 19 23 Rate Respiratory Rate [Bilateral Throughout] Respiratory Rate [general bone pain] Blood Pressure 109/62 139/83 139/83 O2 Sat by Pulse 97 99 100 Oximetry 10/25/21 10/25/21 10/25/21 10:00 10:10 10:20 Temperature Pulse Rate 113 H 113 H 113 H Pulse Rate [ Bilateral Throughout] Pulse Rate [ From Monitor] Respiratory 12 18 15 Rate Respiratory Rate [Bilateral Throughout] Respiratory 26 H Rate [general bone pain] Blood Pressure 125/72 125/72 125/72 O2 Sat by Pulse 100 100 100 Oximetry 10/25/21 10/25/21 10/25/21 10:30 10:40 10:50 Temperature Pulse Rate 113 H 113 H 113 H Pulse Rate [ Bilateral Throughout] Pulse Rate [ From Monitor] Respiratory 11 L 14 14 Rate Respiratory Rate [Bilateral Throughout] Respiratory Rate [general bone pain] Blood Pressure 114/67 114/67 114/67 O2 Sat by Pulse 100 100 100 Oximetry 10/25/21 10/25/21 10/25/21 11:00 11:10 11:20 Temperature Pulse Rate 112 H 112 H 115 H Pulse Rate [ Bilateral Throughout] Pulse Rate [ From Monitor] Respiratory 16 10 L 17 Rate Respiratory Rate [Bilateral Throughout] Respiratory Rate [general bone pain] Blood Pressure 111/63 111/63 111/63 O2 Sat by Pulse 100 100 Oximetry 10/25/21 10/25/21 10/25/21 11:30 11:40 11:50 Temperature 99.5 F Pulse Rate 117 H 113 H 112 H Pulse Rate [ Bilateral Throughout] Pulse Rate [ From Monitor] Respiratory 18 17 11 L Rate Respiratory Rate [Bilateral Throughout] Respiratory Rate [general bone pain] Blood Pressure 111/63 154/69 154/69 O2 Sat by Pulse 100 100 100 Oximetry 10/25/21 10/25/21 10/25/21 12:00 12:10 12:20 Temperature Pulse Rate 112 H 111 H 111 H Pulse Rate [ Bilateral Throughout] Pulse Rate [ 115 H From Monitor] Respiratory 26 H 12 15 Rate Respiratory Rate [Bilateral Throughout] Respiratory Rate [general bone pain] Blood Pressure 109/68 109/68 109/68 O2 Sat by Pulse 100 100 100 Oximetry 10/25/21 10/25/21 10/25/21 12:30 12:32 12:53 Temperature Pulse Rate 111 H 111 H 115 H Pulse Rate [ Bilateral Throughout] Pulse Rate [ From Monitor] Respiratory 10 L Rate Respiratory Rate [Bilateral Throughout] Respiratory Rate [general bone pain] Blood Pressure 107/68 107/68 107/68 O2 Sat by Pulse 100 100 Oximetry 10/25/21 10/25/21 10/25/21 13:00 13:30 14:00 Temperature Pulse Rate 102 H 101 H 102 H Pulse Rate [ Bilateral Throughout] Pulse Rate [ From Monitor] Respiratory 14 17 12 Rate Respiratory Rate [Bilateral Throughout] Respiratory Rate [general bone pain] Blood Pressure 100/63 91/64 99/64 O2 Sat by Pulse 97 100 Oximetry 10/25/21 14:30 Temperature Pulse Rate 105 H Pulse Rate [ Bilateral Throughout] Pulse Rate [ From Monitor] Respiratory 13 Rate Respiratory Rate [Bilateral Throughout] Respiratory Rate [general bone pain] Blood Pressure 118/76 O2 Sat by Pulse 100 Oximetry Constitutional: asleep Eyes: non-icteric Neck: other (6.0 ET tube in stoma) Effort: normal Ascultation: Bilateral: clear Percussion: Bilateral: not dull Cardiovascular: other (sinus tach) Gastrointestinal: normoactive bowel sounds Extremities: no cyanosis, no edema, pulses normal CBC and BMP: 10/24/21 04:13 10/24/21 04:13 ABG, PT/INR, D-dimer: ABG ABG pH 7.297 pH Units (7.350-7.450) L 10/25/21 04:00 ABG pCO2 31.8 mm Hg 10/25/21 04:00 ABG pO2 121.0 mm Hg (80.0-90.0) H 10/25/21 04:00 ABG O2 Saturation 98.2 % (95.0-99.0) 10/25/21 04:00 Abnormal lab findings: Abnormal Labs 10/20/21 10/20/21 10/20/21 21:03 21:03 21:03 RBC 2.86 L Hgb 7.7 L Hct 23.6 L MCV 83 L MCH 27 L MCHC RDW 23.0 H Plt Count 535 H Lymph % (Auto) 6.7 L [place] % (Auto) 9.4 H Lymph # (Auto) 0.6 L [place] # (Auto) 0.9 H Seg Neutrophils % 83.5 H APTT 41.4 H ABG pH ABG pO2 ABG HCO3 ABG O2 Saturation ABG Base Excess ABG Hemoglobin Sodium 136 L Chloride Carbon Dioxide 18 L Creatinine 0.7 L Glucose 114 H POC Glucose Lactic Acid Calcium 7.1 L AST 70 H Alkaline Phosphatase 1174 H Total Creatine Kinase Troponin T Total Protein 5.1 L Albumin 2.3 L Triglycerides LDL Cholesterol Direct HDL Cholesterol Ur Specific [place] Vancomycin Trough Crossmatch 10/20/21 10/20/21 10/20/21 21:03 22:30 Unknown RBC Hgb Hct MCV MCH MCHC RDW Plt Count Lymph % (Auto) [place] % (Auto) Lymph # (Auto) [place] # (Auto) Seg Neutrophils % APTT ABG pH ABG pO2 218.0 H ABG HCO3 18.0 L ABG O2 Saturation 99.3 H ABG Base Excess -6.4 L ABG Hemoglobin 7.6 L Sodium Chloride Carbon Dioxide Creatinine Glucose POC Glucose Lactic Acid 3.10 H* Calcium AST Alkaline Phosphatase Total Creatine Kinase Troponin T Total Protein Albumin Triglycerides LDL Cholesterol Direct HDL Cholesterol Ur Specific [place] 1.035 H Vancomycin Trough Crossmatch 10/21/21 10/21/21 10/21/21 04:44 04:44 04:44 RBC 2.63 L Hgb 6.9 L Hct 21.7 L MCV 83 L MCH 26 L MCHC RDW 22.7 H Plt Count 490 H Lymph % (Auto) 7.0 L [place] % (Auto) 9.2 H Lymph # (Auto) 0.5 L [place] # (Auto) Seg Neutrophils % 82.4 H APTT ABG pH ABG pO2 94.2 H ABG HCO3 19.1 L ABG O2 Saturation ABG Base Excess -5.0 L ABG Hemoglobin 6.6 L Sodium Chloride Carbon Dioxide 17 L Creatinine 0.6 L Glucose POC Glucose Lactic Acid Calcium 7.6 L AST Alkaline Phosphatase Total Creatine Kinase Troponin T Total Protein Albumin Triglycerides LDL Cholesterol Direct HDL Cholesterol Ur Specific [place] Vancomycin Trough Crossmatch 10/21/21 10/21/21 10/21/21 07:37 07:37 15:11 RBC Hgb Hct MCV MCH MCHC RDW Plt Count Lymph % (Auto) [place] % (Auto) Lymph # (Auto) [place] # (Auto) Seg Neutrophils % APTT ABG pH ABG pO2 ABG HCO3 ABG O2 Saturation ABG Base Excess ABG Hemoglobin Sodium Chloride Carbon Dioxide Creatinine Glucose POC Glucose Lactic Acid 4.10 H* 2.40 H* Calcium AST Alkaline Phosphatase Total Creatine Kinase Troponin T Total Protein Albumin Triglycerides LDL Cholesterol Direct HDL Cholesterol Ur Specific [place] Vancomycin Trough Crossmatch See Detail 10/21/21 10/22/21 10/22/21 15:23 04:15 04:24 RBC 2.51 L 2.76 L Hgb 6.8 L 7.4 L Hct 20.9 L 23.3 L MCV 83 L MCH 27 L 27 L MCHC RDW 21.6 H 22.0 H Plt Count Lymph % (Auto) 7.1 L [place] % (Auto) Lymph # (Auto) 0.5 L [place] # (Auto) Seg Neutrophils % 84.0 H APTT ABG pH 7.337 L ABG pO2 94.2 H ABG HCO3 19.5 L ABG O2 Saturation ABG Base Excess -5.8 L ABG Hemoglobin 7.2 L Sodium Chloride Carbon Dioxide Creatinine Glucose POC Glucose Lactic Acid Calcium AST Alkaline Phosphatase Total Creatine Kinase Troponin T Total Protein Albumin Triglycerides LDL Cholesterol Direct HDL Cholesterol Ur Specific [place] Vancomycin Trough Crossmatch 10/22/21 10/22/21 10/22/21 04:24 05:11 09:23 RBC Hgb Hct MCV MCH MCHC RDW Plt Count Lymph % (Auto) [place] % (Auto) Lymph # (Auto) [place] # (Auto) Seg Neutrophils % APTT ABG pH ABG pO2 ABG HCO3 ABG O2 Saturation ABG Base Excess ABG Hemoglobin Sodium Chloride 109.2 H Carbon Dioxide 18 L Creatinine 0.5 L Glucose POC Glucose 61 L 69 L Lactic Acid Calcium 7.5 L AST Alkaline Phosphatase Total Creatine Kinase Troponin T Total Protein Albumin Triglycerides LDL Cholesterol Direct HDL Cholesterol Ur Specific [place] Vancomycin Trough Crossmatch 10/23/21 10/23/21 10/23/21 04:06 07:41 07:41 RBC 2.82 L Hgb 7.6 L Hct 24.6 L MCV MCH 27 L MCHC 31 L RDW 21.8 H Plt Count Lymph % (Auto) [place] % (Auto) Lymph # (Auto) [place] # (Auto) Seg Neutrophils % APTT ABG pH 7.202 L ABG pO2 162.4 H ABG HCO3 19.1 L ABG O2 Saturation ABG Base Excess -8.3 L ABG Hemoglobin 7.4 L Sodium 135 L Chloride Carbon Dioxide 16 L Creatinine 0.5 L Glucose POC Glucose Lactic Acid Calcium 7.9 L AST Alkaline Phosphatase Total Creatine Kinase Troponin T Total Protein Albumin Triglycerides LDL Cholesterol Direct HDL Cholesterol Ur Specific [place] Vancomycin Trough Crossmatch 10/23/21 10/24/21 10/24/21 21:38 04:05 04:13 RBC Hgb Hct MCV MCH MCHC RDW Plt Count Lymph % (Auto) [place] % (Auto) Lymph # (Auto) [place] # (Auto) Seg Neutrophils % APTT ABG pH 7.242 L ABG pO2 ABG HCO3 17.6 L ABG O2 Saturation ABG Base Excess -9.1 L ABG Hemoglobin 8.6 L Sodium Chloride Carbon Dioxide Creatinine Glucose POC Glucose Lactic Acid Calcium AST Alkaline Phosphatase Total Creatine Kinase 368 H 354 H Troponin T 0.041 H 0.039 H Total Protein Albumin Triglycerides 173 H LDL Cholesterol Direct 33 L HDL Cholesterol 23 L Ur Specific [place] Vancomycin Trough Crossmatch 10/24/21 10/24/21 10/24/21 04:13 04:13 11:26 RBC 2.46 L Hgb 6.8 L Hct 21.5 L MCV MCH 27 L MCHC 31 L RDW 21.9 H Plt Count Lymph % (Auto) [place] % (Auto) Lymph # (Auto) [place] # (Auto) Seg Neutrophils % APTT ABG pH ABG pO2 ABG HCO3 ABG O2 Saturation ABG Base Excess ABG Hemoglobin Sodium 134 L Chloride Carbon Dioxide 15 L Creatinine Glucose POC Glucose Lactic Acid Calcium 7.6 L AST Alkaline Phosphatase Total Creatine Kinase 221 H Troponin T 0.039 H Total Protein Albumin Triglycerides LDL Cholesterol Direct HDL Cholesterol Ur Specific [place] Vancomycin Trough Crossmatch 10/24/21 10/24/21 10/24/21 21:07 22:30 23:22 RBC Hgb Hct MCV MCH MCHC RDW Plt Count Lymph % (Auto) [place] % (Auto) Lymph # (Auto) [place] # (Auto) Seg Neutrophils % APTT ABG pH ABG pO2 ABG HCO3 ABG O2 Saturation ABG Base Excess ABG Hemoglobin Sodium Chloride Carbon Dioxide Creatinine Glucose POC Glucose 117 H 134 H Lactic Acid Calcium AST Alkaline Phosphatase Total Creatine Kinase Troponin T Total Protein Albumin Triglycerides LDL Cholesterol Direct HDL Cholesterol Ur Specific [place] Vancomycin Trough 30.1 H Crossmatch 10/25/21 10/25/21 03:21 04:00 RBC Hgb Hct MCV MCH MCHC RDW Plt Count Lymph % (Auto) [place] % (Auto) Lymph # (Auto) [place] # (Auto) Seg Neutrophils % APTT ABG pH 7.297 L ABG pO2 121.0 H ABG HCO3 15.2 L ABG O2 Saturation ABG Base Excess -10.3 L ABG Hemoglobin 6.9 L Sodium Chloride Carbon Dioxide Creatinine Glucose POC Glucose 136 H Lactic Acid Calcium AST Alkaline Phosphatase Total Creatine Kinase Troponin T Total Protein Albumin Triglycerides LDL Cholesterol Direct HDL Cholesterol Ur Specific [place] Vancomycin Trough Crossmatch
--- NOTE | 2021-10-25 16:04 | Progress Note ---
Assessment and Plan Assessment and plan: This is a 66-year-old male with prostate cancer with mets to spine, chronic respiratory failure s/p trach, Tracheal stenosis, HTN, SVT admitted with dislodgment of tracheostomy s/p 6.0 OETT inserted into the stoma and sutured in placed Hospital course to date: 10/21: Code status changed to DNR, POA brought Living will which is in the chart along with records from alf. LR bolus for tachycardia. Upon review of medical records it was noted that patient was on beta-giovanni. No p.o. access currently. Withholding IV beta-giovanni initiation due to low blood pressure. We will continue antibiotics due to concerning imaging. Neck CT pending. 10/22: Ct neck results noted. Supraglottic stenosis noted as well as diffuse metatatic disease c/w history of prostate ca. Surgical and PCCM perspective noted. Unfortunately, will likely need ENT services if POA decides be aggressive with tracheal stenosis which we do not have in house. Will need to discuss with POA re: GOC and how aggressive they would like to be. Hgb drop noted this AM, transfused one unit. 10/23: DHT placed, consulted NTR, once TF started can wean off dextrose. POA updated by Dr. Vanegas 10/24: Dr. Vanegas spoke to POA who will likely present Monday afternoon and has agreed to transfer patient to hospice. No acute events reported overnight. Metoprolol decreased due to soft blood pressures. 10/25: Plan for inpatient hospice tomorrow. Continue current supportive care Neuro: h/o chronic pain -Sedated with fentanyl -RASS goal 0 to -1 -Avoid delirium -Reorientation as needed -Maintain sleep-wake cycle -As needed analgesia -Bilateral restraints for safety Cardiac: ST, h/o SVT, HTN -Cardiology consulted, appreciate recommendations -Blood pressure monitoring per protocol -s/p 5.5 L IVF bolus -Of note patient home meds include metoprolol 50mg BID -IV BB with hold parameters Respiratory: Chronic respiratory failure, h/o tracheal stenosis, vocal cord paralysis -CCM consulted, appreciate recommendations -Intubated with a 6.0 ETT in trach on 10/20 in the ED -unable to be converted to trach by surgery -A.m. vent settings: Assist-control/PRVC tidal volume 500, rate 18, PEEP 6, FiO2 30% -See RT notes for titration -A.m. ABG noted -VAP bundle -SPO2 monitoring -CT neck shows soft tissue thickening in the supraglottic trachea above the tracheostomy level with soft tissue thickening surrounding upper tracheal endotracheal tube, diffuse osseous metastasis, bilateral pleural effusions (right > left) GI: Protein calorie malnutrition, elevated alkaline phos and AST -24 hours +3275 mL -PPI -MIVF -Ntr consult for TF -Trend LFTs : Metabolic acidosis -Strict intake and output -Renally dose medications -Avoid nephrotoxic medications -Daily weights ID: Lactic acidosis, ? PNA, Sepsis -meets criteria with LA, tachycardia, possible pna on imaging -Antibiotic therapy with cefepime, vancomycin -Follow-up blood culture -Monitor WBC and temperature curve Endo: NAD -Avoid hypoglycemia -SSI -Accu-Cheks q. 6 Heme: Anemia, h/o anemia of chronic disease -Trend CBC -Transfuse hemoglobin less than 7 -s/p 2 units prbc -Monitor for signs of bleeding -SCDs to BLE while in bed -Heparin subq The high probability of a clinically significant, sudden or life threatening deterioration of the [multi] system(s) required my full and direct attention, intervention and personal management. The aggregate critical care time was [60] minutes. This time is in addition to time spent performing reported procedures but includes the following: [x] Data Review and interpretation [x] Patient assessment and monitoring of vital signs [x] Documentation [x] Medication orders and management Disposition Plan: icu Total Time Spent with Patient (Minutes): 60 History Interval history: Patient seen and examined at the bedside. Remains on the vent, not on any sedation. Patient open eyes spontaneously but is not following any commands. JAVIER overnight Hospitalist Physical - Constitutional Vitals: Temp Pulse Resp BP Pulse Ox 99.5 F 111 H 15 115/71 100 10/25/21 11:30 10/25/21 16:00 10/25/21 16:00 10/25/21 16:00 10/25/21 16:00 General appearance: Present: no acute distress, cachectic, other (On the vent) - EENT Eyes: Present: PERRL - Respiratory Respiratory effort: normal Respiratory: bilateral: rhonchi - Cardiovascular Rhythm: regular Heart Sounds: Present: S1 & S2 - Extremities Extremities: no ischemia, pulses intact, pulses symmetrical Extremity abnormal: edema - Peripheral Assessment Generalized Edema Type: Pitting Edema Degree: 3+ Capillary Refill: < 3 seconds Skin Temperature: Warm Peripheral Pulses: within normal limits - Abdominal General gastrointestinal: soft, non-distended, normal bowel sounds - Integumentary Integumentary: Present: warm, dry - Psychiatric Psychiatric: other (QUEENIE- On the vent, jaimie following commands) - Neurologic Neurologic: other (QUEENIE- On the vent, jaimie following commands) - Allied Health Allied health notes reviewed: nursing, case management HEART Score - HEART Score Troponin: Troponin T 0.039 ng/mL (0.00-0.029) H 10/24/21 11:26 Results - Labs CBC & Chem 7: 10/24/21 04:13 10/24/21 04:13 Labs: Laboratory Last Values WBC 8.4 K/mm3 (4.5-11.0) 10/24/21 04:13 RBC 2.46 M/mm3 (3.65-5.03) L 10/24/21 04:13 Hgb 6.8 gm/dl (11.8-15.2) L 10/24/21 04:13 Hct 21.5 % (35.5-45.6) L 10/24/21 04:13 MCV 87 fl (84-94) 10/24/21 04:13 MCH 27 pg (28-32) L 10/24/21 04:13 MCHC 31 % (32-34) L 10/24/21 04:13 RDW 21.9 % (13.2-15.2) H 10/24/21 04:13 Plt Count 325 K/mm3 (140-440) 10/24/21 04:13 Lymph % (Auto) 7.1 % (13.4-35.0) L 10/21/21 15:23 [place] % (Auto) 6.5 % (0.0-7.3) 10/21/21 15:23 Eos % (Auto) 2.0 % (0.0-4.3) 10/21/21 15:23 Baso % (Auto) 0.4 % (0.0-1.8) 10/21/21 15:23 Lymph # (Auto) 0.5 K/mm3 (1.2-5.4) L 10/21/21 15:23 [place] # (Auto) 0.5 K/mm3 (0.0-0.8) 10/21/21 15:23 Eos # (Auto) 0.1 K/mm3 (0.0-0.4) 10/21/21 15:23 Baso # (Auto) 0.0 K/mm3 (0.0-0.1) 10/21/21 15:23 Seg Neutrophils % 84.0 % (40.0-70.0) H 10/21/21 15: Seg Neutrophils # 6.1 K/mm3 (1.8-7.7) 10/21/21 15: APTT 41.4 Sec. (24.2-36.6) H 10/20/21 21:03 ABG pH 7.297 pH Units (7.350-7.450) L 10/25/21 04:00 ABG pCO2 31.8 mm Hg 10/25/21 04:00 ABG pO2 121.0 mm Hg (80.0-90.0) H 10/25/21 04:00 ABG HCO3 15.2 mmol/L (20.0-26.0) L 10/25/21 04:00 ABG O2 Saturation 98.2 % (95.0-99.0) 10/25/21 04:00 ABG O2 Content 9.6 (0.0-44) 10/25/21 04:00 ABG Base Excess -10.3 mmol/L (-2.0-3.0) L 10/25/21 04:00 ABG Hemoglobin 6.9 gm/dl (14.0-18.0) L 10/25/21 04:00 ABG Carboxyhemoglobin 1.4 % (0.0-5.0) 10/25/21 04:00 ABG Methemoglobin 0.6 % (0.0-1.5) 10/25/21 04:00 Oxyhemoglobin 96.1 % (95.0-99.0) 10/25/21 04:00 FiO2 30 % 10/25/21 04:00 Sodium 134 mmol/L (137-145) L 10/24/21 04:13 Potassium 4.8 mmol/L (3.6-5.0) 10/24/21 04:13 Chloride 106.2 mmol/L (98-107) 10/24/21 04:13 Carbon Dioxide 15 mmol/L (22-30) L 10/24/21 04:13 Anion Gap 18 mmol/L 10/24/21 04:13 BUN 19 mg/dL (9-20) 10/24/21 04:13 Creatinine 0.8 mg/dL (0.8-1.3) D 10/24/21 04:13 Estimated GFR > 60 ml/min 10/24/21 04:13 BUN/Creatinine Ratio 24 % 10/24/21 04:13 Glucose 89 mg/dL (75-100) 10/24/21 04:13 POC Glucose 136 mg/dL (70-105) H 10/25/21 03:21 Lactic Acid 2.40 mmol/L (0.7-2.0) H* 10/21/21 15:11 Calcium 7.6 mg/dL (8.4-10.2) L 10/24/21 04:13 Phosphorus 3.30 mg/dL (2.5-4.5) 10/24/21 04:13 Magnesium 1.90 mg/dL (1.7-2.3) 10/24/21 04:13 Total Bilirubin 0.90 mg/dL (0.1-1.2) 10/20/21 21:03 AST 70 units/L (5-40) H 10/20/21 21:03 ALT 7 units/L (7-56) 10/20/21 21:03 Alkaline Phosphatase 1174 units/L (35-129) H 10/20/21 21:03 Total Creatine Kinase 221 units/L (55-170) H 10/24/21 11:26 CK-MB (CK-2) 2.3 ng/mL (0.0-4.0) 10/24/21 11:26 CK-MB (CK-2) Rel Index 1.0 (0-4) 10/24/21 11:26 Troponin T 0.039 ng/mL (0.00-0.029) H 10/24/21 11:26 Total Protein 5.1 g/dL (6.3-8.2) L 10/20/21 21:03 Albumin 2.3 g/dL (3.9-5) L 10/20/21 21:03 Albumin/Globulin Ratio 0.8 % 10/20/21 21:03 Triglycerides 173 mg/dL (2-149) H 10/23/21 21:38 Cholesterol 99 mg/dL (50-199) 10/23/21 21:38 LDL Cholesterol Direct 33 mg/dL (50-130) L 10/23/21 21:38 HDL Cholesterol 23 mg/dL (40-59) L 10/23/21 21:38 Cholesterol/HDL Ratio 4.30 % 10/23/21 21:38 Urine Color [place] (Yellow) 10/20/21 Unknown Urine Turbidity Clear (Clear) 10/20/21 Unknown Urine pH 5.0 (5.0-7.0) 10/20/21 Unknown Ur Specific [place] 1.035 (1.003-1.030) H 10/20/21 Unknown Urine Protein 30 mg/dl mg/dL (Negative) 10/20/21 Unknown Urine Glucose (UA) Neg mg/dL (Negative) 10/20/21 Unknown Urine Ketones Neg mg/dL (Negative) 10/20/21 Unknown Urine Blood Neg (Negative) 10/20/21 Unknown Urine Nitrite Neg (Negative) 10/20/21 Unknown Ur Reducing Substances Not Reportable 10/20/21 Unknown Urine Bilirubin Neg (Negative) 10/20/21 Unknown Urine Ictotest Not Reportable 10/20/21 Unknown Urine Urobilinogen < 2.0 mg/dL (<2.0) 10/20/21 Unknown Ur Leukocyte Esterase Negative (Negative) 10/20/21 Unknown Urine WBC (Auto) 2.0 /HPF (0.0-6.0) 10/20/21 Unknown Urine RBC (Auto) < 1.0 /HPF (0.0-6.0) 10/20/21 Unknown Urine Mucus Few /HPF 10/20/21 Unknown Vancomycin Trough 30.1 ug/mL (5.0-20.0) H 10/24/21 22:30 SARS-CoV-2 (PCR) Negative (Negative) 10/25/21 11:46 Blood Type A POSITIVE 10/21/21 07:37 Antibody Screen Negative 10/21/21 07:37 Crossmatch See Detail 10/21/21 07:37 Microbiology: Microbiology 10/20/21 21:03 Peripheral/Venous Blood Culture - Preliminary NO GROWTH AFTER 4 DAYS 10/20/21 21:03 Peripheral/Venous Blood Culture - Preliminary NO GROWTH AFTER 4 DAYS [place]/IV: Voiding Method Indwelling Catheter Active Medications - Current Medications Current Medications: Generic Name Dose Route Start Last Admin Trade Name Freq PRN Reason Stop Dose Admin Acetaminophen 650 mg 10/21/21 10:09 10/22/21 09:47 Acetaminophen 650 Mg Rect Supp IA 650 mg Q4H PRN Administration Pain, Mild (1-3) Dextrose 0 ml 10/21/21 15:11 10/23/21 00:55 Dextrose 10% *Hypoglycemia IV 250 ml PRN PRN Administration Hypoglycemia Fentanyl 50 mcg 10/20/21 20:44 10/20/21 22:01 Fentanyl 100 Mcg/2 Ml Inj IV 50 mcg Q10MIN PRN Administration ANALGESIA Heparin Sodium (Porcine) 5,000 unit 10/21/21 10:00 10/25/21 09:21 Heparin 5,000 Unit/1 Ml Vial SUB-Q 5,000 unit Q12HR [place] Administration Hydromorphone HCl 0.5 mg 10/20/21 23:57 10/23/21 05:54 Hydromorphone 1 Mg/1 Ml Inj IV 0.5 mg Q3H PRN Administration Pain , Severe (7-10) Fentanyl Citrate 2,000 mcg in 100 mls @ 8.765 mls/hr 10/20/21 21:00 10/25/21 09:18 Fentanyl Drip Premix IV 2 mcg/kg/hr TITR [place] 17.53 mls/hr Administration Protocol 1 MCG/KG/HR Dextrose/Sodium Chloride 1,000 mls @ 125 mls/hr 10/23/21 21:25 10/25/21 11:30 D5/0.45ns IV 0 mls/hr DIRECT [place] Infusion Insulin Human Regular 0 units 10/21/21 16:00 10/25/21 09:26 Insulin Regular, Human 100 Units/1 Ml SUB-Q Not Given Q6H [facility] Protocol Metoprolol Tartrate 2.5 mg 10/24/21 12:00 10/25/21 12:53 Metoprolol Tartrate 5 Mg/5 Ml Inj IV 2.5 mg Q6HR [place] Administration Morphine Sulfate 2 mg 10/20/21 23:57 Morphine 2 Mg/1 Ml Inj IV Q4H PRN Pain, Moderate (4-6) Ondansetron HCl 4 mg 10/20/21 23:57 Ondansetron 4 Mg/2 Ml Inj IV Q8H PRN Nausea And Vomiting Sodium Chloride 10 ml 10/21/21 10:00 10/25/21 09:21 Sodium Chloride 0.9% 10 Ml Flush Syringe IV 10 ml BID [place] Administration Sodium Chloride 10 ml 10/20/21 23:57 10/24/21 21:27 Sodium Chloride 0.9% 10 Ml Flush Syringe IV 10 ml PRN PRN Administration LINE FLUSH Nutrition/Malnutrition Assess - Dietary Evaluation Nutrition/Malnutrition Findings: Nutrition Notes Start: 10/21/21 17:22 Freq: Status: Active Protocol: Document 10/21/21 17:22 FELECIA (Rec: 10/21/21 17:35 FELECIA [id number]) Nutrition Notes Need for Assessment generated from: MD Order Initial or Follow up Brief Note Current Diagnosis Sepsis,Respiratory Failure Other Pertinent Diagnosis Tracheostomy malfunction, Anemia, Metastatic Cancer, Weakness. Current Diet NPO (since 10/20 23:58). Height 5 ft 10 in Weight 80 kg [place] Body Weight (kg) 75.45 BMI 25.2 Intake Prior to Admission Good Weight change and time frame POt denies having loss body weight [employer]. Weight Status Appropriate Subjective/Other Information RD consult for evaluation of nutritional intake. Pt is currently on NPO, evaluation of nutritional intake cannot be performed. Will assess at F/U. Pt on mechanical ventilation through tracheostomy. Percent of energy/protein needs met: Pt currently on NPO. Nutrition Intervention Follow-Up By: 10/28/21 Additional Comments When pertinent, start monitoring food tolerance, %PO intake of meals, and BM.
[2021-10-26] MEDS: METOPROLOL TARTRATE 5 MG/5 ML INJ IV SCH ×3 (00:21→12:31)
[2021-10-26] MEDS: INSULIN REGULAR, HUMAN 100 UNITS/1 ML SUB-Q SCH ×3 (00:22→12:32)
[2021-10-26 04:13] LABS: ABG Base Excess -10.8 mmol/L (-2.0-3.0); ABG HCO3 16.4 mmol/L (20.0-26.0); ABG Methemoglobin 0.6 % (0.0-1.5); ABG Oxygen Saturation 87.7 % (95.0-99.0); ABG PCO2 42.3 mm Hg; ABG PH 7.206 pH Units (7.350-7.450); ABG PO2 60.2 mm Hg (80.0-90.0)
[2021-10-26] MEDS: fentaNYL DRIP Premix 2,000 MCG/100 ML BAG IV SCH (04:16)
--- NOTE | 2021-10-26 06:15 | XRay Report ---
CHEST 1 VIEW INDICATION / CLINICAL INFORMATION: follow up respiratory failure. COMPARISON: Chest x-ray 10/25/2021 FINDINGS: SUPPORT DEVICES: Endotracheal tube appears to be advanced within the right main bronchus retraction b y 3 cm recommended. Otherwise tubes and lines appear stable. HEART / MEDIASTINUM: No significant interval change. LUNGS / PLEURA: Improving aeration of the bilateral upper lobes. Mid-lower lung opacities remain pres ent unchanged. No pneumothorax. ADDITIONAL FINDINGS: Diffuse osseous metastatic disease unchanged. IMPRESSION: 1. Improving aeration in the mid to upper lungs. Minimal change in bilateral lower lung opacities. 2. Retraction of endotracheal tube 3 cm recommended for optimal positioning. Signer Name: Dhruv Johansen II, MD Signed: 10/26/2021 6:11 AM Workstation Name: [id number]
[2021-10-26] MEDS: HEPARIN 5,000 UNIT/1 ML VIAL SUB-Q SCH (09:38)
[2021-10-26] MEDS: ACETAMINOPHEN 650 MG RECT SUPP PR PRN (09:42)
--- NOTE | 2021-10-26 11:28 | Progress Note ---
Assessment and Plan 66 y/o male with chronic respiratory failure, admitted with dislodgement of trach. 10/26/21: Hospice today. Supportive care. 10/25/21: Continue supportive/comfort measures. To hospice tomorrow. 10/22/21: Patient with completely occluded airway proxmial/caudal to the 6.0 ET tube going through stoma. Per surgery here, they are not able to place trach and suggest transfer. I am considering calling his POA and discussing comfort m easures given this patient has metastatic cancer and because this was not done with contrast, rads states they cannot tell exactly what type if tissue is occluding airway but they are concerned for tumor vs some inflammatory tissue. I personally do no think another institution with ENT or Thoracic would accept this patient knowing his overall prognosis. Continue supportive measures for now. Called the Rehab/assisted doc who looked up patient. 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 I have spoken with general surgery about this as well. Will do the followin. Attempt to obtain records from [place], especially regarding the tracheal stenosis and the level of stenosis. 2. Will obtain CT of neck here, noncontrast to see if we can evaluate the level 3. Consider attempting to transfer back to [place] if gen surge not able to help with airway or to an institution that has ENT care 4. Tachycardia is sinus. Patient is in pain but likely is volume deplete as well. He has gotten one unit of blood and will give several boluses of fluids now and reassess as tolerated. 5. Anemia, likely from chronic disease. Agree with transfusion but would have given 2 units. 6. Pain control 7. Guarded prognosis. CCT 31 minutes. Subjective Date of service: 10/26/21 Interval history: No acute events. Going to hospice at 1400 Objective Vital Signs - 12hr 10/25/21 10/26/21 10/26/21 23:30 00:00 00:21 Temperature 98.3 F Pulse Rate 117 H 118 H 116 H Pulse Rate [ 118 H From Monitor] Respiratory 19 19 Rate Blood Pressure 108/70 107/73 107/73 O2 Sat by Pulse 96 95 Oximetry 10/26/21 10/26/21 10/26/21 00:30 01:00 01:30 Temperature Pulse Rate 108 H 110 H 112 H Pulse Rate [ From Monitor] Respiratory 18 18 19 Rate Blood Pressure 94/63 94/63 103/68 O2 Sat by Pulse 93 97 94 Oximetry 10/26/21 10/26/21 10/26/21 02:00 02:30 03:00 Temperature Pulse Rate 113 H 113 H 118 H Pulse Rate [ From Monitor] Respiratory 20 21 19 Rate Blood Pressure 101/67 106/66 108/60 O2 Sat by Pulse 92 93 92 Oximetry 10/26/21 10/26/21 10/26/21 03:30 04:00 04:30 Temperature 99.3 F Pulse Rate 117 H 117 H 118 H Pulse Rate [ 117 H From Monitor] Respiratory 21 21 23 Rate Blood Pressure 100/66 109/66 110/69 O2 Sat by Pulse 91 89 Oximetry 10/26/21 10/26/21 10/26/21 04:49 05:00 05:30 Temperature Pulse Rate 121 H 120 H 118 H Pulse Rate [ From Monitor] Respiratory 19 23 Rate Blood Pressure 110/69 104/65 106/61 O2 Sat by Pulse 92 93 96 Oximetry 10/26/21 10/26/21 10/26/21 05:53 06:00 06:30 Temperature Pulse Rate 120 H 111 H 113 H Pulse Rate [ From Monitor] Respiratory 24 20 Rate Blood Pressure 106/61 96/68 102/65 O2 Sat by Pulse Oximetry 10/26/21 10/26/21 10/26/21 07:00 07:21 07:30 Temperature Pulse Rate 114 H 113 H 115 H Pulse Rate [ From Monitor] Respiratory 21 23 Rate Blood Pressure 105/59 105/59 107/69 O2 Sat by Pulse 98 98 100 Oximetry 10/26/21 10/26/21 10/26/21 08:00 08:30 09:00 Temperature 100.3 F H Pulse Rate 115 H 116 H 116 H Pulse Rate [ From Monitor] Respiratory 23 22 20 Rate Blood Pressure 108/64 110/68 97/68 O2 Sat by Pulse 100 92 Oximetry 10/26/21 10/26/21 10/26/21 09:30 10:00 11:24 Temperature Pulse Rate 117 H 118 H 120 H Pulse Rate [ From Monitor] Respiratory 20 20 Rate Blood Pressure 97/68 116/62 97/64 O2 Sat by Pulse 92 91 89 Oximetry Constitutional: asleep Eyes: non-icteric Neck: other (6.0 ET tube in stoma) Effort: normal Ascultation: Bilateral: clear Percussion: Bilateral: not dull Cardiovascular: other (sinus tach) Gastrointestinal: normoactive bowel sounds Extremities: no cyanosis, no edema, pulses normal CBC and BMP: 10/24/21 04:13 10/24/21 04:13 ABG, PT/INR, D-dimer: ABG ABG pH 7.206 pH Units (7.350-7.450) L 10/26/21 04:00 ABG pCO2 42.3 mm Hg 10/26/21 04:00 ABG pO2 60.2 mm Hg (80.0-90.0) L 10/26/21 04:00 ABG O2 Saturation 87.7 % (95.0-99.0) L 10/26/21 04:00 Abnormal lab findings: Abnormal Labs 10/20/21 10/20/21 10/20/21 21:03 21:03 21:03 RBC 2.86 L Hgb 7.7 L Hct 23.6 L MCV 83 L MCH 27 L MCHC RDW 23.0 H Plt Count 535 H Lymph % (Auto) 6.7 L [place] % (Auto) 9.4 H Lymph # (Auto) 0.6 L [place] # (Auto) 0.9 H Seg Neutrophils % 83.5 H APTT 41.4 H ABG pH ABG pO2 ABG HCO3 ABG O2 Saturation ABG Base Excess ABG Hemoglobin Oxyhemoglobin Sodium 136 L Chloride Carbon Dioxide 18 L Creatinine 0.7 L Glucose 114 H POC Glucose Lactic Acid Calcium 7.1 L AST 70 H Alkaline Phosphatase 1174 H Total Creatine Kinase Troponin T Total Protein 5.1 L Albumin 2.3 L Triglycerides LDL Cholesterol Direct HDL Cholesterol Ur Specific Barn[place] Vancomycin Trough Crossmatch 10/20/21 10/20/21 10/20/21 21:03 22:30 Unknown RBC Hgb Hct MCV MCH MCHC RDW Plt Count Lymph % (Auto) [place] % (Auto) Lymph # (Auto) [place] # (Auto) Seg Neutrophils % APTT ABG pH ABG pO2 218.0 H ABG HCO3 18.0 L ABG O2 Saturation 99.3 H ABG Base Excess -6.4 L ABG Hemoglobin 7.6 L Oxyhemoglobin Sodium Chloride Carbon Dioxide Creatinine Glucose POC Glucose Lactic Acid 3.10 H* Calcium AST Alkaline Phosphatase Total Creatine Kinase Troponin T Total Protein Albumin Triglycerides LDL Cholesterol Direct HDL Cholesterol Ur Specific Barnard 1.035 H Vancomycin Trough Crossmatch 10/21/21 10/21/21 10/21/21 04:44 04:44 04:44 RBC 2.63 L Hgb 6.9 L Hct 21.7 L MCV 83 L MCH 26 L MCHC RDW 22.7 H Plt Count 490 H Lymph % (Auto) 7.0 L [place] % (Auto) 9.2 H Lymph # (Auto) 0.5 L [place] # (Auto) Seg Neutrophils % 82.4 H APTT ABG pH ABG pO2 94.2 H ABG HCO3 19.1 L ABG O2 Saturation ABG Base Excess -5.0 L ABG Hemoglobin 6.6 L Oxyhemoglobin Sodium Chloride Carbon Dioxide 17 L Creatinine 0.6 L Glucose POC Glucose Lactic Acid Calcium 7.6 L AST Alkaline Phosphatase Total Creatine Kinase Troponin T Total Protein Albumin Triglycerides LDL Cholesterol Direct HDL Cholesterol Ur Specific Barnard Vancomycin Trough Crossmatch 10/21/21 10/21/21 10/21/21 07:37 07:37 15:11 RBC Hgb Hct MCV MCH MCHC RDW Plt Count Lymph % (Auto) [place] % (Auto) Lymph # (Auto) [place] # (Auto) Seg Neutrophils % APTT ABG pH ABG pO2 ABG HCO3 ABG O2 Saturation ABG Base Excess ABG Hemoglobin Oxyhemoglobin Sodium Chloride Carbon Dioxide Creatinine Glucose POC Glucose Lactic Acid 4.10 H* 2.40 H* Calcium AST Alkaline Phosphatase Total Creatine Kinase Troponin T Total Protein Albumin Triglycerides LDL Cholesterol Direct HDL Cholesterol Ur Specific Barnard Vancomycin Trough Crossmatch See Detail 10/21/21 10/22/21 10/22/21 15:23 04:15 04:24 RBC 2.51 L 2.76 L Hgb 6.8 L 7.4 L Hct 20.9 L 23.3 L MCV 83 L MCH 27 L 27 L MCHC RDW 21.6 H 22.0 H Plt Count Lymph % (Auto) 7.1 L [place] % (Auto) Lymph # (Auto) 0.5 L [place] # (Auto) Seg Neutrophils % 84.0 H APTT ABG pH 7.337 L ABG pO2 94.2 H ABG HCO3 19.5 L ABG O2 Saturation ABG Base Excess -5.8 L ABG Hemoglobin 7.2 L Oxyhemoglobin Sodium Chloride Carbon Dioxide Creatinine Glucose POC Glucose Lactic Acid Calcium AST Alkaline Phosphatase Total Creatine Kinase Troponin T Total Protein Albumin Triglycerides LDL Cholesterol Direct HDL Cholesterol Ur Specific Barnard Vancomycin Trough Crossmatch 10/22/21 10/22/21 10/22/21 04:24 05:11 09:23 RBC Hgb Hct MCV MCH MCHC RDW Plt Count Lymph % (Auto) [place] % (Auto) Lymph # (Auto) [place] # (Auto) Seg Neutrophils % APTT ABG pH ABG pO2 ABG HCO3 ABG O2 Saturation ABG Base Excess ABG Hemoglobin Oxyhemoglobin Sodium Chloride 109.2 H Carbon Dioxide 18 L Creatinine 0.5 L Glucose POC Glucose 61 L 69 L Lactic Acid Calcium 7.5 L AST Alkaline Phosphatase Total Creatine Kinase Troponin T Total Protein Albumin Triglycerides LDL Cholesterol Direct HDL Cholesterol Ur Specific Barnard Vancomycin Trough Crossmatch 10/23/21 10/23/21 10/23/21 04:06 07:41 07:41 RBC 2.82 L Hgb 7.6 L Hct 24.6 L MCV MCH 27 L MCHC 31 L RDW 21.8 H Plt Count Lymph % (Auto) [place] % (Auto) Lymph # (Auto) [place] # (Auto) Seg Neutrophils % APTT ABG pH 7.202 L ABG pO2 162.4 H ABG HCO3 19.1 L ABG O2 Saturation ABG Base Excess -8.3 L ABG Hemoglobin 7.4 L Oxyhemoglobin Sodium 135 L Chloride Carbon Dioxide 16 L Creatinine 0.5 L Glucose POC Glucose Lactic Acid Calcium 7.9 L AST Alkaline Phosphatase Total Creatine Kinase Troponin T Total Protein Albumin Triglycerides LDL Cholesterol Direct HDL Cholesterol Ur Specific Barnard Vancomycin Trough Crossmatch 10/23/21 10/24/21 10/24/21 21:38 04:05 04:13 RBC Hgb Hct MCV MCH MCHC RDW Plt Count Lymph % (Auto) [place] % (Auto) Lymph # (Auto) [place] # (Auto) Seg Neutrophils % APTT ABG pH 7.242 L ABG pO2 ABG HCO3 17.6 L ABG O2 Saturation ABG Base Excess -9.1 L ABG Hemoglobin 8.6 L Oxyhemoglobin Sodium Chloride Carbon Dioxide Creatinine Glucose POC Glucose Lactic Acid Calcium AST Alkaline Phosphatase Total Creatine Kinase 368 H 354 H Troponin T 0.041 H 0.039 H Total Protein Albumin Triglycerides 173 H LDL Cholesterol Direct 33 L HDL Cholesterol 23 L Ur Specific Barn[place] Vancomycin Trough Crossmatch 10/24/21 10/24/2110/24/22 04:13 04:13 11:26 RBC 2.46 L Hgb 6.8 L Hct 21.5 L MCV MCH 27 L MCHC 31 L RDW 21.9 H Plt Count Lymph % (Auto) [place] % (Auto) Lymph # (Auto) [place] # (Auto) Seg Neutrophils % APTT ABG pH ABG pO2 ABG HCO3 ABG O2 Saturation ABG Base Excess ABG Hemoglobin Oxyhemoglobin Sodium 134 L Chloride Carbon Dioxide 15 L Creatinine Glucose POC Glucose Lactic Acid Calcium 7.6 L AST Alkaline Phosphatase Total Creatine Kinase 221 H Troponin T 0.039 H Total Protein Albumin Triglycerides LDL Cholesterol Direct HDL Cholesterol Ur Specific [place] Vancomycin Trough Crossmatch 10/24/21 10/24/21 10/24/21 21:07 22:30 23:22 RBC Hgb Hct MCV MCH MCHC RDW Plt Count Lymph % (Auto) [place] % (Auto) Lymph # (Auto) [place] # (Auto) Seg Neutrophils % APTT ABG pH ABG pO2 ABG HCO3 ABG O2 Saturation ABG Base Excess ABG Hemoglobin Oxyhemoglobin Sodium Chloride Carbon Dioxide Creatinine Glucose POC Glucose 117 H 134 H Lactic Acid Calcium AST Alkaline Phosphatase Total Creatine Kinase Troponin T Total Protein Albumin Triglycerides LDL Cholesterol Direct HDL Cholesterol Ur Specific [place] Vancomycin Trough 30.1 H Crossmatch 10/25/21 10/25/21 10/25/21 03:21 04:00 09:22 RBC Hgb Hct MCV MCH MCHC RDW Plt Count Lymph % (Auto) [place] % (Auto) Lymph # (Auto) [place] # (Auto) Seg Neutrophils % APTT ABG pH 7.297 L ABG pO2 121.0 H ABG HCO3 15.2 L ABG O2 Saturation ABG Base Excess -10.3 L ABG Hemoglobin 6.9 L Oxyhemoglobin Sodium Chloride Carbon Dioxide Creatinine Glucose POC Glucose 136 H 147 H Lactic Acid Calcium AST Alkaline Phosphatase Total Creatine Kinase Troponin T Total Protein Albumin Triglycerides LDL Cholesterol Direct HDL Cholesterol Ur Specific [place] Vancomycin Trough Crossmatch 10/25/21 10/26/21 10/26/21 11:14 00:19 04:00 RBC Hgb Hct MCV MCH MCHC RDW Plt Count Lymph % (Auto) [place] % (Auto) Lymph # (Auto) [place] # (Auto) Seg Neutrophils % APTT ABG pH 7.206 L ABG pO2 60.2 L ABG HCO3 16.4 L ABG O2 Saturation 87.7 L ABG Base Excess -10.8 L ABG Hemoglobin 7.8 L Oxyhemoglobin 85.8 L Sodium Chloride Carbon Dioxide Creatinine Glucose POC Glucose 169 H 132 H Lactic Acid Calcium AST Alkaline Phosphatase Total Creatine Kinase Troponin T Total Protein Albumin Triglycerides LDL Cholesterol Direct HDL Cholesterol Ur Specific [place] Vancomycin Trough Crossmatch 10/26/21 05:24 RBC Hgb Hct MCV MCH MCHC RDW Plt Count Lymph % (Auto) [place] % (Auto) Lymph # (Auto) [place] # (Auto) Seg Neutrophils % APTT ABG pH ABG pO2 ABG HCO3 ABG O2 Saturation ABG Base Excess ABG Hemoglobin Oxyhemoglobin Sodium Chloride Carbon Dioxide Creatinine Glucose POC Glucose 129 H Lactic Acid Calcium AST Alkaline Phosphatase Total Creatine Kinase Troponin T Total Protein Albumin Triglycerides LDL Cholesterol Direct HDL Cholesterol Ur Specific [place] Vancomycin Trough Crossmatch
--- NOTE | 2021-10-26 11:40 | Discharge Summary ---
<RAMIN HERNANDEZ - Last Filed: 10/26/21 14:14> Providers - Providers Date of Admission: 10/20/21 23:57 Date of discharge: 10/26/21 Attending physician: YOGESH DU MD 10/20/21 20:43 Consult to Physician [CONS] Urgent Comment: Consulting Provider: VIRGINIA RAZA Physician Instructions: Reason For Exam: trach repllacement 10/20/21 20:44 Consult to Dietitian/Nutrition [CONS] Routine Physician Instructions: Reason For Exam: Reason for Consult: Evaluate nutritional intake Consult to Physician [CONS] Stat Comment: Consulting Provider: LISBET ABREU Physician Instructions: Reason For Exam: Sepsis, failed tracheostomy 10/23/21 14:46 Consult to Case Management [CONS] Routine Services Needed at Discharge: Other Notified:: yes Phone number called:: yes Was contact made?: Yes If yes, spoke with:: Carine Time called:: 09:35 Comment:: inpatient hospice arrangement Primary care physician: LUKE OTERO MD Hospitalization Reason for admission: dislodgment of tracheostomy Condition: Fair Hospital course: This is a 66-year-old male with 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 LR bolus for tachycardia. Upon review of medical records it was noted that patient was on beta-giovanni. No p.o. access currently. Withholding IV beta-giovanni initiation due to low blood pressure. We will continue antibiotics due to concerning imaging. Neck CT pending. 10/22: Ct neck results noted. Supraglottic stenosis noted as well as diffuse metatatic disease c/w history of prostate ca. Surgical and PCCM perspective noted. Unfortunately, will likely need ENT services if POA decides be aggressive with tracheal stenosis which we do not have in house. Will need to discuss with POA re: GOC and how aggressive they would like to be. Hgb drop noted this AM, transfused one unit. 10/23: DHT placed, consulted NTR, once TF started can wean off dextrose. POA updated by Dr. Vanegas 10/24: Dr. Vanegas spoke to POA who will likely present Monday afternoon and has agreed to transfer patient to hospice. No acute events reported overnight. Metoprolol decreased due to soft blood pressures. 10/25: Plan for inpatient hospice tomorrow. Continue current supportive care Neuro: h/o chronic pain -Sedated with fentanyl -RASS goal 0 to -1 -Avoid delirium -Reorientation as needed -Maintain sleep-wake cycle -As needed analgesia -Bilateral restraints for safety Cardiac: ST, h/o SVT, HTN -Cardiology consulted, appreciate recommendations -Blood pressure monitoring per protocol -s/p 5.5 L IVF bolus -Of note patient home meds include metoprolol 50mg BID -IV BB with hold parameters Respiratory: Chronic respiratory failure, h/o tracheal stenosis, vocal cord paralysis -CCM consulted, appreciate recommendations -Intubated with a 6.0 ETT in trach on 10/20 in the ED -unable to be converted to trach by surgery -A.m. vent settings: Assist-control/PRVC tidal volume 500, rate 18, PEEP 6, FiO2 30% -See RT notes for titration -A.m. ABG noted -VAP bundle -SPO2 monitoring -CT neck shows soft tissue thickening in the supraglottic trachea above the tracheostomy level with soft tissue thickening surrounding upper tracheal endotracheal tube, diffuse osseous metastasis, bilateral pleural effusions (right > left) GI: Protein calorie malnutrition, elevated alkaline phos and AST -24 hours +3275 mL -PPI -MIVF -Ntr consult for TF -Trend LFTs : Metabolic acidosis -Strict intake and output -Renally dose medications -Avoid nephrotoxic medications -Daily weights ID: Lactic acidosis, ? PNA, Sepsis -meets criteria with LA, tachycardia, possible pna on imaging -Antibiotic therapy with cefepime, vancomycin -Follow-up blood culture -Monitor WBC and temperature curve Endo: NAD -Avoid hypoglycemia -SSI -Accu-Cheks q. 6 Heme: Anemia, h/o anemia of chronic disease -Trend CBC -Transfuse hemoglobin less than 7 -s/p 2 units prbc -Monitor for signs of bleeding -SCDs to BLE while in bed -Heparin subq Disposition: 51 HOSPICE/MEDICAL FACILITY Final Discharge Diagnosis (Prints w/discharge instructions): dislodgment of tracheostomy Time spent for discharge: 35 Core Measure Documentation - Palliative Care Palliative Care/ Comfort Measures: Hospice Care - Core Measures Any of the following diagnoses?: none Exam - Constitutional Vitals: Temp Pulse Resp BP Pulse Ox 100.3 F H 120 H 20 97/64 89 10/26/21 08:00 10/26/21 11:24 10/26/21 10:00 10/26/21 11:24 10/26/21 11:24 General appearance: Present: no acute distress, other (On the vent, not following commands) - EENT Eyes: Present: PERRL - Respiratory Respiratory effort: normal Respiratory: bilateral: rhonchi - Cardiovascular Rhythm: regular Heart Sounds: Present: S1 & S2 - Extremities Extremities: no ischemia, pulses intact, pulses symmetrical Extremity abnormal: edema - Peripheral Assessment Generalized Edema Type: Non-pitting Edema Degree: 2+ Capillary Refill: < 3 seconds Skin Temperature: Warm Peripheral Pulses: within normal limits - Abdominal General gastrointestinal: Present: soft, non-distended, normal bowel sounds Male genitourinary: Present: deferred - Rectal Rectal Exam: deferred - Integumentary Integumentary: Present: warm, dry - Musculoskeletal Musculoskeletal: generalized weakness - Psychiatric Psychiatric: other (On the vent, not following commands) - Neurologic Neurologic: other (On the vent, not following commands) - Allied Health Allied health notes reviewed: nursing, case management Plan Activity: other (Per hospice facility) Diet: other (TF) Wound: open to air Special Instructions: other (Inpatient hospice) Follow up with: LUKE OTERO MD [Primary Care Provider] - 3-5 Days <YOGESH DU - Last Filed: 10/26/21 19:01> Providers - Providers Date of Admission: 10/20/21 23:57 Attending physician: YOGESH DU MD 10/20/21 20:43 Consult to Physician [CONS] Urgent Comment: Consulting Provider: VIRGINIA RAZA Physician Instructions: Reason For Exam: trach repllacement 10/20/21 20:44 Consult to Dietitian/Nutrition [CONS] Routine Physician Instructions: Reason For Exam: Reason for Consult: Evaluate nutritional intake Consult to Physician [CONS] Stat Comment: Consulting Provider: LISBET ABREU Physician Instructions: Reason For Exam: Sepsis, failed tracheostomy 10/23/21 14:46 Consult to Case Management [CONS] Routine Services Needed at Discharge: Other Notified:: yes Phone number called:: yes Was contact made?: Yes If yes, spoke with:: Carine Time called:: 09:35 Comment:: inpatient hospice arrangement Primary care physician: LUKE OTERO MD Hospitalization Hospital course: I saw and evaluated the patient. I agree with the findings and the plan of care as documented in the Nurse Practitioner's~note, with the following corrections and additions. Exam - Constitutional Vitals: Temp Pulse Resp BP Pulse Ox 99.9 F H 118 H 26 H 122/80 92 10/26/21 12:00 10/26/21 14:30 10/26/21 14:30 10/26/21 14:30 10/26/21 14:30
[2021-10-26 14:50] VITALS: BP 122/80
== END 2021-10-26 14:00 | disposition hospice, inpatient (51) | DRG 870 ==
LOC: ED 19:54 → CC1 23:57
PROVIDERS: ADMIT Hospitalist; ATTEND Internal Medicine
PROC: 5A1955Z Respiratory Ventilation, Greater than 96 Consecutive Hours (ICD-10-PCS; principal; 2021-10-20)
PROC: 0BH17EZ Insertion of Endotracheal Airway into Trachea, Via Natural or Artificial Opening (ICD-10-PCS; 2021-10-20)
PROC: 4A033R1 Measurement of Arterial Saturation, Peripheral, Percutaneous Approach (ICD-10-PCS; 2021-10-20)
PROC: 30233N1 Transfusion of Nonautologous Red Blood Cells into Peripheral Vein, Percutaneous Approach (ICD-10-PCS; 2021-10-21)
DX: A41.9 Sepsis, unspecified organism (principal); J96.21 Acute and chronic respiratory failure with hypoxia; J18.9 Pneumonia, unspecified organism; J95.03 Malfunction of tracheostomy stoma; C79.51 Secondary malignant neoplasm of bone; I47.1 Supraventricular tachycardia; E46 Unspecified protein-calorie malnutrition; Z20.822 Contact with and (suspected) exposure to COVID-19; C61 Malignant neoplasm of prostate; D64.9 Anemia, unspecified; J38.00 Paralysis of vocal cords and larynx, unspecified; Z68.31 Body mass index [BMI] 31.0-31.9, adult; Z66 Do not resuscitate; I10 Essential (primary) hypertension
CPT/HCPCS: 36415; 36600; 70490; 71045; 74018; 80048; 80053; 80061; 80202; 81001; 82140; 82550; 82553; 82803; 82962; 83735; 84100; 84484; 85025; 85027; 85730; 86850; 86900; 86901; 86920; 87040; 87070; 87086; 87205; 93005; 94002; 94003; 94640; G0378; J3490; J7070; J9280; Q0162; J0692; J1170; J1644; J2001; J3010; J3370; J7030; J7040; J7050; J7120; P9016; U0003